=== PATIENT | female | born 1955 ===

== ENCOUNTER 2020-03-25 06:20 | Day surgery (SDC) | payer MEDICARE, MEDICAID, SELFPAY ==
[2020-03-19 13:16] VITALS: BMI 29.7
--- NOTE | 2020-03-21 15:33 | P.CONAN_ITS ---
Documented by User: Remedios Barclay 03/21/20 15:34 HPI - Anesthesia Eval Consult details Narrative: 64yo F for Upper Endoscopy and Colonoscopy FOR[facility] Past Medical History Medical History (Updated 03/19/20 @ 13:07 by Raven Glover) Arthritis GERD (gastroesophageal reflux disease) Hiatal hernia Restless leg syndrome Surgical History Surgical History (Updated 03/19/20 @ 13:24 by Raven Glover) History of carpal tunnel release History of ear surgery History of esophagogastroduodenoscopy (EGD) History of pterygium excision Hx of colonoscopy Hx of hysterectomy Social History Social History (Updated 03/19/20 @ 13:08 by Raven Glover) Alcohol intake: current Alcohol intake frequency: holidays/special occasions only Smoking Status: Never smoker Use of substances other than those prescribed or required for medical reasons: No Advance Directives: No Advance Directives Information Provided: No Advance Directives on File: No Meds Allergies Allergy/AdvReac Type Severity Reaction Status Date / Time metronidazole [Flagyl] Allergy Unknown unknown Verified 04/24/19 00:00 Penicillins Allergy Rash Verified 03/19/20 13:10 egg Allergy Unknown GI upset Uncoded 03/19/20 13:10 Codeine Sulfate AdvReac Unknown palpitation Uncoded 03/19/20 13:10 Home Medications Medication Instructions Recorded Confirmed Type ergocalciferol (vitamin D2) 1,250 mcg PO QWEEK 03/19/20 03/19/20 History [Vitamin D2] esomeprazole magnesium [Nexium] 40 mg PO DAILY 03/19/20 03/19/20 History ropinirole [Requip] 5 mg PO BEDTIME 03/19/20 03/19/20 History spironolactone 50 mg PO DAILY 03/19/20 03/19/20 History Exam Exam Date and Time: March 21, 2020 1533 Height,Weight and Vital Signs: Height 5 ft Weight 68.946 kg Assessment and Plan Assessment Anesthesia Assessment: Chart Reviewed Documented by User: Cira Shukla 03/25/20 07:14 [facility] Past Medical History Medical History (Updated 03/19/20 @ 13:07 by Raven Glover) Arthritis GERD (gastroesophageal reflux disease) Hiatal hernia Restless leg syndrome Surgical History Surgical History (Updated 03/19/20 @ 13:24 by Raven Glover) History of carpal tunnel release History of ear surgery History of esophagogastroduodenoscopy (EGD) History of pterygium excision Hx of colonoscopy Hx of hysterectomy Social History Social History (Updated 03/19/20 @ 13:08 by Raven Glover) Alcohol intake: current Alcohol intake frequency: holidays/special occasions only Smoking Status: Never smoker Use of substances other than those prescribed or required for medical reasons: No Advance Directives: No Advance Directives Information Provided: No Advance Directives on File: No Meds Allergies Allergy/AdvReac Type Severity Reaction Status Date / Time metronidazole [Flagyl] Allergy Unknown unknown Verified 04/24/19 00:00 Penicillins Allergy Rash Verified 03/19/20 13:10 egg Allergy Unknown GI upset Uncoded 03/19/20 13:10 Codeine Sulfate AdvReac Unknown palpitation Uncoded 03/19/20 13:10 Home Medications Medication Instructions Recorded Confirmed Type ergocalciferol (vitamin D2) 1,250 mcg PO QWEEK 03/19/20 03/19/20 History [Vitamin D2] esomeprazole magnesium [Nexium] 40 mg PO DAILY 03/19/20 03/19/20 History ropinirole [Requip] 5 mg PO BEDTIME 03/19/20 03/19/20 History spironolactone 50 mg PO DAILY 03/19/20 03/19/20 History Exam Airway Mallampati Class: II TM Dist: >3cm Neck ROM: Full Heart: RRr Lungs: CTA BL Assessment and Plan Assessment Anesthesia Assessment: Anesthesia Plan Discussed and Chart Reviewed Final Anesthetic Review NPO: Yes ASA Class: II Final Preanesthetic Review: Meds/Allgs Chart Reviewed and Consent Obtained/Reviewed Patient Risk: Intermediate Procedure Risk: Intermediate Anesthetic Plan Anesthetic Plan: MAC: Disposition: Standard PACU
[2020-03-25] MEDS: Lactated Ringers 1,000 ML 100 ML IVCONT (07:08)
[2020-03-25 08:41] VITALS: BP 108/67; PULSE 64; RESP 16; TEMP 37.3; O2SAT 96
--- NOTE | 2020-03-25 08:48 | PM.OP ---
Brief Operative Note Date of Service: 03/25/20 Pre-op diagnosis: Monique's, Screening Post-op diagnosis: other (Hiatal hernia, Gastric polyp, colon polyp, Internal/External hemorrhoids) Procedure: EGD bwith biopsy, Colonoscopy to cecum with bx/removal of polyp Surgeon: Prem Arroyo Anesthesia: MAC Estimated blood loss (mL): 3.0 Pathology: other (A. EG Junction at 35cm B. Gastric polyp C. Polyp at 60cm) Condition: stable Disposition: PACU
[2020-03-25 08:56] VITALS: BP 117/65; PULSE 61; RESP 18; TEMP 36.3; O2SAT 99
--- NOTE | 2020-03-25 09:19 | HO.POSTANES ---
Post Anesthesia Evaluation Post Anesthesia Evaluation Vital Signs: Vital Signs Temp Pulse Resp BP Pulse Ox 03/25/20 08:56 97.4 F 61 18 117/65 99 03/25/20 08:41 99.2 F 64 16 108/67 96 Anesthesia: Monitored Mental Status: Awake Pain Control: Satisfactory Nausea/Vomiting: None Hydration: Adequate Anesthesia-Related Issues: No Anes. Related Issues
--- NOTE | 2020-03-25 09:55 | OP_ITS ---
SURGEON: Prem Arroyo MD INDICATIONS: The patient presents for evaluation of gastroesophageal reflux, Monique's esophagus, personal history of tubular adenoma of the colon, family history of colon cancer, and colorectal cancer screening. Full consent was obtained from her for this, including risks of bleeding and perforation. PREOPERATIVE DIAGNOSIS: POSTOPERATIVE DIAGNOSIS: PROCEDURE PERFORMED: Esophagogastroduodenoscopy with biopsies, and colonoscopy to cecum with biopsy and removal of polyp. ESTIMATED BLOOD LOSS: COMPLICATIONS: ANESTHESIA: Monitored anesthesia care. ASSISTANTS: SPECIMENS: PREOPERATIVE DIAGNOSES: Monique's esophagus, personal history of tubular adenoma of the colon, family history of colon cancer, and colorectal cancer screening. POSTOPERATIVE DIAGNOSES: Monique's esophagus, personal history of tubular adenoma of the colon, family history of colon cancer, and colorectal cancer screening, hiatal hernia, gastric polyps, colon polyp, diverticulosis, internal and external hemorrhoids. DESCRIPTION OF PROCEDURE: The patient was placed in the left lateral decubitus position. The Olympus video gastroscope was passed in the posterior oropharynx and upper esophagus under direct vision. The scope was passed slowly into the distal esophagus. The gastroesophageal junction appeared at 35 cm. This area was somewhat irregular consistent with reflux and possible small less than 1 cm areas of Monique's mucosa. There was no esophagitis. There were no lesions. The scope was entered into the stomach. There was a small hiatal hernia. The scope was advanced to pylorus. The duodenum was cannulated the descending portion. The duodenum including the bulb appeared normal without mass or ulceration. Scope was withdrawn back in the stomach. The gastric antrum and body appeared normal with good peristalsis. The scope was retroflexed visualizing the proximal stomach carefully, which appeared normal, without any mass or ulceration, other than an approximately 8 mm probable hyperplastic polyps in the proximal stomach, which was biopsied twice. The remainder of the proximal stomach appeared normal. The scope was straightened and withdrawn back to the esophagus. Multiple biopsies were obtained at the EG junction at 35 cm. Proximal to this, the esophageal mucosa appeared normal. The scope was withdrawn from the patient. She was turned around for the colonoscopy. The digital rectal exam revealed external hemorrhoids. The Olympus video pediatric colonoscope was entered into the rectum and advanced easily to the cecum. Once in the cecum, I did identify normal-appearing cecal pouch with appendiceal orifice and a normal-appearing ileocecal valve. There was transillumination of light deep in the right lower quadrant. The scope was slowly withdrawn assessing all mucosal surfaces carefully. Preparation was excellent. At 60 cm was a flat approximately 3 mm polyp, which was biopsied and completely removed with cold biopsy forceps. I did not visualize any other polyps, colitis, or angiodysplasia. There was a moderate amount of sigmoid diverticulosis. In the rectum, scope was retroflexed visualizing internal hemorrhoids, but no other pathology. The rectal mucosa appeared normal. The scope was straightened and withdrawn from the patient. She tolerated both procedures well and was returned to recovery area in stable condition. IMPRESSION: 1. Hiatal hernia, history of Monique's esophagus. 2. Gastric polyp. 3. Colon polyp. 4. Diverticulosis. 5. Internal and external hemorrhoids. PLAN: The results of the pathology will be checked. I would recommend a repeat upper endoscopy and colonoscopy in 5 years. She will continue her Nexium for reflux. She was advised not to use any aspirin and NSAIDs for 1 week. MD MINAL Torres/VERONICA / [phone]
== END 2020-03-25 09:25 | disposition home or self-care (01) ==
PROVIDERS: PCP Internal Medicine; Visit Provider Internal Medicine
PROC: (CPT 45380; principal; 2020-03-25 07:30)
DX: Z12.11 Encounter for screening for malignant neoplasm of colon (principal); Z86.010 Personal history of colon polyps; Z80.0 Family history of malignant neoplasm of digestive organs; D12.4 Benign neoplasm of descending colon; K57.30 Diverticulosis of large intestine without perforation or abscess without bleeding; K64.8 Other hemorrhoids; K64.4 Residual hemorrhoidal skin tags; K22.70 Barrett's esophagus without dysplasia; K21.9 Gastro-esophageal reflux disease without esophagitis; K44.9 Diaphragmatic hernia without obstruction or gangrene; K31.7 Polyp of stomach and duodenum; B96.81 Helicobacter pylori [H. pylori] as the cause of diseases classified elsewhere; Z88.0 Allergy status to penicillin; Z88.8 Allergy status to other drugs, medicaments and biological substances; Z79.899 Other long term (current) drug therapy
CPT/HCPCS: 45380; 43239; 88305; 88342

== ENCOUNTER 2020-06-10 10:57 | Outpatient (REF) | payer MEDICARE, MEDICAID, SELFPAY ==
[2020-06-10 13:47] LABS: MANUAL DIFF FLAG NO
[2020-06-10 14:08] LABS: Basophils Absolute Auto 0.1 X10*3/uL (0.0-0.2); Basophils Percent Auto 0.7 % (0-2); Eosinophils Absolute Auto 0.1 X10*3/uL (0.0-0.4); Eosinophils Percent Auto 1.5 % (0-4); Hemoglobin 14.3 g/dl (12.0-16.0); Imm Gran Abs Auto 0.04 X10*3/uL (0.00-0.03); Imm Gran Pct Auto 0.5 % (0.0-0.4); Lymphocytes Absolute Auto 2.4 X10*3/uL (1.2-4.9); Lymphocytes Percent Auto 30.3 % (20-40); Mean Corpuscular HGB Conc 33.3 g/dl (31.0-35.0); Mean Corpuscular Hemoglobin 29.8 pg (27.0-33.0); Mean Corpuscular Volume 89.6 fL (80-98); Mean Platelet Volume 10.3 fL (9.4-12.3); Monocytes Absolute Auto 0.6 X10*3/uL (0.1-1.2); Monocytes Percent Auto 7.7 % (2-11); Neutrophils Absolute Auto 4.8 X10*3/uL (2.0-8.3); Neutrophils Percent Auto 59.3 % (45-73); Platelet Count 292 X10*3/uL (160-400); Red Cell Distribution Width 13.3 % (11.0-16.0)
[2020-06-10 14:26] LABS: Alanine Aminotransferase 18 U/L (0-31); Albumin Level 4.1 g/dL (3.5-5.0); Alkaline Phosphatase 116 U/L (39-117); Anion Gap 14 (12-20); Aspartate Amino Transferase 22 U/L (5-31); Bilirubin Total 0.7 mg/dL (0.0-1.0); Blood Urea Nitrogen 14 mg/dL (9-16); Calcium 9.1 mg/dL (8.4-10.2); Carbon Dioxide 27 mmol/L (22-29); Chloride 103 mmol/L (96-108); Cholesterol 222 mg/dL; Estimated Glomerular Filt Rate > 60; Glucose Fasting 117 mg/dL (60-99); HDL Cholesterol 45 mg/dL; LDL Cholesterol Calculated 139 mg/dl; Potassium 4.1 mmol/L (3.3-5.1); Sodium 140 mmol/L (135-145); Total Protein 7.3 g/dL (6.5-8.0); Triglycerides 194 mg/dL
[2020-06-10 14:48] LABS: Vitamin D 25-OH Total 36.3 ng/mL (>30)
== END 2020-06-10 10:58 | disposition home or self-care (01) ==
LOC: HO.HMGCLDS 10:57
PROVIDERS: PCP Internal Medicine; Visit Provider Internal Medicine
DX: E78.5 Hyperlipidemia, unspecified (principal); M85.80 Other specified disorders of bone density and structure, unspecified site; R73.01 Impaired fasting glucose; Z78.0 Asymptomatic menopausal state
CPT/HCPCS: 36415; 80053; 80061; 82306; 85025

== ENCOUNTER 2020-10-04 07:58 | Outpatient (REF) | payer MEDICARE, MEDICAID, SELFPAY ==
[2020-10-04 12:11] LABS: Estimated Average Glucose 146 mg/dL; Hemoglobin A1C 186.9595 umol/L; Hemoglobin A1c % 6.7 %
[2020-10-04 12:21] LABS: Alanine Aminotransferase 10 U/L (0-31); Anion Gap 13 (12-20); Aspartate Amino Transferase 20 U/L (5-31); Blood Urea Nitrogen 11 mg/dL (9-16); Calcium 9.5 mg/dL (8.4-10.2); Carbon Dioxide 26 mmol/L (22-29); Chloride 105 mmol/L (96-108); Cholesterol 202 mg/dL; Estimated Glomerular Filt Rate > 60; Glucose Fasting 129 mg/dL (60-99); HDL Cholesterol 44 mg/dL; LDL Cholesterol Calculated 128 mg/dl; Potassium 4.2 mmol/L (3.3-5.1); Sodium 140 mmol/L (135-145); Triglycerides 152 mg/dL
[2020-10-04 12:23] LABS: Vitamin D 25-OH Total 38.2 ng/mL (>30)
== END 2020-10-04 07:59 | disposition home or self-care (01) ==
LOC: HO.HMGCLDS 07:58
PROVIDERS: PCP Internal Medicine; Visit Provider Internal Medicine
DX: E78.5 Hyperlipidemia, unspecified (principal); M85.80 Other specified disorders of bone density and structure, unspecified site; R73.01 Impaired fasting glucose; Z78.0 Asymptomatic menopausal state; I10 Essential (primary) hypertension
CPT/HCPCS: 36415; 80048; 80061; 82306; 83036; 84450; 84460

== ENCOUNTER 2021-02-10 09:54 | Outpatient (REF) | payer MEDICARE, MEDICAID, SELFPAY ==
[2021-02-10 12:07] LABS: Alanine Aminotransferase 18 U/L (0-31); Anion Gap 12 (12-20); Aspartate Amino Transferase 24 U/L (5-31); Blood Urea Nitrogen 13 mg/dL (9-16); Calcium 9.6 mg/dL (8.4-10.2); Carbon Dioxide 26 mmol/L (22-29); Chloride 106 mmol/L (96-108); Cholesterol 198 mg/dL; Estimated Glomerular Filt Rate > 60; Glucose Fasting 116 mg/dL (60-99); HDL Cholesterol 45 mg/dL; LDL Cholesterol Calculated 120 mg/dl; Potassium 4.5 mmol/L (3.3-5.1); Sodium 139 mmol/L (135-145); Triglycerides 166 mg/dL
[2021-02-10 12:29] LABS: Microalbum/Creatinine Ratio Ur 5.2 ug/mg cr
[2021-02-10 12:55] LABS: Estimated Average Glucose 151 mg/dL; Hemoglobin A1c % 6.9 %
== END 2021-02-10 09:55 | disposition home or self-care (01) ==
LOC: HO.HMGCLDS 09:54
PROVIDERS: Visit Provider Internal Medicine
DX: E11.9 Type 2 diabetes mellitus without complications (principal); E78.5 Hyperlipidemia, unspecified; I10 Essential (primary) hypertension
CPT/HCPCS: 36415; 80048; 80061; 82043; 83036; 84450; 84460

== ENCOUNTER 2021-06-11 10:53 | Outpatient (REF) | payer OTHER, SELFPAY ==
[2021-06-11 13:44] LABS: Basophils Absolute Auto 0.1 X10*3/uL (0.0-0.2); Basophils Percent Auto 0.7 % (0-2); Eosinophils Absolute Auto 0.2 X10*3/uL (0.0-0.4); Eosinophils Percent Auto 1.8 % (0-4); Hematocrit 44.2 % (37.0-47.0); Hemoglobin 14.4 g/dl (12.0-16.0); Imm Gran Abs Auto 0.02 X10*3/uL (0.00-0.03); Imm Gran Pct Auto 0.2 % (0.0-0.4); Lymphocytes Absolute Auto 3.2 X10*3/uL (1.2-4.9); Lymphocytes Percent Auto 32.8 % (20-40); MANUAL DIFF FLAG NO; Mean Corpuscular HGB Conc 32.6 g/dl (31.0-35.0); Mean Corpuscular Hemoglobin 29.6 pg (27.0-33.0); Mean Corpuscular Volume 90.8 fL (80.0-98.0); Mean Platelet Volume 10.1 fL (9.4-12.3); Monocytes Absolute Auto 0.7 X10*3/uL (0.1-1.2); Monocytes Percent Auto 7.6 % (2-11); Neutrophils Absolute Auto 5.6 x10*3/uL (2.0-8.3); Neutrophils Percent Auto 56.9 % (45-73); Platelet Count 324 X10*3/uL (160-400); Red Blood Count 4.87 X10*6/uL (4.20-5.50); Red Cell Distribution Width 13.9 % (11.0-16.0); White Blood Count 9.8 X10*3/uL (4.8-10.8)
[2021-06-11 13:58] LABS: Estimated Average Glucose 137 mg/dL; Hemoglobin A1c % 6.4 %
[2021-06-11 13:59] LABS: Alanine Aminotransferase 17 U/L (0-31); Anion Gap 11 (12-20); Aspartate Amino Transferase 20 U/L (5-31); Blood Urea Nitrogen 11 mg/dL (9-16); Calcium 9.8 mg/dL (8.4-10.2); Carbon Dioxide 30 mmol/L (22-29); Chloride 103 mmol/L (96-108); Cholesterol 156 mg/dL; Estimated Glomerular Filt Rate > 60; Glucose Fasting 109 mg/dL (60-99); HDL Cholesterol 43 mg/dL; LDL Cholesterol Calculated 82 mg/dl; Potassium 4.5 mmol/L (3.3-5.1); Sodium 139 mmol/L (135-145); Triglycerides 155 mg/dL
[2021-06-11 14:13] LABS: Creatinine Urine 299.11 mg/dL
[2021-06-11 14:24] LABS: Vitamin D 25-OH Total 37.4 ng/mL (>30)
[2021-06-11 14:33] LABS: Microalbum/Creatinine Ratio Ur 6.3 ug/mg cr
== END 2021-06-11 10:54 | disposition home or self-care (01) ==
LOC: HO.HMGCLDS 10:53
PROVIDERS: PCP Internal Medicine; Visit Provider Internal Medicine
DX: E11.9 Type 2 diabetes mellitus without complications (principal); E78.5 Hyperlipidemia, unspecified; I10 Essential (primary) hypertension; K21.9 Gastro-esophageal reflux disease without esophagitis; G25.81 Restless legs syndrome; M85.80 Other specified disorders of bone density and structure, unspecified site; Z78.0 Asymptomatic menopausal state
CPT/HCPCS: 36415; 80048; 80061; 82043; 82306; 83036; 84450; 84460; 85025

== ENCOUNTER 2022-04-16 09:47 | Outpatient (REF) | payer OTHER, SELFPAY ==
[2022-04-16 12:01] LABS: Alanine Aminotransferase 17 U/L (0-31); Anion Gap 13 (12-20); Aspartate Amino Transferase 23 U/L (5-31); Blood Urea Nitrogen 10 mg/dL (9-16); Calcium 9.7 mg/dL (8.4-10.2); Carbon Dioxide 28 mmol/L (22-29); Chloride 104 mmol/L (96-108); Cholesterol 191 mg/dL; Estimated Glomerular Filt Rate > 60; Glucose Fasting 115 mg/dL (60-99); HDL Cholesterol 51 mg/dL; LDL Cholesterol Calculated 110 mg/dl; Potassium 4.2 mmol/L (3.3-5.1); Sodium 141 mmol/L (135-145); Triglycerides 152 mg/dL
[2022-04-16 12:10] LABS: Estimated Average Glucose 131 mg/dL; Hemoglobin A1c % 6.2 %
[2022-04-16 12:23] LABS: Vitamin D 25-OH Total 31.8 ng/mL (>30)
== END 2022-04-16 09:48 | disposition home or self-care (01) ==
LOC: HO.HMGCLDS 09:47
PROVIDERS: PCP Internal Medicine; Visit Provider Internal Medicine
DX: E11.9 Type 2 diabetes mellitus without complications (principal); E78.5 Hyperlipidemia, unspecified; M85.80 Other specified disorders of bone density and structure, unspecified site; Z78.0 Asymptomatic menopausal state
CPT/HCPCS: 36415; 80048; 80061; 82306; 83036; 84450; 84460

== ENCOUNTER 2022-04-27 16:33 | Outpatient (REF) | payer OTHER, SELFPAY ==
[2022-04-27 17:53] LABS: Influenza A PCR NEGATIVE (Negative); Influenza B PCR NEGATIVE (Negative); Resp Syncy Virus RNA Qual PCR NEGATIVE (Negative); SARS COV2 PCR INHOUSE NEGATIVE (Negative)
== END 2022-04-27 16:34 | disposition home or self-care (01) ==
LOC: HO.LNP 16:33
PROVIDERS: Visit Provider Physician Assistant
DX: Z20.822 Contact with and (suspected) exposure to COVID-19 (principal)
CPT/HCPCS: 0241U

== ENCOUNTER 2022-05-15 11:47 | Outpatient (AMB) | payer OTHER, SELFPAY ==
[2022-05-15 12:42] VITALS: BP 110/66; PULSE 69; O2SAT 98; BMI 27.7
--- NOTE | 2022-05-15 12:42 | MHC.PC.OV ---
Vital Signs 05/15/22 12:42 Height 5 ft Weight 142 lb BMI 27.7 BP 110/66 Blood Pressure Location Lt brachial Position Sitting Pulse 69 Pulse Source Pulse Oximeter Pulse Oximetry (%) 98 Oxygen Delivery Method Room Air Intake Visit Reasons: Follow up Ear Infection/Walk in 05/05 Intake Note: Pt is here today for a follow up visit after being seen in a walk in twice. Pt states that she still has a cough and her ears are clogged. Allergies metronidazole [Flagyl] Allergy (Unknown, Verified 07/05/23 23:36) unknown Penicillins Allergy (Verified 07/05/23 23:36) Rash egg Allergy (Unknown, Uncoded 07/05/23 23:36) GI upset Codeine Sulfate Adverse Reaction (Unknown, Uncoded 07/05/23 23:36) palpitation Medication List - Last Reconciled 07/06/23 by Argelia Salas MD dicyclomine 20 mg PO BID docusate sodium (DOK) 100 mg PO DAILY lorazepam 0.5 mg PO ONCE PRN omeprazole 40 mg PO DAILY ropinirole 1 mg PO DAILY rosuvastatin 5 mg PO DAILY 90 days spironolactone 50 mg PO DAILY Tobacco use date assessed: 04/17/22 HPI Follow up Ear Infection/Walk in 05/05 HPI Details 67-year-old lady here today for follow-up. She has been seen twice at the walk-in clinic for ear pain, diagnosed with acute otitis media and initially was given doxycycline and ciprofloxacin with bedtime methods some ear drops which afforded only temporary relief. She then presented again to walk-in clinic after a week complaining of cough and nasal congestion as well as earache and was prescribed prednisone and meloxicam which she states has been helping. However she still has a dry cough and sore throat, but has been afebrile , no shortness of breath or ear discharge reported. [facility] Medical History Irritable bowel syndrome with constipation Depression, major, in remission Blurred vision, right eye Tubular adenoma of colon Type 2 diabetes mellitus without complication, with no history of insulin use Heartburn Hirsutism RLS (restless legs syndrome) Osteopenia Dyslipidemia Arthritis Hiatal hernia GERD (gastroesophageal reflux disease) Surgical History History of pterygium excision History of ear surgery History of carpal tunnel release Hx of hysterectomy History of esophagogastroduodenoscopy (EGD) Hx of colonoscopy Family History Mother Mental health disorder Social History Housing: House Alcohol intake: current Alcohol intake frequency: holidays/special occasions only Patient Tobacco Use Status: Never used Tobacco e-Cigarette/Vaping Use: Never Used Second Hand Smoke Exposure: No service: No Current occupational status: unemployed Cognitive needs: No Hearing needs: No Vision needs: Yes Questionnaire Thrive Questionnaire Date Thrive assessed: 06/17/21 FUNMILAYO-7 AMB Questionnaire FUNMILAYO-7 Date FUNMILAYO - 7 assessed: 06/17/21 Source: Developed by Drs. Prem Palacios, Radha Arambula, Cody Rousseau and colleagues, with an educational cameron from [employer]. Review of Systems Const All systems reviewed & are unremarkable except as noted in HPI and below Physical exam (Primary Care) Vital Signs: Last Vital Signs Pulse 69 05/15/22 12:42 BP 110/66 05/15/22 12:42 Pulse Ox 98 05/15/22 12:42 Oxygen Delivery Method Room Air 05/15/22 12:42 BMI result Body Mass Index 27.7 Tobacco/Smoking Status: Tobacco use Status Tobacco use date assessed 04/17/22 05/15/22 12:47 Patient Tobacco Use Status Never used Tobacco 05/15/22 12:47 e-Cigarette/Vaping Use Never Used 05/15/22 12:47 Thrive Assessment: Date of Thrive Assessment Date Thrive assessed 06/17/21 05/15/22 12:47 Const Other: Alert oriented x3, no acute distress noted, ambulatory normal gait Orientation/consciousness: patient oriented x3 HENMT Head: Yes normocephalic Ears: hearing grossly normal bilaterally, external ears normal, TM's normal bilaterally and EAC's normal Mouth: Normal oral and palatal mucosa present, tongue normal, oropharynx normal and moist mucous membranes Throat: Yes posterior oropharynx normal Eyes General: appearance normal, both eyes and all related structures Neck Neck: Yes full ROM, Yes no lymphadenopathy and Yes supple Resp Auscultation: clear to auscultation bilaterally Cardio Other: S1-S2 present regular rate and rhythm Neuro General: patient oriented x3, gait normal, tone normal, moves all extremities and no focal motor deficits Extrem General: Yes full ROM, Yes no joint enlargement, Yes no clubbing, cyanosis or edema, Yes no pedal edema, Yes no calf tenderness and Yes normal gait Assessment and Plan Assessment & Plan (1) Acute pharyngitis: Code(s): J02.9 - Acute pharyngitis, unspecified Plan: Prescription sent for Magic mouthwash, to gargle and spit 5 mL 3 to 4 times a day as needed for her sore throat. May take Tylenol as needed for any generalized body aches or fever that may develop. Return to clinic if no improvement of symptoms after a week Medications: New Magic Mouthwash Diphen/Lido/Antacid 1:1:1 Lidocaine Viscous 2 % 80mL; diphenhydramine 12.5 mg/5 mL 80mL; aluminum-mag hydrox-simeth [id number]/5mL 80mL 5 mL PO QID PRN 240 mL 0RF sore throat Coding Level of Care Code Est Pt Level 3 (73038) Diagnoses Acute pharyngitis J02.9
== END 2022-05-15 13:40 | disposition home or self-care (01) ==
LOC: HO.HMGC 11:47
PROVIDERS: PCP Internal Medicine; Visit Provider Internal Medicine
DX: J02.9 Acute pharyngitis, unspecified (principal)
CPT/HCPCS: 99499

== ENCOUNTER 2022-07-10 09:38 | Outpatient (REF) | payer OTHER, SELFPAY ==
[2022-07-10 12:04] LABS: Estimated Average Glucose 123 mg/dL; Hemoglobin A1c % 5.9 %
[2022-07-10 12:35] LABS: Alanine Aminotransferase 13 U/L (0-31); Anion Gap 9 (12-20); Aspartate Amino Transferase 20 U/L (5-31); Blood Urea Nitrogen 10 mg/dL (9-16); Calcium 9.4 mg/dL (8.4-10.2); Carbon Dioxide 29 mmol/L (22-29); Chloride 106 mmol/L (96-108); Cholesterol 192 mg/dL; Estimated Glomerular Filt Rate > 60; Glucose Fasting 109 mg/dL (60-99); HDL Cholesterol 53 mg/dL; LDL Cholesterol Calculated 113 mg/dl; Potassium 4.4 mmol/L (3.3-5.1); Sodium 140 mmol/L (135-145); Triglycerides 134 mg/dL; Vitamin D 25-OH Total 31.9 ng/mL (>30)
== END 2022-07-10 09:39 | disposition home or self-care (01) ==
LOC: HO.HMGCLDS 09:38
PROVIDERS: PCP Internal Medicine; Visit Provider Internal Medicine
DX: E11.9 Type 2 diabetes mellitus without complications (principal); E78.5 Hyperlipidemia, unspecified; K58.1 Irritable bowel syndrome with constipation; M85.80 Other specified disorders of bone density and structure, unspecified site; Z78.0 Asymptomatic menopausal state
CPT/HCPCS: 36415; 80048; 80061; 82306; 83036; 84450; 84460

== ENCOUNTER 2022-12-24 15:28 | Outpatient (AMB) | payer OTHER, SELFPAY ==
[2022-12-24 15:34] VITALS: BP 118/60; PULSE 70; O2SAT 97; BMI 29.5
--- NOTE | 2022-12-24 15:34 | A.OFFPC_ITS ---
Vital Signs 12/24/22 15:34 Height 5 ft Weight 151 lb BMI 29.5 BP 118/60 Blood Pressure Location Rt brachial Position Sitting Pulse 70 Pulse Source Pulse Oximeter Pulse Oximetry (%) 97 Oxygen Delivery Method Room Air Intake Visit Reasons: L side rib pain Intake Note: pt is here today for L side rib pain Allergies metronidazole [Flagyl] Allergy (Unknown, Verified 12/24/22 16:16) unknown Penicillins Allergy (Verified 12/24/22 16:16) Rash egg Allergy (Unknown, Uncoded 12/24/22 16:16) GI upset Codeine Sulfate Adverse Reaction (Unknown, Uncoded 12/24/22 16:16) palpitation Medication List - Last Reconciled 12/24/22 by Argelia Salas MD dicyclomine 20 mg PO BID docusate sodium (DOK) 100 mg PO DAILY lorazepam 0.5 mg PO ONCE PRN Magic Mouthwash Diphen/Lido/Antacid 1:1:1 5 mL PO QID PRN meloxicam 15 mg PO DAILY omeprazole 40 mg PO DAILY ropinirole 1 mg PO DAILY rosuvastatin 5 mg PO DAILY 90 days spironolactone 50 mg PO DAILY Tobacco use date assessed: 12/24/22 Fall risk assessment: No Falls in past year Last assessed Fall Risk: 12/24/22 Dental Screening Dental Screen Date: 12/24/22 Did you have a dental visit in the last 12 months?: No Did you have a dental problem in the last 6 months where you did not have access to dental care?: No Was dental information given to patient?: Patient has dentist HPI L side rib pain HPI Details 67-year-old lady here today complaining of acute onset of burning pain on her left lower back, radiating up to left mid back up to left side of chest, which started approximately 4 days ago. Patient then started noticing burning rash on left mid back extending to under depressed yesterday. Unable to lie on her left side due to pain. [facility] Medical History (Updated 12/24/22 @ 17:33 by Argelia Salas MD) Irritable bowel syndrome with constipation Depression, major, in remission Blurred vision, right eye Tubular adenoma of colon Type 2 diabetes mellitus without complication, with no history of insulin use Heartburn Hirsutism RLS (restless legs syndrome) Osteopenia Dyslipidemia Arthritis Hiatal hernia GERD (gastroesophageal reflux disease) Surgical History History of pterygium excision History of ear surgery History of carpal tunnel release Hx of hysterectomy History of esophagogastroduodenoscopy (EGD) Hx of colonoscopy Family History Mother Mental health disorder Social History Housing: House Alcohol intake: current Alcohol intake frequency: holidays/special occasions only Patient Tobacco Use Status: Never used Tobacco e-Cigarette/Vaping Use: Never Used Second Hand Smoke Exposure: No service: No Current occupational status: unemployed Cognitive needs: No Hearing needs: No Vision needs: Yes Questionnaire Thrive Questionnaire Date Thrive assessed: 07/15/22 AUDIT C Alcohol Use Questionnaire (AUDIT-C) 1. How often do you have a drink containing alcohol?: Never Total Score: 0 FUNMILAYO-7 AMB Questionnaire FUNMILAYO-7 Date FUNMILAYO - 7 assessed: 06/17/21 Source: Developed by Drs. Prem Palacios, Radha Arambula, Cody Rousseau and colleagues, with an educational cameron from [employer]. Review of Systems Const All systems reviewed & are unremarkable except as noted in HPI and below Physical exam (Primary Care) Vital Signs: Last Vital Signs Pulse 70 12/24/22 15:34 BP 118/60 12/24/22 15:34 Pulse Ox 97 12/24/22 15:34 Oxygen Delivery Method Room Air 12/24/22 15:34 BMI result Body Mass Index 29.5 Tobacco/Smoking Status: Tobacco use Status Tobacco use date assessed 12/24/22 12/24/22 15:50 Patient Tobacco Use Status Never used Tobacco 12/24/22 15:36 e-Cigarette/Vaping Use Never Used 12/24/22 15:36 Thrive Assessment: Date of Thrive Assessment Date Thrive assessed 07/15/22 12/24/22 15:36 Const Other: Alert oriented x3, no acute distress noted, ambulatory normal gait Orientation/consciousness: patient oriented x3 Neck Neck: Yes full ROM, Yes no lymphadenopathy and Yes supple Chest Other: Erythematous papular rash in a linear fashion on left anterior chest under the breast extending to left mid back along the bra line Resp Auscultation: clear to auscultation bilaterally Cardio Other: S1-S2 present regular rate and rhythm Back/Spine/Pelvis Back: back tenderness (Left mid back on palpation and on movement of trunk) Skin Other: Erythematous papular lesion scattered in a linear fashion extending from left anterior chest to left mid back along the bra line Neuro General: patient oriented x3, gait normal, tone normal, moves all extremities and no focal motor deficits Assessment and Plan Assessment & Plan (1) Herpes zoster: Code(s): B02.9 - Zoster without complications Qualifiers: Herpes zoster complications: without complications Qualified Code(s): B02.9 - Zoster without complications (2) HZV (herpes zoster virus) post herpetic neuralgia: Code(s): B02.29 - Other postherpetic nervous system involvement Medications: New valacyclovir 1,000 mg PO Q8H 21 tabs 0RF 7 days B02.9 - Zoster without complications gabapentin 300 mg PO BEDTIME 30 caps 1RF B02.29 - Other postherpetic nervous system involvement Coding Level of Care Code Est Pt Level 3 (10165) Diagnoses Herpes zoster without complication B02.9 Herpes zoster complications: without complications HZV (herpes zoster virus) post herpetic neuralgia B02.29
== END 2022-12-24 16:46 | disposition home or self-care (01) ==
PROVIDERS: PCP Internal Medicine; Visit Provider Internal Medicine
DX: B02.9 Zoster without complications (principal); B02.29 Other postherpetic nervous system involvement
CPT/HCPCS: 99213

== ENCOUNTER 2023-01-25 09:29 | Outpatient (REF) | payer OTHER, SELFPAY ==
[2023-01-25 11:13] LABS: MANUAL DIFF FLAG NO
[2023-01-25 11:36] LABS: Estimated Average Glucose 123 mg/dL; Hemoglobin A1c % 5.9 % (<6.0)
[2023-01-25 11:42] LABS: Basophils Absolute Auto 0.1 X10*3/uL (0.0-0.2); Basophils Percent Auto 0.7 % (0-2); Eosinophils Absolute Auto 0.2 X10*3/uL (0.0-0.4); Eosinophils Percent Auto 2.7 % (0-4); Hematocrit 43.2 % (37.0-47.0); Hemoglobin 14.4 g/dl (12.0-16.0); Imm Gran Abs Auto 0.02 X10*3/uL (0.00-0.03); Imm Gran Pct Auto 0.2 % (0.0-0.4); Lymphocytes Absolute Auto 3.2 X10*3/uL (1.2-4.9); Lymphocytes Percent Auto 38.5 % (20-40); Mean Corpuscular HGB Conc 33.3 g/dl (31.0-35.0); Mean Corpuscular Hemoglobin 29.4 pg (27.0-33.0); Mean Corpuscular Volume 88.2 fL (80.0-98.0); Mean Platelet Volume 10.7 fL (9.4-12.3); Monocytes Absolute Auto 0.7 X10*3/uL (0.1-1.2); Monocytes Percent Auto 8.8 % (2-11); Neutrophils Absolute Auto 4.1 x10*3/uL (2.0-8.3); Neutrophils Percent Auto 49.1 % (45-73); Platelet Count 211 X10*3/uL (160-400); Red Cell Distribution Width 13.8 % (11.0-16.0); White Blood Count 8.3 X10*3/uL (4.8-10.8)
[2023-01-25 11:58] LABS: Creatinine Urine 359.58 mg/dL; Microalbum/Creatinine Ratio Ur 6.1 ug/mg cr (<30)
[2023-01-25 12:01] LABS: Alanine Aminotransferase 18 U/L (0-31); Anion Gap 14 (12-20); Aspartate Amino Transferase 21 U/L (5-31); Blood Urea Nitrogen 10 mg/dL (9-16); Calcium 9.3 mg/dL (8.4-10.2); Carbon Dioxide 28 mmol/L (22-29); Chloride 103 mmol/L (96-108); Cholesterol 249 mg/dL (<200); Estimated Glomerular Filt Rate > 60; Glucose Fasting 101 mg/dL (60-99); HDL Cholesterol 49 mg/dL (>40); LDL Cholesterol Calculated 174 mg/dL (<100); Potassium 3.7 mmol/L (3.3-5.1); Sodium 141 mmol/L (135-145); Triglycerides 134 mg/dL (<150)
[2023-01-25 12:17] LABS: Vitamin D 25-OH Total 34.1 ng/mL (>30)
== END 2023-01-25 09:30 | disposition home or self-care (01) ==
LOC: HO.HMGCLDS 09:29
PROVIDERS: PCP Internal Medicine; Visit Provider Internal Medicine
DX: F32.5 Major depressive disorder, single episode, in full remission (principal); K21.9 Gastro-esophageal reflux disease without esophagitis; K44.9 Diaphragmatic hernia without obstruction or gangrene; E11.9 Type 2 diabetes mellitus without complications; G25.81 Restless legs syndrome; M85.80 Other specified disorders of bone density and structure, unspecified site; E78.5 Hyperlipidemia, unspecified; Z78.0 Asymptomatic menopausal state
CPT/HCPCS: 36415; 80048; 80061; 82043; 82306; 82570; 83036; 84450; 84460; 85025

== ENCOUNTER 2023-01-28 12:55 | Outpatient (AMB) | payer OTHER, SELFPAY ==
--- NOTE | 2023-01-28 13:03 | AM.OFFVISMDC ---
Intake Vital Signs 01/28/23 13:05 Height 5 ft Weight 149 lb 2 oz BMI 29.1 BP 130/76 Blood Pressure Location Lt brachial Position Sitting Pulse 83 Pulse Source Pulse Oximeter Pulse Oximetry (%) 96 Oxygen Delivery Method Room Air Intake Visit Reasons: SWV [id number] Allergies metronidazole [Flagyl] Allergy (Unknown, Verified 01/28/23 13:33) unknown Penicillins Allergy (Verified 01/28/23 13:33) Rash egg Allergy (Unknown, Uncoded 01/28/23 13:33) GI upset Codeine Sulfate Adverse Reaction (Unknown, Uncoded 01/28/23 13:33) palpitation Medication List - Last Reconciled 01/28/23 by Argelia Salas MD dicyclomine 20 mg PO BID docusate sodium (DOK) 100 mg PO DAILY gabapentin 300 mg PO Q8H lorazepam 0.5 mg PO ONCE PRN omeprazole 40 mg PO DAILY ropinirole 1 mg PO DAILY rosuvastatin 5 mg PO DAILY 90 days spironolactone 50 mg PO DAILY HPI SWV G0439 HPI Details SWV ? 58 year old lady with type 2 diabetes mellitus, restless leg syndrome, osteopenia, dyslipidemia, depression in remission, IBS with constipation, presents for her ? Annual Wellness Visit, subsequent visit.? She is up-to-date with her screening mammogram done at [facility] last May 2022. She no longer gets her cervical cancer screening, she had a colonoscopy done by Dr. Fish 03/25/2020 with removal of a tubular adenoma, to be repeated again in 5 years. Patient states that she had already had a bone density done at [facility] earlier this year will obtain a copy of results. She had a fasting lipid panel done 01/25/2023 which showed an LDL cholesterol at 179 mg/dL, most recent hemoglobin A1c done 01/25/2023 was 5.9%. She does not want to get yearly flu shots, is up-to-date with her pneumococcal vaccination reminded to get her COVID booster ? Medical / Social History Reviewed? Past Medical History ?Yes . ? [place] of Care / Care Team list updated ?Yes . ? Surgical/Hospitalization History ?Yes . ? Current Medications (including OTC and supplements) ?Yes . ? Family History ?Yes . ? Tobacco Control form ?Yes . ? AUDIT-C (Alcohol use) form ?Yes . ? Illicit drug use in Social History ?Yes . ? Current diagnosis of depression? ?No ? Appropriate PHQ2/PHQ9 completed ?Yes . ? Data entered by ?[employer] and reviewed by provider ? Fall Risk ? Fall History? Have you had any falls with injury in the past year? ?No . ? Have you had two or more falls in the past year? ?No . ? Fall Risk Assessment: ?No falls in the past year . ? HRA filled out by the patient, reviewed by Provider and scanned. ?? SWV ? Balance? Romberg ?Yes . ? Tandem walk ?Yes . ? Walk and Turn ?Yes . ? Rise from sit to stand ?Yes . ?Vision? Corrective lens ?Yes ? Vision screen ? Up-to-date, she sees Dr. Curtis ?Hearing? Whisper test ?pass . ?Written Plan?Completed. See Patient Documents.? PFSH Medical History Irritable bowel syndrome with constipation Depression, major, in remission Blurred vision, right eye Tubular adenoma of colon Type 2 diabetes mellitus without complication, with no history of insulin use Heartburn Hirsutism RLS (restless legs syndrome) Osteopenia Dyslipidemia Arthritis Hiatal hernia GERD (gastroesophageal reflux disease) Surgical History History of pterygium excision History of ear surgery History of carpal tunnel release Hx of hysterectomy History of esophagogastroduodenoscopy (EGD) Hx of colonoscopy Family History Mother Mental health disorder Social History Housing: House Alcohol intake: current Alcohol intake frequency: holidays/special occasions only Patient Tobacco Use Status: Never used Tobacco e-Cigarette/Vaping Use: Never Used Second Hand Smoke Exposure: No service: No Current occupational status: unemployed Cognitive needs: No Hearing needs: No Vision needs: Yes Questionnaire Medicare Wellness Checkup What [age] What gender do you identify with?: female During the past 4 weeks, how much have you been bothered by emotional problems such as feeling anxious, depressed, irritable, sad or downhearted, and blue?: not at all During the past 4 weeks, has your physical & emotional health limited your social activities with family, friends, neighbors, or groups?: slightly During the past 4 weeks, how much bodily pain have you generally had?: moderate pain During the past 4 weeks, was someone available to help you if you needed & wanted help?: yes, a little During the past 4 weeks, what was the hardest physical activity you could do for at least 2 minutes?: light Can you get to places out of walking distance without help? (For eg., can you travel alone on buses, taxis or drive your car?): Yes Can you go shopping for groceries or clothes without someone's help?: Yes Can you prepare your own meals?: Yes Can you do your housework without help?: Yes Because of any health problems, do you need the help of another person with your personal care needs such as eating, bathing, dressing or getting around the house?: No Can you handle your own money without help?: Yes During the past 4 weeks, how would you rate your health in general?: fair During the past 4 weeks how have things been going for you?: good & bad parts about equal Are you having difficulties driving your car?: no Do you always fasten your seat belt when you are in a car?: yes, usually During past 4 weeks, have you been bothered by the following: never: Falling or dizzy when standing up, Sexual problems?, Trouble eating well?, Teeth or denture problems?, Problems using the telephone? and Tiredness or fatigue? Have you fallen 2 or more times in the past year?: No Are you afraid of falling?: No Are you a smoker?: no During the past 4 weeks, how many drinks of wine, beer, or other alcoholic beverages did you have?: no alcohol at all Do you exercise for about 20 minutes 3 or more times a week?: no, I usually do not exercise this much Have you been given information to help with the following?: no: Hazards in your house that might hurt you? and no: Keeping track of your medications? How often do you have trouble taking medicines the way you have been told to take them?: I always take medicine as prescribed How confident are you that you can control & manage most of your health problems?: very confident What is your race?: or origin or descent Mini Mental State Exam (MMSE) Orientation What is the (year) (season) (date) (day) (month)?: year (2022), season (fall), date (01/28/23), day () and month (jan) Where are we (state) (county) (town or city) (hospital) (floor)?: state ([place]), county ([place]), town or city ([place]) and hospital/clinic ([facility]) Score Score: 9 Activity of Daily Living Bathing - sponge bath, tub bath or shower: receives no assistance (gets in/out by self, if usual bathing means Dressing - getting clothes from closets & drawers, including inner/outer garments & fasteners.: gets clothes & gets completely dressed without help Toileting - going to the 'toilet room' for urine/bowel elimination & cleaning self/arranging clothes: goes to toilet room, cleans self, arranges clothes without help Transfer: moves in & out of bed and chair without help (may use support object) Continence: has occasional 'accidents' Feeding: feeds self without help Total Score: 0 Information obtained from: patient Using telephone: independent Traveling: independent Shopping: independent Preparing meals: independent Housework: independent Taking medicine: independent Managing money: independent PHQ-9 Over the last 2 weeks, how often have you been bothered by any of the following problems? 1. Little interest or pleasure in doing things: not at all 2. Feeling down, depressed, or hopeless: not at all 3. Trouble falling or staying asleep, or sleeping too much: not at all 4. Feeling tired or having little energy: not at all 5. Poor appetite or overeating: not at all 6. Feeling bad about yourself - or that you are a failure or have let yourself or your family down: not at all 7. Trouble concentrating on things, such as reading the newspaper or watching television: not at all 8. Moving or speaking so slowly that other people could have noticed. Or the opposite - being so fidgety or restless that you have been moving around a lot more than usual: not at all 9. Thoughts that you would be better off or of hurting yourself in some way: not at all Total score: 0 Depression Screening Interpretation: Negative Depression Screening Done: Yes 25003 - PHQ-9 Billing: Yes Source: Developed by Drs. Prem Palacios, Radha Arambula, Cody Rousseau and colleagues, with an educational cameron from [employer]. Review of Systems ENT Details: decreased hearing righy ear , sees Dr Dowling Physical Exam Vital Signs: Last Vital Signs Pulse 83 01/28/23 13:05 BP 130/76 01/28/23 13:05 Pulse Ox 96 01/28/23 13:05 Oxygen Delivery Method Room Air 01/28/23 13:05 BMI result Body Mass Index 29.1 Results Reviewed Results Reviewed: Name: Martha Lopez Age/Sex: 67/F : 1955 Unit#: [id number] Attend Dr: Argelia Salas MD Re01/25/23 Status: DEP REF Location: [facility] Disch: SPEC : [id number] PETRA: 01/25/23 STATUS: COMP REQ : [id number] RECD: 01/25/[address]: Argelia Salas MD COMP: 01/25/23 ENTERED: 01/25/[address]: ORDERED: Met Prof Fast, AST, ALT, Lipid Panel, Vitamin D 25-OH Test Result Flag Reference Site Sodium 141 135-145 mmol/L Potassium 3.7 3.3-5.1 mmol/L CL 103 96-108 mmol/L CO2 28 22-29 mmol/L Gap 14 12-20 BUN 10 9-16 mg/dL Creat 0.78 0.5-1.4 mg/dL EGFR > 60 NOTE: For -Greek individuals, multiply the result by 1.210. Chronic Kidney Disease: Estimated GFR < 60 mL/min/1.73m2 Severe Kidney Disease: Estimated GFR < 15 mL/min/1.73m2 FBS 101 H 60-99 mg/dL A fasting glucose from 100-125 mg/dl is considered impaired (pre-diabetes). CA 9.3 8.4-10.2 mg/dL AST (GOT) 21 5-31 U/L ALT (GPT) 18 0-31 U/L Triglyceride 134 <150 mg/dL Desirable Triglyceride: less than 150 mg/dL Borderline High Triglyceride 150-199 mg/dL High Triglyceride: 200-499 mg/dL Very High Triglyceride: greater than or equal to 5OO mg/dL Cholesterol 249 H <200 mg/dL Desirable Cholesterol: less than 200 mg/dL Borderline High Cholesterol: 200-239 mg/dL High Cholesterol: greater than 239 mg/dL LDL Calculated 174 H <100 mg/dL Desirable LDL: less than 100 mg/dL Near Optimal/Above Optimal LDL: 110-129 mg/dL Borderline High LDL: 130-159 mg/dL High LDL: 160-189 mg/dL Very High LDL: greater than or equal to 190 mg/dL HDL 49 >40 mg/dL Desirable HDL: greater than 40 mg/dL Note: This HDL assay may give artificially low results in patients with liver disease. Vit D 25-OH Tot 34.1 >30 ng/mL Health Based Reference Values* < 20 ng/mL Deficient 20-30 ng/mL Insufficient > 30 ng/mL Sufficient Laboratory Tests 07/10/22 01/25/23 09:43 09:38 Estimat Average Glucose 123 123 Hemoglobin A1c % 5.9 5.9 Assessment & Plan Assessment & Plan (1) Depression, major, in remission: Code(s): F32.5 - Major depressive disorder, single episode, in full remission Plan: Takes lorazepam as needed (2) GERD (gastroesophageal reflux disease): Code(s): K21.9 - Gastro-esophageal reflux disease without esophagitis Plan: Currently on omeprazole 40 mg daily (3) Type 2 diabetes mellitus without complication, with no history of insulin use: Code(s): E11.9 - Type 2 diabetes mellitus without complications Plan: Currently diet controlled (4) Dyslipidemia: Code(s): E78.5 - Hyperlipidemia, unspecified Plan: On rosuvastatin 5 mg daily (5) RLS (restless legs syndrome): Code(s): G25.81 - Restless legs syndrome Plan: Takes ropinirole 1 mg once at bedtime (6) Osteopenia: Code(s): M85.80 - Other specified disorders of bone density and structure, unspecified site Qualifiers: Osteopenia location: hip Plan: Stressed importance stressed importance of doing regular weight-bearing exercise, take adequate calcium from dietary sources and taking vitamin-D 3 supplement at least 2000 units daily (7) Irritable bowel syndrome with constipation: Code(s): K58.1 - Irritable bowel syndrome with constipation Plan: On dicyclomine and takes docusate sodium 100 mg daily (8) Encounter for subsequent annual wellness visit (AWV) in Medicare patient: Code(s): Z00.00 - Encounter for general adult medical examination without abnormal findings Plan: Medical wellness checklist reviewed, discussed, and updated., copy given to patient. Quality Reporting (2019) Depression/Bipolar (159/160/161/177) PHQ-9: Total score: 0 Coding Level of Care Code Medicare Subsequent (G0439) Diagnoses Depression, major, in remission F32.5 GERD (gastroesophageal reflux disease) K21.9 Type 2 diabetes mellitus without complication, with no history of insulin use E11.9 Dyslipidemia E78.5 RLS (restless legs syndrome) G25.81 Osteopenia M85.80 Osteopenia location: hip Irritable bowel syndrome with constipation K58.1 Encounter for subsequent annual wellness visit (AWV) in Medicare patient Z00.00 CPT Codes Advance Care Planning - Time spent: 16-45 minutes ([id number]) Advance Care Planning Advance Care Planning discussion: Completed/Scanned Date of discussion: 01/28/23 Who was present: patient Forms completed: Health Care Proxy Time spent: 16-45 minutes Actual minutes spent: 16
[2023-01-28 13:05] VITALS: BP 130/76; PULSE 83; O2SAT 96; BMI 29.1
== END 2023-01-28 13:48 | disposition home or self-care (01) ==
PROVIDERS: Visit Provider Internal Medicine
DX: F32.5 Major depressive disorder, single episode, in full remission (principal); K21.9 Gastro-esophageal reflux disease without esophagitis; E11.9 Type 2 diabetes mellitus without complications; E78.5 Hyperlipidemia, unspecified; G25.81 Restless legs syndrome; M85.80 Other specified disorders of bone density and structure, unspecified site; K58.1 Irritable bowel syndrome with constipation; Z00.00 Encounter for general adult medical examination without abnormal findings
CPT/HCPCS: 99497; G0439

== ENCOUNTER 2023-02-27 13:01 | Outpatient (AMB) | payer OTHER, SELFPAY ==
--- NOTE | 2023-02-27 13:25 | AM.OFFWIN_ITS ---
Intake Vital Signs 02/27/23 13:27 Weight 67.132 kg BP 110/70 Blood Pressure Location Lt brachial Position Sitting Pulse 69 Pulse Source Pulse Oximeter Pulse Oximetry (%) 97 Oxygen Delivery Method Room Air Intake Visit Reasons: EP pain RT shoulder radiates down RT side Intake Note: Patient here right shoulder pain that radiates down to the side, she states its been painful for about 1 week. she has tried multiple OTC meds but nothing helps. Patient Tobacco Use Status: Never used Tobacco Allergies metronidazole [Flagyl] Allergy (Unknown, Verified 02/27/23 13:27) unknown Penicillins Allergy (Verified 02/27/23 13:27) Rash egg Allergy (Unknown, Uncoded 02/27/23 13:27) GI upset Codeine Sulfate Adverse Reaction (Unknown, Uncoded 02/27/23 13:27) palpitation Do you need a note to return to daycare/school/sports/work: No HPI HPI Comments History of Present Illness Details 1335 67-year-old female presents with atrauma tic right-sided upper back pain that radiates into right upper extremity, patient reports this started after waking from her sleep 1 morning she may have slept on it wrong. Pain is worse with movement better at rest reports muscle soreness/tightness. Denies numbness, tingling, fevers, chills, chest pain, shortness of breath, headache, vision changes, dizziness, upper extremity clumsiness Physical examination with tenderness to palpation to right-sided cervical paraspinous muscles, right-sided trapezius muscle, discomfort with range of motion of right upper extremity secondary to muscle tightness however she does have full range of motion just uncomfortable. No overlying skin changes. No wrist drop bilaterally. Normal hand assistant signal maintainer. 2+ radial pulses. Normal sensation distally. Likely trapezius or cervical muscle spasm. Unlikely cauda equina, cord compression, cervical myelopathy, arterial or venous occlusion, ACS. Plan prednisone, cyclobenzaprine, naproxen. Educated patient on diagnosis and treatment plan, answered all question, patient verbalizes understanding. At this time patient will be discharged home, advised to return with new or worsening symptoms. Educated on worrisome signs and symptoms and when to return. At this time I feel comfortable discharge home. [facility] Medical History Irritable bowel syndrome with constipation Depression, major, in remission Blurred vision, right eye Tubular adenoma of colon Type 2 diabetes mellitus without complication, with no history of insulin use Heartburn Hirsutism RLS (restless legs syndrome) Osteopenia Dyslipidemia Arthritis Hiatal hernia GERD (gastroesophageal reflux disease) Surgical History History of pterygium excision History of ear surgery History of carpal tunnel release Hx of hysterectomy History of esophagogastroduodenoscopy (EGD) Hx of colonoscopy Family History Mother Mental health disorder Social History Housing: House Alcohol intake: current Alcohol intake frequency: holidays/special occasions only Patient Tobacco Use Status: Never used Tobacco e-Cigarette/Vaping Use: Never Used Second Hand Smoke Exposure: No service: No Current occupational status: unemployed Cognitive needs: No Hearing needs: No Vision needs: Yes Review of Systems Const Details: Constitutional : No Weight loss, No Fever, No Chills, No Fatigue, No Malaise ENT/Mouth : No sore throat, No Rhinorrhea Eyes: No Eye Pain, No Swelling, No Redness Cardiovascular : No Chest Pain, No SOB, No Dyspnea on Exertion, No Orthopnea, No Edema, No Palpitations Respiratory : No Cough, No Sputum, No Wheezing Gastrointestinal : No Nausea, No Vomiting, No Diarrhea, No Constipation, No abdominal Pain, No Hematochezia, No Melena Genitourinary : No Dysuria, No Urinary Frequency, No Hematuria, Musculoskeletal : + joint pain, No Myalgias, No Joint Swelling Skin : No Skin Lesions, No rash Neuro : No Weakness, No Numbness, No Dizziness, No Headache Psych : No Anxiety/Panic, No Depression All other systems reviewed and are negative All systems reviewed & are unremarkable except as noted in HPI and below Physical Exam Vital Signs: Last Vital Signs Pulse 69 02/27/23 13:27 BP 110/70 02/27/23 13:27 Pulse Ox 97 02/27/23 13:27 Oxygen Delivery Method Room Air 02/27/23 13:27 vss Appearance: Alert.? Oriented X3.? No acute distress.? Head: Normocephalic, atraumatic, no step-offs or deformities Eyes: Pupils equal, round and reactive to light.? Neck: Normal inspection.? Neck supple.? No meningeal signs full range of motion. CVS: Normal heart rate and rhythm.? Pulses normal.? Respiratory: No respiratory distress.? Breath sounds normal.? Abdomen: Soft and nontender.? Skin: Skin warm and dry.? Normal skin color.? Normal skin turgor.? Extremities: No lower extremity edema.? No calf ttp. 5/5 strength to bilateral upper and lower extremities tenderness to palpation to right-sided cervical paraspinous muscles, right-sided trapezius muscle, discomfort with range of motion of right upper extremity secondary to muscle tightness however she does have full range of motion just uncomfortable. No overlying skin changes. No wrist drop bilaterally. Normal hand assistant signal maintainer. 2+ radial pulses. Normal sensation distally. Back: No midline tenderness, no C-spine tenderness, full range of motion, no CVA tenderness bilaterally Neuro: Oriented X 3.? No motor deficit.? No sensory deficit. CN 2-12 intact Assessment & Plan Assessment & Plan (1) Trapezius muscle spasm: Code(s): M62.838 - Other muscle spasm (2) Right shoulder pain: Code(s): M25.511 - Pain in right shoulder Plan Take your medications as prescribed. If you were prescribed antibiotics today, it is important that you take your medication to their entirety, do not skip any doses, do not finish them early. Follow-up with your primary care provider this week. Return to the emergency department with new or worsening symptoms. Such as fevers, chills, chest pain, shortness of breath, nausea, vomiting, dizziness, headache, vision changes, lethargy In case of emergency call 911 Medications: New cyclobenzaprine 10 mg PO BEDTIME PRN 14 tabs 0RF muscle spasm prednisone 20 mg PO DAILY 5 tabs 0RF 5 days lidocaine 4% (AsperFlex (lidocaine)) 1 patch topical DAILY PRN 15 ea 0RF pain naproxen 500 mg PO BID PRN 14 tabs 0RF pain Coding Level of Care Code Est Pt Level 3 (20813) Diagnoses Trapezius muscle spasm M62.838 Right shoulder pain M25.511
[2023-02-27 13:27] VITALS: BP 110/70; PULSE 69; O2SAT 97
== END 2023-02-27 13:54 | disposition home or self-care (01) ==
PROVIDERS: PCP Internal Medicine; Visit Provider Physician Assistant
DX: M62.838 Other muscle spasm (principal); M25.511 Pain in right shoulder
CPT/HCPCS: 99213

== ENCOUNTER 2023-07-02 11:04 | Outpatient (REF) | payer OTHER, SELFPAY ==
[2023-07-02 15:27] LABS: Estimated Average Glucose 140 mg/dL; Hemoglobin A1c % 6.5 % (<6.0)
[2023-07-02 16:35] LABS: Creatinine Urine 247.71 mg/dL; Microalbum/Creatinine Ratio Ur 6.8 ug/mg cr (<30)
[2023-07-02 17:22] LABS: Alanine Aminotransferase 20 U/L (0-31); Anion Gap 9 (12-20); Aspartate Amino Transferase 23 U/L (5-31); Blood Urea Nitrogen 10 mg/dL (9-16); Calcium 9.1 mg/dL (8.4-10.2); Carbon Dioxide 29 mmol/L (22-29); Chloride 107 mmol/L (96-108); Cholesterol 225 mg/dL (<200); Estimated Glomerular Filt Rate > 60; Glucose Fasting 121 mg/dL (60-99); HDL Cholesterol 48 mg/dL (>40); LDL Cholesterol Calculated 139 mg/dL (<100); Potassium 3.9 mmol/L (3.3-5.1); Sodium 141 mmol/L (135-145); Triglycerides 194 mg/dL (<150); Vitamin D 25-OH Total 35.3 ng/mL (>30)
== END 2023-07-02 11:05 | disposition home or self-care (01) ==
LOC: HO.HMGCLDS 11:04
PROVIDERS: PCP Internal Medicine; Visit Provider Internal Medicine
DX: K58.1 Irritable bowel syndrome with constipation (principal); E11.9 Type 2 diabetes mellitus without complications; M85.80 Other specified disorders of bone density and structure, unspecified site; E78.5 Hyperlipidemia, unspecified; G25.81 Restless legs syndrome
CPT/HCPCS: 36415; 80048; 80061; 82043; 82306; 82570; 83036; 84450; 84460

== ENCOUNTER 2023-07-05 10:16 | Outpatient (AMB) | payer OTHER, SELFPAY ==
[2023-07-05 10:23] VITALS: BP 104/70; PULSE 62; O2SAT 95; BMI 29.9
--- NOTE | 2023-07-05 10:23 | A.OFFPC_ITS ---
Vital Signs 07/05/23 10:23 Height 5 ft Weight 153 lb BMI 29.9 BP 104/70 Blood Pressure Location Lt brachial Position Sitting Pulse 62 Pulse Source Pulse Oximeter Pulse Oximetry (%) 95 Oxygen Delivery Method Room Air Intake Visit Reasons: 4 month fu- see comments Intake Note: Pt is here today for her 4 months f/u Allergies metronidazole [Flagyl] Allergy (Unknown, Verified 07/05/23 23:36) unknown Penicillins Allergy (Verified 07/05/23 23:36) Rash egg Allergy (Unknown, Uncoded 07/05/23 23:36) GI upset Codeine Sulfate Adverse Reaction (Unknown, Uncoded 07/05/23 23:36) palpitation Medication List - Last Reconciled 07/05/23 by Argelia Salas MD dicyclomine 20 mg PO BID docusate sodium (DOK) 100 mg PO DAILY lorazepam 0.5 mg PO ONCE PRN omeprazole 40 mg PO DAILY ropinirole 1 mg PO DAILY rosuvastatin 5 mg PO DAILY 90 days spironolactone 50 mg PO DAILY Tobacco use date assessed: 07/05/23 Fall risk assessment: No Falls in past year Last assessed Fall Risk: 07/05/23 Dental Screening Dental Screen Date: 07/05/23 Did you have a dental visit in the last 12 months?: No Was dental information given to patient?: Patient declined HPI 4 month fu- see comments HPI Details 67-year-old lady here today for follow-u p on her hyperlipidemia, diabetes mellitus and osteopenia. She has been adhering to healthy eating habits and getting regular exercise, with diabetes mellitus controlled without medications. Last hemoglobin A1c is at 6.5%, but recent fasting lipids showed triglycerides and LDL cholesterol is not at goal. Blood pressure however is within normal limits. She has been compliant with taking her medications, but admits to not getting any regular exercise these past few months.. [facility] Medical History Irritable bowel syndrome with constipation Depression, major, in remission Blurred vision, right eye Tubular adenoma of colon Type 2 diabetes mellitus without complication, with no history of insulin use Heartburn Hirsutism RLS (restless legs syndrome) Osteopenia Dyslipidemia Arthritis Hiatal hernia GERD (gastroesophageal reflux disease) Surgical History History of pterygium excision History of ear surgery History of carpal tunnel release Hx of hysterectomy History of esophagogastroduodenoscopy (EGD) Hx of colonoscopy Family History Mother Mental health disorder Social History Housing: House Alcohol intake: current Alcohol intake frequency: holidays/special occasions only Patient Tobacco Use Status: Never used Tobacco e-Cigarette/Vaping Use: Never Used Second Hand Smoke Exposure: No service: No Current occupational status: unemployed Cognitive needs: No Hearing needs: No Vision needs: Yes Questionnaire PHQ-9 Over the last 2 weeks, how often have you been bothered by any of the following problems? 1. Little interest or pleasure in doing things: not at all 2. Feeling down, depressed, or hopeless: not at all 3. Trouble falling or staying asleep, or sleeping too much: not at all 4. Feeling tired or having little energy: not at all 5. Poor appetite or overeating: not at all 6. Feeling bad about yourself - or that you are a failure or have let yourself or your family down: not at all 7. Trouble concentrating on things, such as reading the newspaper or watching television: not at all 8. Moving or speaking so slowly that other people could have noticed. Or the opposite - being so fidgety or restless that you have been moving around a lot more than usual: not at all 9. Thoughts that you would be better off or of hurting yourself in some way: not at all Total score: 0 Depression Screening Interpretation: Negative Depression Screening Done: Yes 23587 - PHQ-9 Billing: Yes Source: Developed by Drs. Prem Palacios, Radha Arambula, Cody Rousseau and colleagues, with an educational cameron from [employer]. Thrive Questionnaire Date Thrive assessed: 07/05/23 I am a: Patient What is your living situation today?: I have a steady place to live Within the past 12 months, did the food you bought not last and you didn't have the money to get more?: Never true Within the past 12 months, did you worry whether your food would run out before you got money to buy more?: Never true Do you have trouble paying for medicines?: No Do you have trouble getting transportation to medical appointments?: No Do you have trouble paying your heating and electricity bill?: No Do you have trouble taking care of your child, family member or friend?: No Do you have trouble with day-to-day activities such as bathing, preparing meals, shopping, managing finances, etc.?: No Are you currently unemployed and looking for a job?: No Are you interested in more education?: No THRIVE Score: 0 AUDIT C Alcohol Use Questionnaire (AUDIT-C) 1. How often do you have a drink containing alcohol?: Never Total Score: 0 FUNMILAYO-7 AMB Questionnaire FUNMILAYO-7 Date FUNMILAYO - 7 assessed: 07/05/23 Feeling nervous, anxious, or on edge: 0 = Not at all Not being able to stop or control worryin = Not at all Worrying too much about different things: 0 = Not at all Trouble relaxin = Not at all Being so restless that it is hard to sit still: 0 = Not at all Becoming easily annoyed or irritable: 0 = Not at all Feeling afraid as if something awful might happen: 0 = Not at all Total FUNMILAYO-7 score (0-4 normal; 5-9 mild; 10-14 moderate; 15-21 severe): 0 Source: Developed by Drs. Prem Palacios, Radha Arambula, Cody Rousseau and colleagues, with an educational cameron from [employer]. FUNMILAYO-7 Assessment Billing FUNMILAYO-7 Assessment Tool: FUNMILAYO-7 Assessment 02079 Review of Systems Const Denies chills, Denies fever(s), Denies headache(s) and Denies malaise Eyes Details: sees Dr Enrique Curtis q 6 months ENT Denies dizziness, Denies headache(s) and Denies nasal congestion Card Reports no additional complaints Resp Reports no additional complaints GI Denies abdominal pain, Denies melena, Denies bloating, Denies change in bowel habits and Denies heartburn Reports no additional complaints Musc Reports no additional complaints Skin/Breast Denies breast pain and Denies breast mass Neuro Denies dizziness and Denies headache(s) Psych Reports no additional complaints Endo Reports no additional complaints Ruben/Lymph Reports no additional complaints Aller/Immun Reports no additional complaints Physical exam (Primary Care) Vital Signs: Last Vital Signs Pulse 62 07/05/23 10:23 BP 104/70 07/05/23 10:23 Pulse Ox 95 07/05/23 10:23 Oxygen Delivery Method Room Air 07/05/23 10:23 BMI result Body Mass Index 29.9 Tobacco/Smoking Status: Tobacco use Status Tobacco use date assessed 07/05/23 07/05/23 10:25 Patient Tobacco Use Status Never used Tobacco 07/05/23 10:25 e-Cigarette/Vaping Use Never Used 07/05/23 10:25 PHQ-9: PHQ-9 Score PHQ-9: Total score 0 07/05/23 23:37 Depression Screening Interpretation: Negative Thrive Assessment: Date of Thrive Assessment Date Thrive assessed 07/05/23 07/05/23 10:32 Advance Care Planning discussion: Completed/Scanned Date of discussion: 07/05/23 Who was present: Patient Forms completed: Health Care Proxy and MOLST (Copy Already in patient's medical record) Time spent: 16-45 minutes Actual minutes spent: 16 Const Other: Alert oriented x3, no acute distress noted, ambulatory normal gait Orientation/consciousness: patient oriented x3 Eyes General: appearance normal, both eyes and all related structures Neck Neck: Yes full ROM, Yes no lymphadenopathy and Yes supple Resp Auscultation: clear to auscultation bilaterally Cardio Other: S1-S2 present regular rate and rhythm GI Palpation (GI): Soft to palpation, nontender, no guarding and no masses Auscultation: normal bowel sounds General: Yes no CVA tenderness Back/Spine/Pelvis Back: no CVA tenderness and No back tenderness Neuro General: patient oriented x3, gait normal, tone normal, moves all extremities and no focal motor deficits Extrem General: Yes full ROM, Yes no joint enlargement, Yes no clubbing, cyanosis or edema, Yes no pedal edema, Yes no calf tenderness and Yes normal gait Results Reviewed Results Reviewed: Name: Martha Lopez Age/Sex: 67/F : 1955 Unit#: [id number] Attend Dr: Argelia Salas MD Re07/02/23 Status: DEP [facility] Disch: SPEC : [id number] PETRA: 07/02/23-1107 STATUS: COMP REQ : [id number] RECD: 07/02/23-[address]: Argelia Salas MD COMP: 07/02/23-1721 ENTERED: 07/02/23-[address]: ORDERED: Met Prof Fast, AST, ALT, Lipid Panel, Vitamin D 25-OH Test Result Flag Reference Sodium 141 135-145 mmol/L Potassium 3.9 3.3-5.1 mmol/L CL 107 96-108 mmol/L CO2 29 22-29 mmol/L Gap 9 L 12-20 BUN 10 9-16 mg/dL Creat 0.77 0.5-1.4 mg/dL EGFR > 60 NOTE: For -Indian individuals, multiply the result by 1.210. Chronic Kidney Disease: Estimated GFR < 60 mL/min/1.73m2 Severe Kidney Disease: Estimated GFR < 15 mL/min/1.73m2 FBS 121 H 60-99 mg/dL A fasting glucose from 100-125 mg/dl is considered impaired (pre-diabetes). CA 9.1 8.4-10.2 mg/dL AST (GOT) 23 5-31 U/L ALT (GPT) 20 0-31 U/L Triglyceride 194 H <150 mg/dL Desirable Triglyceride: less than 150 mg/dL Borderline High Triglyceride 150-199 mg/dL High Triglyceride: 200-499 mg/dL Very High Triglyceride: greater than or equal to 5OO mg/dL Cholesterol 225 H <200 mg/dL Desirable Cholesterol: less than 200 mg/dL Borderline High Cholesterol: 200-239 mg/dL High Cholesterol: greater than 239 mg/dL LDL Calculated 139 H <100 mg/dL Desirable LDL: less than 100 mg/dL Near Optimal/Above Optimal LDL: 110-129 mg/dL Borderline High LDL: 130-159 mg/dL High LDL: 160-189 mg/dL Very High LDL: greater than or equal to 190 mg/dL HDL 48 >40 mg/dL Desirable HDL: greater than 40 mg/dL Note: This HDL assay may give artificially low results in patients with liver disease. Vit D 25-OH Tot 35.3 >30 ng/mL Health Based Reference Values* < 20 ng/mL Deficient 20-30 ng/mL Insufficient > 30 ng/mL Sufficient Laboratory Tests 07/02/23 07/02/23 11:08 11:15 Estimat Average Glucose 140 Hemoglobin A1c % 6.5 H Urine Creatinine 247.71 Urine Microalbumin 17.0 Microalb/Creat Ratio 6.8 Assessment and Plan Assessment & Plan (1) Type 2 diabetes mellitus without complication, with no history of insulin use: Code(s): E11.9 - Type 2 diabetes mellitus without complications Plan: Diabetes mellitus stable and well controlled with diet and exercise. Latest hemoglobin A1c is 6.5%. Sees Dr. Enrique Curtis for her diabetes retinopathy screening, up-to-date with her pneumococcal vaccination, and Tdap, only received the initial COVID vaccine was not does not want to get the booster, does not get flu vaccine as she is allergic to eggs peer reminded to get her shingles vaccine given at the pharmacy (2) Dyslipidemia: Code(s): E78.5 - Hyperlipidemia, unspecified Plan: Fasting lipid panel done showed elevated triglycerides and LDL cholesterol. Continue taking rosuvastatin 5 mg once a day, and reinforced importance of following low-cholesterol diet and getting regular exercise. (3) Osteopenia: Code(s): M85.80 - Other specified disorders of bone density and structure, unspecified site Qualifiers: Laterality: left Osteopenia location: hip Qualified Code(s): M85.852 - Other specified disorders of bone density and structure, left thigh Plan: Repeat bone density scan ordered, patient wants it done together with her next scheduled mammogram. Reinforced importance of doing regular weight-bearing exercise, continue taking adequate calcium from dietary sources and take vitamin-D 3 supplements at least 2000 units daily Orders: Orders XR DEXA axial skeleton Today M85.80 - Other specified disorders of bone density and structure, unspecified site, Z78.0 - Asymptomatic menopausal state Hemoglobin A1c 09/13/23 E11.9 - Type 2 diabetes mellitus without complications, E78.5 - Hyperlipidemia, unspecified, M85.80 - Other specified disorders of bone density and structure, unspecified site Alanine Aminotransferase 09/13/23 E11.9 - Type 2 diabetes mellitus without complications, E78.5 - Hyperlipidemia, unspecified, M85.80 - Other specified disorders of bone density and structure, unspecified site Basic Metabolic Panel Fasting 09/13/23 E11.9 - Type 2 diabetes mellitus without complications, E78.5 - Hyperlipidemia, unspecified, M85.80 - Other specified disorders of bone density and structure, unspecified site Vitamin D 25-OH Total 09/20/23 M85.80 - Other specified disorders of bone density and structure, unspecified site, Z78.0 - Asymptomatic menopausal state Aspartate Amino Transferase 09/13/23 E11.9 - Type 2 diabetes mellitus without complications, E78.5 - Hyperlipidemia, unspecified, M85.80 - Other specified disorders of bone density and structure, unspecified site Lipid Panel 09/13/23 E11.9 - Type 2 diabetes mellitus without complications, E78.5 - Hyperlipidemia, unspecified, M85.80 - Other specified disorders of bone density and structure, unspecified site Coding Level of Care Code Est Pt Level 4 (62637) Diagnoses Type 2 diabetes mellitus without complication, with no history of insulin use E11.9 Dyslipidemia E78.5 Osteopenia of left hip M85.852 Laterality: left Osteopenia location: hip Additional Codes FUNMILAYO-7 Assessment Billing - FUNMILAYO-7 Assessment Tool: FUNMILAYO-7 Assessment 91656 ([id number]) Vital Signs *Quality* - Advance Care Planning discussion: Completed/Scanned ([id number]) Vital Signs *Quality* - Time spent: 16-45 minutes ([id number])
== END 2023-07-05 11:24 | disposition home or self-care (01) ==
LOC: HO.HMGC 10:16
PROVIDERS: PCP Internal Medicine; Visit Provider Internal Medicine
DX: E11.9 Type 2 diabetes mellitus without complications (principal); E78.5 Hyperlipidemia, unspecified; M85.852 Other specified disorders of bone density and structure, left thigh; Z00.00 Encounter for general adult medical examination without abnormal findings
CPT/HCPCS: 1123F; 99214; 99497

== ENCOUNTER 2023-10-02 09:06 | Outpatient (REF) | payer OTHER, SELFPAY ==
[2023-10-02 11:54] LABS: Alanine Aminotransferase 17 U/L (0-31); Anion Gap 13 (12-20); Aspartate Amino Transferase 22 U/L (5-31); Blood Urea Nitrogen 10 mg/dL (9-16); Calcium 9.4 mg/dL (8.4-10.2); Carbon Dioxide 24 mmol/L (22-29); Chloride 108 mmol/L (96-108); Cholesterol 202 mg/dL (<200); Estimated Glomerular Filt Rate > 60; Glucose Fasting 127 mg/dL (60-99); HDL Cholesterol 48 mg/dL (>40); LDL Cholesterol Calculated 132 mg/dL (<100); Potassium 4.3 mmol/L (3.3-5.1); Sodium 141 mmol/L (135-145); Triglycerides 110 mg/dL (<150)
[2023-10-02 11:55] LABS: Estimated Average Glucose 128 mg/dL; Hemoglobin A1c % 6.1 % (<6.0)
[2023-10-02 12:11] LABS: Vitamin D 25-OH Total 44.1 ng/mL (>30)
== END 2023-10-02 09:07 | disposition home or self-care (01) ==
LOC: HO.HMGCLDS 09:06
PROVIDERS: PCP Internal Medicine; Visit Provider Internal Medicine
DX: M85.80 Other specified disorders of bone density and structure, unspecified site (principal); E11.9 Type 2 diabetes mellitus without complications; E78.5 Hyperlipidemia, unspecified; Z78.0 Asymptomatic menopausal state
CPT/HCPCS: 36415; 80048; 80061; 82306; 83036; 84450; 84460

== ENCOUNTER 2023-10-06 10:08 | Outpatient (AMB) | payer OTHER, SELFPAY ==
[2023-10-06 10:59] VITALS: BP 122/76; PULSE 63; O2SAT 96; BMI 28.5
--- NOTE | 2023-10-06 10:59 | MHC.PC.OV ---
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 Accompanied by: Self / Same As Patient Allergies metronidazole [Flagyl] Allergy (Unknown, Verified 10/11/23 02:53) unknown Penicillins Allergy (Verified 10/11/23 02:53) Rash egg Allergy (Unknown, Uncoded 10/11/23 02:53) GI upset Codeine Sulfate Adverse Reaction (Unknown, Uncoded 10/11/23 02:53) palpitation Medication List - Last Reconciled 10/11/23 by Argelia Salas MD dicyclomine 20 mg PO BID docusate sodium (DOK) 100 mg PO DAILY lorazepam 0.5 mg PO ONCE PRN omeprazole 40 mg PO DAILY ropinirole 1 mg PO DAILY rosuvastatin 5 mg PO DAILY 90 days spironolactone 50 mg PO DAILY Tobacco use date assessed: 07/05/23 Fall risk assessment: No Falls in past year Last assessed Fall Risk: 10/06/23 Dental Screening Dental Screen Date: 07/05/23 Did you have a dental visit in the last 12 months?: No Did you have a dental problem in the last 6 months where you did not have access to dental care?: No Was dental information given to patient?: Patient declined HPI 3 month follow up HPI Details 67-year-old lady here today for follow-up on her diabetes mellitus and hyperlipidemia . . Has been compliant with her medications and adherence to recommended diabetic diet, stays active. No new complaints at present time. [facility] Medical History Irritable bowel syndrome with constipation Depression, major, in remission Blurred vision, right eye Tubular adenoma of colon Type 2 diabetes mellitus without complication, with no history of insulin use Heartburn Hirsutism RLS (restless legs syndrome) Osteopenia Dyslipidemia Arthritis Hiatal hernia GERD (gastroesophageal reflux disease) Surgical History History of pterygium excision History of ear surgery History of carpal tunnel release Hx of hysterectomy History of esophagogastroduodenoscopy (EGD) Hx of colonoscopy Family History Mother Mental health disorder Social History Housing: House Alcohol intake: current Alcohol intake frequency: holidays/special occasions only Patient Tobacco Use Status: Never used Tobacco e-Cigarette/Vaping Use: Never Used Second Hand Smoke Exposure: No service: No Current occupational status: unemployed Cognitive needs: No Hearing needs: No Vision needs: Yes Questionnaire PHQ-9 Over the last 2 weeks, how often have you been bothered by any of the following problems? 1. Little interest or pleasure in doing things: not at all 2. Feeling down, depressed, or hopeless: not at all 3. Trouble falling or staying asleep, or sleeping too much: not at all 4. Feeling tired or having little energy: not at all 5. Poor appetite or overeating: not at all 6. Feeling bad about yourself - or that you are a failure or have let yourself or your family down: not at all 7. Trouble concentrating on things, such as reading the newspaper or watching television: not at all 8. Moving or speaking so slowly that other people could have noticed. Or the opposite - being so fidgety or restless that you have been moving around a lot more than usual: not at all 9. Thoughts that you would be better off or of hurting yourself in some way: not at all Total score: 0 Depression Screening Interpretation: Negative Depression Screening Done: Yes 84216 - PHQ-9 Billing: Yes Source: Developed by Drs. Prem Palacios, Radha Arambula, Cody Rousseau and colleagues, with an educational cameron from [employer]. Thrive Questionnaire Date Thrive assessed: 10/05/23 I am a: Patient What is your living situation today?: I have a steady place to live Within the past 12 months, did the food you bought not last and you didn't have the money to get more?: I choose not to answer this question Within the past 12 months, did you worry whether your food would run out before you got money to buy more?: I choose not to answer this question Do you have trouble paying for medicines?: I choose not to answer this question Do you have trouble getting transportation to medical appointments?: No Do you have trouble paying your heating and electricity bill?: I choose not to answer this question Do you have trouble taking care of your child, family member or friend?: I choose not to answer this question Do you have trouble with day-to-day activities such as bathing, preparing meals, shopping, managing finances, etc.?: No Are you currently unemployed and looking for a job?: I choose not to answer this question Are you interested in more education?: I choose not to answer this question Please select the resources that you would like help with: Housing/Long-Term Currently or been in a relationship where the following occur: I choose not to answer THRIVE Score: 0 AUDIT C Alcohol Use Questionnaire (AUDIT-C) 1. How often do you have a drink containing alcohol?: Never Total Score: 0 FUNMILAYO-7 AMB Questionnaire FUNMILAYO-7 Date FUNMILAYO - 7 assessed: 07/05/23 Feeling nervous, anxious, or on edge: 0 = Not at all Not being able to stop or control worryin = Not at all Worrying too much about different things: 0 = Not at all Trouble relaxin = Not at all Being so restless that it is hard to sit still: 0 = Not at all Becoming easily annoyed or irritable: 0 = Not at all Feeling afraid as if something awful might happen: 0 = Not at all Total FUNMILAYO-7 score (0-4 normal; 5-9 mild; 10-14 moderate; 15-21 severe): 0 Source: Developed by Drs. Prem Palacios, Radha Arambula, Cody Rousseau and colleagues, with an educational cameron from [employer]. FUNMILAYO-7 Assessment Billing FUNMILAYO-7 Assessment Tool: FUNMILAYO-7 Assessment 28074 Review of Systems Const Denies chills, Denies fever(s), Denies headache(s) and Denies malaise Eyes Details: Sees Dr. Curtis every 6 months ENT Denies dizziness, Denies headache(s) and Denies nasal congestion Card Reports no additional complaints Resp Reports no additional complaints GI Denies abdominal pain, Denies melena, Denies bloating, Denies change in bowel habits and Denies heartburn Reports no additional complaints Musc Reports no additional complaints Skin/Breast Denies breast pain and Denies breast mass Neuro Denies dizziness and Denies headache(s) Psych Reports no additional complaints Endo Reports no additional complaints Ruben/Lymph Reports no additional complaints Aller/Immun Reports no additional complaints Physical exam (Primary Care) Vital Signs: Last Vital Signs Pulse 63 10/06/23 10:59 BP 122/76 10/06/23 10:59 Pulse Ox 96 10/06/23 10:59 Oxygen Delivery Method Room Air 10/06/23 10:59 BMI result Body Mass Index 28.5 Tobacco/Smoking Status: Tobacco use Status Tobacco use date assessed 07/05/23 10/06/23 11:00 Patient Tobacco Use Status Never used Tobacco 10/06/23 11:00 e-Cigarette/Vaping Use Never Used 10/06/23 11:00 PHQ-9: PHQ-9 Score PHQ-9: Total score 0 10/06/23 11:23 Depression Screening Interpretation: Negative Thrive Assessment: Date of Thrive Assessment Date Thrive assessed 10/05/23 10/06/23 11:00 Currently or been in a relationship where the following occur: I choose not to answer Const Other: Alert oriented x3, no acute distress noted, ambulatory normal gait Orientation/consciousness: patient oriented x3 HENNV Ears: hearing grossly normal bilaterally and external ears normal General nose exam: Normal external nose present Face and sinus: Yes face symmetric Mouth: Normal oral and palatal mucosa present and moist mucous membranes Eyes General: appearance normal, both eyes and all related structures Neck Neck: Yes full ROM, Yes no lymphadenopathy and Yes supple Resp Auscultation: clear to auscultation bilaterally Cardio Other: S1-S2 present regular rate and rhythm GI Palpation (GI): Soft to palpation, nontender, no guarding and no masses Auscultation: normal bowel sounds General: Yes no CVA tenderness Back/Spine/Pelvis Back: no CVA tenderness and No back tenderness Neuro General: patient oriented x3, gait normal, tone normal, moves all extremities and no focal motor deficits Extrem General: Yes full ROM, Yes no joint enlargement, Yes no clubbing, cyanosis or edema, Yes no pedal edema, Yes no calf tenderness and Yes normal gait Results Reviewed Results Reviewed: Laboratory Tests 07/02/23 10/02/23 11:15 09:42 Estimat Average Glucose 128 Hemoglobin A1c % 6.1 H Urine Creatinine 247.71 Urine Microalbumin 17.0 Microalb/Creat Ratio 6.8 Name: Martha Lopez Age/Sex: 67/F : 1955 Unit#: [id number] Attend Dr: Argelia Salas MD Re10/02/23 Status: DEP REF Location: [facility] Disch: SPEC : [id number] PETRA: 10/02/23 STATUS: COMP REQ : [id number] RECD: 10/02/[address]: Argelia Salas MD COMP: 10/02/23 ENTERED: 10/02/[address] [facility] [address]: ORDERED: Met Prof Fast, AST, ALT, Lipid Panel, Vitamin D 25-OH Test Result Flag Reference Sodium 141 135-145 mmol/L Potassium 4.3 3.3-5.1 mmol/L CL 108 96-108 mmol/L CO2 24 22-29 mmol/L Gap 13 12-20 BUN 10 9-16 mg/dL Creat 0.82 0.5-1.4 mg/dL EGFR > 60 NOTE: For -British individuals, multiply the result by 1.210. Chronic Kidney Disease: Estimated GFR < 60 mL/min/1.73m2 Severe Kidney Disease: Estimated GFR < 15 mL/min/1.73m2 FBS 127 H 60-99 mg/dL A fasting glucose of 126 mg/dl or greater on more than one occasion is considered diagnostic of diabetes. CA 9.4 8.4-10.2 mg/dL AST (GOT) 22 5-31 U/L ALT (GPT) 17 0-31 U/L Triglyceride 110 <150 mg/dL Desirable Triglyceride: less than 150 mg/dL Borderline High Triglyceride 150-199 mg/dL High Triglyceride: 200-499 mg/dL Very High Triglyceride: greater than or equal to 5OO mg/dL Cholesterol 202 H <200 mg/dL Desirable Cholesterol: less than 200 mg/dL Borderline High Cholesterol: 200-239 mg/dL High Cholesterol: greater than 239 mg/dL LDL Calculated 132 H <100 mg/dL Desirable LDL: less than 100 mg/dL Near Optimal/Above Optimal LDL: 110-129 mg/dL Borderline High LDL: 130-159 mg/dL High LDL: 160-189 mg/dL Very High LDL: greater than or equal to 190 mg/dL HDL 48 >40 mg/dL Desirable HDL: greater than 40 mg/dL Note: This HDL assay may give artificially low results in patients with liver disease. Vit D 25-OH Tot 44.1 >30 ng/mL Health Based Reference Values* < 20 ng/mL Deficient 20-30 ng/mL Insufficient > 30 ng/mL Sufficient Assessment and Plan Assessment & Plan (1) Type 2 diabetes mellitus without complication, with no history of insulin use: Code(s): E11.9 - Type 2 diabetes mellitus without complications Plan: Diabetes mellitus controlled with diet and exercise with hemoglobin A1c at 6.1% . Currently up-to-date with diabetes retinopathy screening, sees Dr. Curtis (2) Dyslipidemia: Code(s): E78.5 - Hyperlipidemia, unspecified Plan: Recent fasting labs showed elevated LDL cholesterol at 132 mg/dL. Continue with rosuvastatin 5 mg daily, in reinforced importance of following a low-cholesterol diet and getting regular exercise. Orders: Orders Hemoglobin A1c 01/22/24 E11.9 - Type 2 diabetes mellitus without complications, E78.5 - Hyperlipidemia, unspecified, M85.852 - Other specified disorders of bone density and structure, left thigh Alanine Aminotransferase 01/22/24 E11.9 - Type 2 diabetes mellitus without complications, E78.5 - Hyperlipidemia, unspecified, M85.852 - Other specified disorders of bone density and structure, left thigh Lipid Panel 01/22/24 E11.9 - Type 2 diabetes mellitus without complications, E78.5 - Hyperlipidemia, unspecified, M85.852 - Other specified disorders of bone density and structure, left thigh Vitamin D 25-OH Total 01/22/24 E11.9 - Type 2 diabetes mellitus without complications, E78.5 - Hyperlipidemia, unspecified, M85.852 - Other specified disorders of bone density and structure, left thigh Aspartate Amino Transferase 01/22/24 E11.9 - Type 2 diabetes mellitus without complications, E78.5 - Hyperlipidemia, unspecified, M85.852 - Other specified disorders of bone density and structure, left thigh Basic Metabolic Panel Fasting 01/22/24 E11.9 - Type 2 diabetes mellitus without complications, E78.5 - Hyperlipidemia, unspecified, M85.852 - Other specified disorders of bone density and structure, left thigh Coding Level of Care Code Est Pt Level 4 (23395) Complex EM visit Add On G2211 Diagnoses Type 2 diabetes mellitus without complication, with no history of insulin use E11.9 Dyslipidemia E78.5 Additional Codes FUNMILAYO-7 Assessment Billing - FUNMILAYO-7 Assessment Tool: FUNMILAYO-7 Assessment 46292 ([id number])
== END 2023-10-06 12:12 | disposition home or self-care (01) ==
PROVIDERS: PCP Internal Medicine; Visit Provider Internal Medicine
DX: E11.9 Type 2 diabetes mellitus without complications (principal); E78.5 Hyperlipidemia, unspecified
CPT/HCPCS: 99214; G2211

== ENCOUNTER 2024-02-01 09:43 | Outpatient (REF) | payer OTHER, SELFPAY ==
[2024-02-01 13:57] LABS: Estimated Average Glucose 131 mg/dL; Hemoglobin A1C 169.6334 umol/L; Hemoglobin A1c % 6.2 % (<6.0); Total Hemoglobin (HGBA1C) 3812.1405 umol/L
[2024-02-01 14:28] LABS: Alanine Aminotransferase 30 U/L (0-31); Anion Gap 13 (12-20); Aspartate Amino Transferase 35 U/L (5-31); Blood Urea Nitrogen 11 mg/dL (9-16); Calcium 9.6 mg/dL (8.4-10.2); Carbon Dioxide 26 mmol/L (22-29); Chloride 106 mmol/L (96-108); Cholesterol 177 mg/dL (<200); Estimated Glomerular Filt Rate > 60; Glucose Fasting 117 mg/dL (60-99); HDL Cholesterol 53 mg/dL (>40); LDL Cholesterol Calculated 104 mg/dL (<100); Potassium 3.9 mmol/L (3.3-5.1); Sodium 141 mmol/L (135-145); Triglycerides 104 mg/dL (<150)
[2024-02-01 14:37] LABS: Vitamin D 25-OH Total 48.6 ng/mL (>30)
== END 2024-02-01 09:44 | disposition home or self-care (01) ==
LOC: HO.HMGCLDS 09:43
PROVIDERS: PCP Internal Medicine; Visit Provider Internal Medicine
DX: E11.9 Type 2 diabetes mellitus without complications (principal); M85.852 Other specified disorders of bone density and structure, left thigh; E78.5 Hyperlipidemia, unspecified
CPT/HCPCS: 36415; 80048; 80061; 82306; 83036; 84450; 84460

== ENCOUNTER 2024-02-08 10:34 | Outpatient (AMB) | payer OTHER, SELFPAY ==
[2024-02-08 11:27] VITALS: BP 118/90; PULSE 62; O2SAT 99; BMI 28.5
--- NOTE | 2024-02-08 11:27 | A.OFFPC_ITS ---
Vital Signs 02/08/24 11:27 Height 5 ft Weight 146 lb BMI 28.5 BP 118/90 H Blood Pressure Location Rt brachial Position Sitting Pulse 62 Pulse Source Pulse Oximeter Pulse Oximetry (%) 99 Oxygen Delivery Method Room Air Intake Visit Reasons: Annual PE Intake Note: Pt is here today for her PE: last mammogram 08/26/23, bone density scan 02/24/19 Allergies metronidazole [Flagyl] Allergy (Unknown, Verified 02/08/24 12:13) unknown Penicillins Allergy (Verified 02/08/24 12:13) Rash egg Allergy (Unknown, Uncoded 02/08/24 12:13) GI upset Codeine Sulfate Adverse Reaction (Unknown, Uncoded 02/08/24 12:13) palpitation Medication List - Last Reconciled 02/08/24 by Argelia Salas MD dicyclomine 20 mg PO BID docusate sodium (DOK) 100 mg PO DAILY lorazepam 0.5 mg PO ONCE PRN omeprazole 40 mg PO DAILY ropinirole 1 mg PO DAILY rosuvastatin 5 mg PO DAILY 90 days spironolactone 50 mg PO DAILY Tobacco use date assessed: 02/08/24 Fall risk assessment: No Falls in past year Last assessed Fall Risk: 02/08/24 Dental Screening Dental Screen Date: 02/08/24 Did you have a dental visit in the last 12 months?: No Did you have a dental problem in the last 6 months where you did not have access to dental care?: No Was dental information given to patient?: No HPI Annual PE HPI Details 68-year-old female with past medical history significant for prediabetes, hyperlipidemia, and osteopenia, here today for her physical exam.. Previous glycemic control measures indicated HbA1c levels at 6.1, which increased slightly to 6.2. She is aware of the potential progression to diabetes if levels reach 6.5. Cholesterol management includes awareness that LDL cholesterol increased to 104 mg/dL, while triglycerides and overall cholesterol levels remain within normal ranges. The patient has osteopenia, particularly noted in the lower back, with a T-score of -1.8 and worsened thinning in her hip. She gets calcium supplementation , though adherence may be inconsistent. Patient reports occasional pain in her elbow, present now for the last 2 weeks worse when sleeping on one side. - Received pneumonia vaccination update. - Mammogram performed; results normal. - Bone density scan showed worsening ost eopenia. - Colonoscopy performed in 2020; next on e scheduled for 2025 due to family history of colon cancer. - RSV vaccine declined; open to consider ing in the future. - Eye and dental care are pending routin e follow-ups. - Completed 3 COVID vaccinations but dec lined any subsequent boosters. - Declined shingles vaccine, despite pas t infection. [facility] Medical History Irritable bowel syndrome with constipation Depression, major, in remission Blurred vision, right eye Tubular adenoma of colon Type 2 diabetes mellitus without complication, with no history of insulin use Heartburn Hirsutism RLS (restless legs syndrome) Osteopenia Dyslipidemia Arthritis Hiatal hernia GERD (gastroesophageal reflux disease) Surgical History History of pterygium excision History of ear surgery History of carpal tunnel release Hx of hysterectomy History of esophagogastroduodenoscopy (EGD) Hx of colonoscopy Family History Mother Mental health disorder Social History Housing: House Alcohol intake: current Alcohol intake frequency: holidays/special occasions only Patient Tobacco Use Status: Never used Tobacco e-Cigarette/Vaping Use: Never Used Second Hand Smoke Exposure: No service: No Current occupational status: unemployed Cognitive needs: No Hearing needs: No Vision needs: Yes Questionnaire Thrive Questionnaire Date Thrive assessed: 02/08/24 I am a: Patient What is your living situation today?: I have a steady place to live Within the past 12 months, did the food you bought not last and you didn't have the money to get more?: I choose not to answer this question Within the past 12 months, did you worry whether your food would run out before you got money to buy more?: I choose not to answer this question Do you have trouble paying for medicines?: I choose not to answer this question Do you have trouble getting transportation to medical appointments?: No Do you have trouble paying your heating and electricity bill?: I choose not to answer this question Do you have trouble taking care of your child, family member or friend?: I choose not to answer this question Do you have trouble with day-to-day activities such as bathing, preparing meals, shopping, managing finances, etc.?: No Are you currently unemployed and looking for a job?: I choose not to answer this question Are you interested in more education?: I choose not to answer this question Please select the resources that you would like help with: None Currently or been in a relationship where the following occur: I choose not to answer THRIVE Score: 0 AUDIT C Alcohol Use Questionnaire (AUDIT-C) 1. How often do you have a drink containing alcohol?: Never Total Score: 0 FUNMILAYO-7 AMB Questionnaire FUNMILAYO-7 Date FUNMILAYO - 7 assessed: 07/05/23 Source: Developed by Drs. Prem Palacios, Radha Arambula, Cody Rousseau and colleagues, with an educational cameron from [employer]. Review of Systems Const Denies chills, Denies fever(s), Denies headache(s) and Denies malaise Eyes Details: Dr Curtis appt 02/22/24 ENT Denies dizziness, Denies headache(s) and Denies nasal congestion Card Reports no additional complaints Resp Reports no additional complaints GI Denies abdominal pain, Denies melena, Denies bloating, Denies change in bowel habits and Denies heartburn Reports no additional complaints Musc Reports no additional complaints Skin/Breast Denies breast pain and Denies breast mass Neuro Denies dizziness and Denies headache(s) Psych Reports no additional complaints Endo Reports no additional complaints Ruben/Lymph Reports no additional complaints Aller/Immun Reports no additional complaints Physical exam (Primary Care) Vital Signs: Last Vital Signs Pulse 62 02/08/24 11:27 BP 118/90 H 02/08/24 11:27 Pulse Ox 99 02/08/24 11:27 Oxygen Delivery Method Room Air 02/08/24 11:27 BMI result Body Mass Index 28.5 Tobacco/Smoking Status: Tobacco use Status Tobacco use date assessed 02/08/24 02/08/24 11:44 Patient Tobacco Use Status Never used Tobacco 02/08/24 11:27 e-Cigarette/Vaping Use Never Used 02/08/24 11:27 Thrive Assessment: Date of Thrive Assessment Date Thrive assessed 02/08/24 02/08/24 11:44 Currently or been in a relationship where the following occur: I choose not to answer Const Other: Alert oriented x3, no acute distress noted, ambulatory normal gait Orientation/consciousness: patient oriented x3 HENMT Ears: hearing grossly normal bilaterally and external ears normal General nose exam: Normal external nose present Face and sinus: Yes face symmetric Mouth: Normal oral and palatal mucosa present and moist mucous membranes Eyes General: appearance normal, both eyes and all related structures Neck Neck: Yes full ROM, Yes no lymphadenopathy and Yes supple Chest Breast/axilla palpation: normal palpation of the breasts Resp Auscultation: clear to auscultation bilaterally Cardio Other: S1-S2 present regular rate and rhythm GI Palpation (GI): Soft to palpation, nontender, no guarding and no masses Auscultation: normal bowel sounds General: Yes no CVA tenderness Back/Spine/Pelvis Back: no CVA tenderness and No back tenderness Skin General skin exam: no rashes or lesions noted Neuro General: patient oriented x3, gait normal, tone normal, moves all extremities and no focal motor deficits Extrem General: Yes full ROM, Yes no joint enlargement, Yes no clubbing, cyanosis or edema, Yes no pedal edema, Yes no calf tenderness and Yes normal gait Psych Appearance: grossly normal and well kempt Mental Status: mental status grossly normal Speech and movement: Normal speech and movement present Affect: normal affect Results Reviewed Results Reviewed: Laboratory Tests 07/02/23 02/01/24 11:15 09:47 Estimat Average Glucose 131 Hemoglobin A1c % 6.2 H Microalb/Creat Ratio 6.8 Name: Martha Quintero Age/Sex: 68/F : 1955 Unit#: [id number] Attend Dr: Argelia Salas MD Re02/01/24 Status: DEP [facility] Disch: SPEC : [id number] PETRA: 02/01/24 STATUS: COMP REQ : [id number] RECD: 02/01/[address]: Argelia Salas MD COMP: 02/01/24 ENTERED: 02/01/[address]: ORDERED: Met Prof Fast, AST, ALT, Lipid Panel, Vitamin D 25-OH Test Result Flag Reference Sodium 141 135-145 mmol/L Potassium 3.9 3.3-5.1 mmol/L CL 106 96-108 mmol/L CO2 26 22-29 mmol/L Gap 13 12-20 BUN 11 9-16 mg/dL Creat 0.78 0.5-1.4 mg/dL eGFR > 60 Chronic Kidney Disease: Estimated GFR < 60 mL/min/1.73m2 Severe Kidney Disease: Estimated GFR < 15 mL/min/1.73m2 FBS 117 H 60-99 mg/dL A fasting glucose from 100-125 mg/dl is considered impaired (pre-diabetes). CA 9.6 8.4-10.2 mg/dL AST (GOT) 35 H 5-31 U/L ALT (GPT) 30 0-31 U/L Triglyceride 104 <150 mg/dL Desirable Triglyceride: less than 150 mg/dL Borderline High Triglyceride 150-199 mg/dL High Triglyceride: 200-499 mg/dL Very High Triglyceride: greater than or equal to 5OO mg/dL Cholesterol 177 <200 mg/dL Desirable Cholesterol: less than 200 mg/dL Borderline High Cholesterol: 200-239 mg/dL High Cholesterol: greater than 239 mg/dL LDL Calculated 104 H <100 mg/dL Desirable LDL: less than 100 mg/dL Near Optimal/Above Optimal LDL: 110-129 mg/dL Borderline High LDL: 130-159 mg/dL High LDL: 160-189 mg/dL Very High LDL: greater than or equal to 190 mg/dL HDL 53 >40 mg/dL Desirable HDL: greater than 40 mg/dL Note: This HDL assay may give artificially low results in patients with liver disease. Vit D 25-OH Tot 48.6 >30 ng/mL Health Based Reference Values* < 20 ng/mL Deficient 20-30 ng/mL Insufficient > 30 ng/mL Sufficient *Layne DIAZ. N Engl J Med. 2007;[id number] Coding Level of Care Code Est Pt Prev Care >65y(87878) Diagnoses Annual visit for general adult medical examination with abnormal findings Z00.01 GERD (gastroesophageal reflux disease) K21.9 Hiatal hernia K44.9 Dyslipidemia E78.5 Osteopenia of left hip M85.852 Laterality: left Osteopenia location: hip RLS (restless legs syndrome) G25.81 Type 2 diabetes mellitus without complication, with no history of insulin use E11.9 Irritable bowel syndrome with constipation K58.1 Assessment & Plan Assessment & Plan (1) Annual visit for general adult medical examination with abnormal findings: Code(s): Z00.01 - Encounter for general adult medical examination with abnormal findings (2) GERD (gastroesophageal reflux disease): Code(s): K21.9 - Gastro-esophageal reflux disease without esophagitis Category: Medical (3) Hiatal hernia: Code(s): K44.9 - Diaphragmatic hernia without obstruction or gangrene Category: Medical (4) Dyslipidemia: Code(s): E78.5 - Hyperlipidemia, unspecified Category: Medical (5) Osteopenia: Code(s): M85.80 - Other specified disorders of bone density and structure, unspecified site Category: Medical Qualifiers: Laterality: left Osteopenia location: hip Qualified Code(s): M85.852 - Other specified disorders of bone density and structure, left thigh (6) RLS (restless legs syndrome): Code(s): G25.81 - Restless legs syndrome Category: Medical (7) Type 2 diabetes mellitus without complication, with no history of insulin use: Code(s): E11.9 - Type 2 diabetes mellitus without complications Category: Medical (8) Irritable bowel syndrome with constipation: Code(s): K58.1 - Irritable bowel syndrome with constipation Category: Medical Plan During the consultation, we discussed the importance of maintaining control over prediabetes status, with a specific focus on lifestyle modifications to prevent progression to type 2 diabetes. Management of cholesterol levels was reviewed, emphasizing the slight elevation in LDL cholesterol and the importance of dietary measures. The patient's osteopenia was seen on recent bone density scan done at [facility] 08/26/2023, with encouragement of regular calcium intake and exercises to improve bone density. We also addressed her pain management strategies, recommending topical treatment for her elbow discomfort and advising on sleep positioning to alleviate nerve compression. She was counseled on the potential benefits of additional vaccinations such as the RSV vaccine. Up-to-date with her screening mammogram done earlier this year, and had a screening colonoscopy done in 2020 with removal of a tubular adenoma, repeat screening colonoscopy due again in 2025. - Schedule regular blood tests to monitor blood glucose and cholesterol levels. - Implement dietary changes to help manage cholesterol and blood glucose levels. - Use Diclofenac gel as directed for elbow pain and avoid sleeping on the affected side. - Maintain calcium intake consistently to support bone health. - Consider RSV vaccination in the future for respiratory protection. - Plan to undertake recommended exercise routines to improve joint flexibility and bone strength. - Follow up with eye examination and dental care as soon as possible. - Reassess vaccine status as new information or recommendations become available. -up-to-date with her screening mammogram and bone density scan done earlier this year. -up-to-date with her screening colonoscopy done in 2020 together with her an upper endoscopy, tubular adenoma removed from colon, repeat due again in 2025 Orders: Orders Lipid Panel 05/13/24 E11.9 - Type 2 diabetes mellitus without complications, E78.5 - Hyperlipidemia, unspecified, G25.81 - Restless legs syndrome, K21.9 - Gastro-esophageal reflux disease without esophagitis, K44.9 - Diaphragmatic hernia without obstruction or gangrene, K58.1 - Irritable bowel syndrome with constipation, M85.852 - Other specified disorders of bone density and structure, left thigh, Z00.01 - Encounter for general adult medical examination with abnormal findings Microalbumin, Random (w Creat) 05/13/24 E11.9 - Type 2 diabetes mellitus without complications, E78.5 - Hyperlipidemia, unspecified, G25.81 - Restless legs syndrome, K21.9 - Gastro-esophageal reflux disease without esophagitis, K44.9 - Diaphragmatic hernia without obstruction or gangrene, K58.1 - Irritable bowel syndrome with constipation, M85.852 - Other specified disorders of bone density and structure, left thigh, Z00.01 - Encounter for general adult medical examination with abnormal findings Basic Metabolic Panel Fasting 05/13/24 E11.9 - Type 2 diabetes mellitus without complications, E78.5 - Hyperlipidemia, unspecified, G25.81 - Restless legs syndrome, K21.9 - Gastro-esophageal reflux disease without esophagitis, K44.9 - Diaphragmatic hernia without obstruction or gangrene, K58.1 - Irritable bowel syndrome with constipation, M85.852 - Other specified disorders of bone density and structure, left thigh, Z00.01 - Encounter for general adult medical examination with abnormal findings Vitamin D 25-OH Total 05/13/24 E11.9 - Type 2 diabetes mellitus without complications, E78.5 - Hyperlipidemia, unspecified, G25.81 - Restless legs syndrome, K21.9 - Gastro-esophageal reflux disease without esophagitis, K44.9 - Diaphragmatic hernia without obstruction or gangrene, K58.1 - Irritable bowel syndrome with constipation, M85.852 - Other specified disorders of bone density and structure, left thigh, Z00.01 - Encounter for general adult medical examination with abnormal findings Hemoglobin A1c 05/13/24 E11.9 - Type 2 diabetes mellitus without complications, E78.5 - Hyperlipidemia, unspecified, G25.81 - Restless legs syndrome, K21.9 - Gastro-esophageal reflux disease without esophagitis, K44.9 - Diaphragmatic hernia without obstruction or gangrene, K58.1 - Irritable bowel syndrome with constipation, M85.852 - Other specified disorders of bone density and structure, left thigh, Z00.01 - Encounter for general adult medical examination with abnormal findings Alanine Aminotransferase 05/13/24 E11.9 - Type 2 diabetes mellitus without complications, E78.5 - Hyperlipidemia, unspecified, G25.81 - Restless legs syndrome, K21.9 - Gastro-esophageal reflux disease without esophagitis, K44.9 - Diaphragmatic hernia without obstruction or gangrene, K58.1 - Irritable bowel syndrome with constipation, M85.852 - Other specified disorders of bone density and structure, left thigh, Z00.01 - Encounter for general adult medical examination with abnormal findings Aspartate Amino Transferase 05/13/24 E11.9 - Type 2 diabetes mellitus without complications, E78.5 - Hyperlipidemia, unspecified, G25.81 - Restless legs syndrome, K21.9 - Gastro-esophageal reflux disease without esophagitis, K44.9 - Diaphragmatic hernia without obstruction or gangrene, K58.1 - Irritable bowel syndrome with constipation, M85.852 - Other specified disorders of bone density and structure, left thigh, Z00.01 - Encounter for general adult medical examination with abnormal findings
== END 2024-02-08 12:39 | disposition home or self-care (01) ==
PROVIDERS: PCP Internal Medicine; Visit Provider Internal Medicine
DX: Z00.00 Encounter for general adult medical examination without abnormal findings (principal); E11.69 Type 2 diabetes mellitus with other specified complication; K21.9 Gastro-esophageal reflux disease without esophagitis; K44.9 Diaphragmatic hernia without obstruction or gangrene; E78.5 Hyperlipidemia, unspecified; M85.852 Other specified disorders of bone density and structure, left thigh; G25.81 Restless legs syndrome; K58.1 Irritable bowel syndrome with constipation

== ENCOUNTER → 2024-02-08 10:34 | Outpatient (BNVA) | payer OTHER, SELFPAY | PROVIDERS: PCP Internal Medicine; Visit Provider Internal Medicine | DX: Z00.01 Encounter for general adult medical examination with abnormal findings (principal); K21.9 Gastro-esophageal reflux disease without esophagitis; K44.9 Diaphragmatic hernia without obstruction or gangrene; E78.5 Hyperlipidemia, unspecified; M85.852 Other specified disorders of bone density and structure, left thigh; G25.81 Restless legs syndrome; E11.9 Type 2 diabetes mellitus without complications; K58.1 Irritable bowel syndrome with constipation | CPT/HCPCS: 99397 ==

== ENCOUNTER 2024-02-19 10:46 | Outpatient (AMB) | payer OTHER, SELFPAY ==
[2024-02-19 12:12] VITALS: BP 110/70; PULSE 62; TEMP 36.7; O2SAT 98; BMI 28.7
--- NOTE | 2024-02-19 12:12 | MHC.OFFWIV ---
Intake Vital Signs 02/19/24 12:12 Height 5 ft Weight 147 lb BMI 28.7 BP 110/70 Blood Pressure Location Lt brachial Position Sitting Pulse 62 Pulse Source Pulse Oximeter Temp 98.0 F Temp Source Oral Pulse Oximetry (%) 98 Oxygen Delivery Method Room Air Intake Visit Reasons: EP- Lt side shoulder & neck pain Intake Note: Pt is here today c/p Lt shoulder and neck recurrent pain: no injury noted Patient Tobacco Use Status: Never used Tobacco Allergies metronidazole [Flagyl] Allergy (Unknown, Verified 02/19/24 12:13) unknown Penicillins Allergy (Verified 02/19/24 12:13) Rash egg Allergy (Unknown, Uncoded 02/19/24 12:13) GI upset Codeine Sulfate Adverse Reaction (Unknown, Uncoded 02/19/24 12:13) palpitation HPI EP- Lt side shoulder & neck pain HPI Details RIGHT shoulder & Neck pain (not L). Ongoing for several weeks now. Has tried stretching exercises and OTC topical medications. Does not tolerate NSAIDs but has used a little Tylenol PFSH Medical History Irritable bowel syndrome with constipation Depression, major, in remission Blurred vision, right eye Tubular adenoma of colon Type 2 diabetes mellitus without complication, with no history of insulin use Heartburn Hirsutism RLS (restless legs syndrome) Osteopenia Dyslipidemia Arthritis Hiatal hernia GERD (gastroesophageal reflux disease) Surgical History History of pterygium excision History of ear surgery History of carpal tunnel release Hx of hysterectomy History of esophagogastroduodenoscopy (EGD) Hx of colonoscopy Family History Mother Mental health disorder Social History Housing: House Alcohol intake: current Alcohol intake frequency: holidays/special occasions only Patient Tobacco Use Status: Never used Tobacco e-Cigarette/Vaping Use: Never Used Second Hand Smoke Exposure: No service: No Current occupational status: unemployed Cognitive needs: No Hearing needs: No Vision needs: Yes Review of Systems Const Denies chills, Denies fatigue, Denies fever(s), Denies headache(s) and Denies weakness ENT Denies dizziness and Denies headache(s) Card Denies dyspnea Resp Denies cough, Denies dyspnea, Denies wheezing and Denies other ( shortness of breath) Musc Details: Right shoulder neck pain-see HPI Denies numbness and Denies tingling Neuro Denies dizziness, Denies headache(s), Denies numbness, Denies tingling, Denies paresthesias and Denies weakness Psych Denies anxiety and Denies depression Endo Denies fatigue Aller/Immun Denies wheezing Physical Exam Vital Signs: Last Vital Signs Temp 98.0 F 02/19/24 12:12 Pulse 62 02/19/24 12:12 BP 110/70 02/19/24 12:12 Pulse Ox 98 02/19/24 12:12 Oxygen Delivery Method Room Air 02/19/24 12:12 BMI result Body Mass Index 28.7 Const General: no acute distress and well developed Nutritional Appearance: well nourished Orientation/consciousness: patient oriented x3 HEENT Head: Yes normocephalic and Yes atraumatic Eyes General: appearance normal, both eyes and all related structures Pupils: Equal, round and reactive pupils present EOM: EOMs intact bilaterally Resp Effort & Inspection: normal respiratory effort Neuro General: patient oriented x3 and gait normal Cranial nerves: Yes Equal, round and reactive pupils present Extrem Other: Right trapezius muscle pain and right cervical paraspinous muscle pain and tension. Normal range of motion Psych Affect: normal affect Assessment & Plan Assessment & Plan (1) Trapezius muscle strain: Code(s): S46.819A - Strain of other muscles, fascia and tendons at shoulder and upper arm level, unspecified arm, initial encounter Plan: Advised ice/heat, relative rest, Tylenol and will give her a script for cyclobenzaprine for up to 5 days Advised caution with cyclobenzaprine: Do not operate machinery or drive a car until you know how will make you feel. Do not use with anything else that could make you drowsy such as alcohol. Will also give her a script for diclofenac gel. Advised physical therapy but she says she is going on a trip and if this has not resolved when she returns she will consider it. Medications: New cyclobenzaprine 5 mg PO BID 5 days PRN 10 tabs 0RF muscle spasm diclofenac sodium 1% apply to single knee, ankle, foot; for foot includes sole/toes/top of foot 4 grams topical BID 10 days 100 grams 0RF Coding Level of Care Code Est Pt Level 3 (82782) Diagnoses Trapezius muscle strain S46.819A
== END 2024-02-19 13:20 | disposition home or self-care (01) ==
PROVIDERS: PCP Internal Medicine; Visit Provider Family Medicine
DX: S46.819A Strain of other muscles, fascia and tendons at shoulder and upper arm level, unspecified arm, initial encounter (principal)

== ENCOUNTER → 2024-02-19 10:46 | Outpatient (BNVA) | payer OTHER, SELFPAY | PROVIDERS: PCP Internal Medicine | DX: S46.811A Strain of other muscles, fascia and tendons at shoulder and upper arm level, right arm, initial encounter (principal) | CPT/HCPCS: 99212 ==

== ENCOUNTER → 2024-03-24 14:41 | Outpatient (BNVA) | payer OTHER, SELFPAY | PROVIDERS: PCP Internal Medicine; Visit Provider Physician Assistant | DX: N63.15 Unspecified lump in the right breast, overlapping quadrants (principal) | CPT/HCPCS: 99212 ==

== ENCOUNTER → 2024-03-24 14:41 | Outpatient (AMB) | payer OTHER, SELFPAY ==
--- NOTE | 2024-03-24 15:59 | MHC.OFFWIV ---
Intake Intake Visit Reasons: EP ?Cyst/bruising RT breast Patient Tobacco Use Status: Never used Tobacco Allergies metronidazole [Flagyl] Allergy (Unknown, Verified 02/19/24 12:13) unknown Penicillins Allergy (Verified 02/19/24 12:13) Rash egg Allergy (Unknown, Uncoded 02/19/24 12:13) GI upset Codeine Sulfate Adverse Reaction (Unknown, Uncoded 02/19/24 12:13) palpitation HPI HPI Comments History of Present Illness Details History of Present Illness - The patient is a 68-year-old female presenting with concern about a lump in the right breast. - The lump has been present for three weeks, initially larger, now smaller, black and blue, with pain on touch. - The patient applied Vicks, which reduced the lump's size, but no drainage occurred. - There's no swelling of lymph nodes observed by the patient. - Previous August mammogram showed no issues, though there is a family history of breast cancer in her mother (dx'd age 70)and sister (unsure what age dx'd). Physical Exam General: Cooperative, healthy appearing, comfortable, no acute distress and well developed Orientation: Patient oriented x3 Limitations: No limitations Head: Normal to inspection Ears: Hearing grossly normal bilaterally Nose: Normal external nose present Face and sinus: Normal facial exam Eyes: Appearance normal, both eyes and all related structures Neck: Normal visual inspection and Yes full ROM Respiratory: Normal respiratory effort and able to speak in complete sentences. Skin: 1cm deep lump palpated on the right lateral breast, tender to touch, surrounding ecchymosis, no drainage, Neuro: Patient oriented x3 Extremities: Normal to inspection [facility] Medical History Irritable bowel syndrome with constipation Depression, major, in remission Blurred vision, right eye Tubular adenoma of colon Type 2 diabetes mellitus without complication, with no history of insulin use Heartburn Hirsutism RLS (restless legs syndrome) Osteopenia Dyslipidemia Arthritis Hiatal hernia GERD (gastroesophageal reflux disease) Surgical History History of pterygium excision History of ear surgery History of carpal tunnel release Hx of hysterectomy History of esophagogastroduodenoscopy (EGD) Hx of colonoscopy Family History Mother Mental health disorder Social History Housing: House Alcohol intake: current Alcohol intake frequency: holidays/special occasions only Patient Tobacco Use Status: Never used Tobacco e-Cigarette/Vaping Use: Never Used Second Hand Smoke Exposure: No service: No Current occupational status: unemployed Cognitive needs: No Hearing needs: No Vision needs: Yes Review of Systems Const All systems reviewed & are unremarkable except as noted in HPI and below Assessment & Plan Assessment & Plan (1) Breast lump on right side at 9 o'clock position: Code(s): N63.15 - Unspecified lump in the right breast, overlapping quadrants Plan: Plan I messaged Dr. Salas, the patient's primary care physician, to request diagnostic right breast US for further coordination of her care and follow-up regarding this exam finding. The antibiotic treatment aims to address any potential abscess in the breast tissue. The plan includes ordering an ultrasound of the right breast to further assess the lump, given its characteristics and family history of breast cancer. Due to the suspicion of an infectious process, Keflex will be prescribed, respecting the patient?s penicillin allergy. Patient was informed and verbally consented to the use of an ambient scribe for clinic note documentation during this visit. Medications: New cephalexin 500 mg PO Q6H 28 caps 0RF Coding Level of Care Code Est Pt Level 4 (59064) Diagnoses Breast lump on right side at 9 o'clock position N63.15
== END ==
PROVIDERS: PCP Internal Medicine; Visit Provider Physician Assistant
DX: N63.15 Unspecified lump in the right breast, overlapping quadrants (principal)

== ENCOUNTER 2024-03-29 08:56 | Outpatient (AMB) | payer OTHER, SELFPAY ==
--- NOTE | 2024-03-29 09:05 | MHC.PC.OV ---
Vital Signs 03/29/24 09:08 Height 5 ft Weight 148 lb BMI 28.9 BP 118/62 Blood Pressure Location Lt brachial Position Sitting Pulse 62 Pulse Source Pulse Oximeter Pulse Oximetry (%) 96 Oxygen Delivery Method Room Air Intake Visit Reasons: lump Rt breast Intake Note: Pt is here today c/o Rt breast lump Allergies metronidazole [Flagyl] Allergy (Unknown, Verified 03/29/24 09:29) unknown Penicillins Allergy (Verified 03/29/24 09:29) Rash egg Allergy (Unknown, Uncoded 03/29/24 09:29) GI upset Codeine Sulfate Adverse Reaction (Unknown, Uncoded 03/29/24 09:29) palpitation Medication List - Last Reconciled 03/29/24 by Argelia Salas MD cephalexin 500 mg PO Q6H cyclobenzaprine 5 mg PO BID PRN 5 days diclofenac sodium 1% 4 grams topical BID 10 days dicyclomine 20 mg PO BID docusate sodium (DOK) 100 mg PO DAILY lorazepam 0.5 mg PO ONCE PRN omeprazole 40 mg PO DAILY ropinirole 1 mg PO DAILY rosuvastatin 5 mg PO DAILY 90 days spironolactone 50 mg PO DAILY Tobacco use date assessed: 03/29/24 Last assessed Fall Risk: 03/29/24 Dental Screening Dental Screen Date: 03/29/24 HPI lump Rt breast HPI Details The patient is a 68-year-old female presenting today for follow up after recent urgent care visit regarding a right breast mass that she noticed several weeks ago. No history of trauma. Describes a burning sensation on touching the area on her breast, initially observed as a small spot that progressed to a cyst-like lesion, some decrease in size with topical application of Vicks Vaporub ointment . Denies axillary lymphadenopathy or discharge from the lesion or right nipple. She was prescribed cephalexin which she has been taking now for the last 5 days, does not notice any resolution of mass. - Family history includes breast cancer in her sister (diagnosed in her 50s) and mother (diagnosed in her 70s. - Last screening mammogram in August 2023 , done at [facility], showed no evidence of malignancy [facility] Medical History Irritable bowel syndrome with constipation Depression, major, in remission Blurred vision, right eye Tubular adenoma of colon Type 2 diabetes mellitus without complication, with no history of insulin use Heartburn Hirsutism RLS (restless legs syndrome) Osteopenia Dyslipidemia Arthritis Hiatal hernia GERD (gastroesophageal reflux disease) Surgical History History of pterygium excision History of ear surgery History of carpal tunnel release Hx of hysterectomy History of esophagogastroduodenoscopy (EGD) Hx of colonoscopy Family History (Updated 03/29/24 @ 09:47 by Argelia Salas MD) Mother Mental health disorder Breast cancer Sister Breast cancer Social History Housing: House Alcohol intake: current Alcohol intake frequency: holidays/special occasions only Patient Tobacco Use Status: Never used Tobacco e-Cigarette/Vaping Use: Never Used Second Hand Smoke Exposure: No service: No Current occupational status: unemployed Cognitive needs: No Hearing needs: No Vision needs: Yes Questionnaire PHQ-9 Over the last 2 weeks, how often have you been bothered by any of the following problems? 1. Little interest or pleasure in doing things: not at all 2. Feeling down, depressed, or hopeless: not at all 3. Trouble falling or staying asleep, or sleeping too much: several days 4. Feeling tired or having little energy: several days 5. Poor appetite or overeating: not at all 6. Feeling bad about yourself - or that you are a failure or have let yourself or your family down: not at all 7. Trouble concentrating on things, such as reading the newspaper or watching television: not at all 8. Moving or speaking so slowly that other people could have noticed. Or the opposite - being so fidgety or restless that you have been moving around a lot more than usual: not at all 9. Thoughts that you would be better off or of hurting yourself in some way: not at all Total score: 2 Depression Screening Interpretation: Negative Depression Screening Done: Yes 15987 - PHQ-9 Billing: Yes Source: Developed by Drs. Prem Palacios, Radha Arambula, Cody Rousseau and colleagues, with an educational cameron from [employer]. Thrive Questionnaire Date Thrive assessed: 03/28/24 I am a: Patient What is your living situation today?: I have a steady place to live Within the past 12 months, did the food you bought not last and you didn't have the money to get more?: I choose not to answer this question Within the past 12 months, did you worry whether your food would run out before you got money to buy more?: I choose not to answer this question Do you have trouble paying for medicines?: No Do you have trouble getting transportation to medical appointments?: No Do you have trouble paying your heating and electricity bill?: I choose not to answer this question Do you have trouble taking care of your child, family member or friend?: I choose not to answer this question Do you have trouble with day-to-day activities such as bathing, preparing meals, shopping, managing finances, etc.?: No Are you currently unemployed and looking for a job?: No Are you interested in more education?: No Please select the resources that you would like help with: None Currently or been in a relationship where the following occur: I choose not to answer THRIVE Score: 0 AUDIT C Alcohol Use Questionnaire (AUDIT-C) 1. How often do you have a drink containing alcohol?: Never 3. How often do you have six or more drinks on one occasion?: Never Total Score: 0 FUNMILAYO-7 AMB Questionnaire FUNMILAYO-7 Date FUNMILAYO - 7 assessed: 07/05/23 Feeling nervous, anxious, or on edge: 0 = Not at all Not being able to stop or control worryin = Not at all Worrying too much about different things: 0 = Not at all Trouble relaxin = Not at all Being so restless that it is hard to sit still: 0 = Not at all Becoming easily annoyed or irritable: 0 = Not at all Feeling afraid as if something awful might happen: 0 = Not at all Total FUNMILAYO-7 score (0-4 normal; 5-9 mild; 10-14 moderate; 15-21 severe): 0 Source: Developed by Drs. Prem Palacios, Radha Arambula, Cody Rousseau and colleagues, with an educational cameron from [employer]. FUNMILAYO-7 Assessment Billing FUNMILAYO-7 Assessment Tool: FUNMILAYO-7 Assessment 50702 Review of Systems Const All systems reviewed & are unremarkable except as noted in HPI and below Physical exam (Primary Care) Vital Signs: Last Vital Signs Pulse 62 03/29/24 09:08 BP 118/62 03/29/24 09:08 Pulse Ox 96 03/29/24 09:08 Oxygen Delivery Method Room Air 03/29/24 09:08 BMI result Body Mass Index 28.9 Tobacco/Smoking Status: Tobacco use Status Tobacco use date assessed 03/29/24 03/29/24 09:16 Patient Tobacco Use Status Never used Tobacco 03/29/24 09:07 e-Cigarette/Vaping Use Never Used 03/29/24 09:07 PHQ-9: PHQ-9 Score PHQ-9: Total score 2 03/29/24 09:33 Depression Screening Interpretation: Negative Thrive Assessment: Date of Thrive Assessment Date Thrive assessed 03/28/24 03/29/24 09:07 Currently or been in a relationship where the following occur: I choose not to answer Const Other: Alert oriented x3, no acute distress noted, ambulatory normal gait Orientation/consciousness: patient oriented x3 HENMT Face and sinus: Yes face symmetric Mouth: moist mucous membranes Neck Neck: Yes full ROM, Yes no lymphadenopathy and Yes supple Chest Other: Slightly raised hyperpigmented circular lesion between 10 to 11 o'clock position on right breast, slightly tender to palpation, normal surrounding skin noted, no nipple discharge Resp Auscultation: clear to auscultation bilaterally Cardio Other: S1-S2 present regular rate and rhythm GI Palpation (GI): Soft to palpation, nontender, no guarding and no masses Auscultation: normal bowel sounds Skin General skin exam: no rashes or lesions noted Neuro General: patient oriented x3, gait normal, tone normal, moves all extremities and no focal motor deficits Extrem General: Yes full ROM, Yes no joint enlargement, Yes no clubbing, cyanosis or edema, Yes no pedal edema, Yes no calf tenderness and Yes normal gait Psych Appearance: grossly normal and well kempt Mental Status: mental status grossly normal Speech and movement: Normal speech and movement present Affect: normal affect Coding Level of Care Code Est Pt Level 3 (24265) Diagnoses Breast lump on right side at 10 o'clock position N63.11 Additional Codes PHQ-9 - 00816 - PHQ-9 Billing: Yes ([id number]) FUNMILAYO-7 Assessment Billing - FUNMILAYO-7 Assessment Tool: FUNMILAYO-7 Assessment 18064 ([id number]) Assessment & Plan Assessment & Plan (1) Breast lump on right side at 10 o'clock position: Code(s): N63.11 - Unspecified lump in the right breast, upper outer quadrant Plan Patient with strong family history for breast cancer, ordered a diagnostic right mammogram and right breast ultrasound for further evaluation and management will refer to breast surgery and Oncology depending on results tests Orders: Orders MM tomosynthesis diagnostic RT 03/29/24 N63.11 - Unspecified lump in the right breast, upper outer quadrant US breast RT complete 03/29/24 N63.11 - Unspecified lump in the right breast, upper outer quadrant
[2024-03-29 09:08] VITALS: BP 118/62; PULSE 62; O2SAT 96; BMI 28.9
== END 2024-03-29 09:41 | disposition home or self-care (01) ==
PROVIDERS: PCP Internal Medicine; Visit Provider Internal Medicine
DX: N63.11 Unspecified lump in the right breast, upper outer quadrant (principal)

== ENCOUNTER → 2024-03-29 08:56 | Outpatient (BNVA) | payer OTHER, SELFPAY | PROVIDERS: PCP Internal Medicine; Visit Provider Internal Medicine | DX: N63.11 Unspecified lump in the right breast, upper outer quadrant (principal) | CPT/HCPCS: 96127; 99212 ==

== ENCOUNTER 2024-06-02 10:22 | Outpatient (REF) | payer OTHER, SELFPAY ==
--- OUTSIDE RECORDS SUMMARY | 2024-06-02 12:25 | XMS_ITS | Patient Health Record ---
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 Name Role Phone Maritza RAMÍREZ, Argelia Primary Care Provider Prem Dubon [phone] Allergies Allergen (clinical drug ingredient) Drug/Non Drug Allergy documented on EMR Reaction Allergy Type Onset Date Status Penicillin Unknown Drug Allergy Active codeine Codeine Sulfate Unknown Drug Allergy A ctive eggs (uncoded) Unknown Allergy Activ e Reason For Referral No Information Medications Medication SIG (Take, Route, Fr equency, Duration) Notes Start Date End Date Status Dulcolax 100 MG 1 tablet as needed O rally Once a day Active Spironolactone 50 MG 1 tablet Orally Once a day Unknown Requip 5 MG 1 tablet Orally Once a day Unknown NexIUM 40 MG 1 capsule Orally Once a day Unknown D3-50 [id number] UNIT 1 capsule Orally once a week Unknown Immunizations Vaccine Route Administration Date Status Comme nts Influenza Unknown 11/17/2018 Refused Problems Problem Type SNOMED Code ICD Code Onset Dates Problem Status W/U Status Risk Notes Problem 952404721 Encounter for screening for malignant neoplasm of colon (Z12.11) Active confirmed Problem 452794272 History of adenomatous polyp of colon (Z86.010) Active confirmed Problem 210821676 Gastroesophageal reflux disease without esophagitis (K21.9) Active confirmed Problem 952416207 Family history o f colon cancer (Z80.0) Active confirmed Problem 618986412 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 Plan Of Treatment Pending Test Test Name Order Date Pathology 03/25/2020 Future Test Test Name Order Date UPPER GI ENDOSCOPY 07/06/2013 COLONOSCOPY 07/06/2013 UPPER GI ENDOSCOPY 11/17/2018 COLONOSCOPY 11/17/2018 Insurance Providers Payer Name Payer Address Payer Phone Subscriber Number Group Number Insured Name Patient Relationship to Insured Coverage Start Date Coverage End Date MEDICARE OF [place] [address] [place] [id number] [phone] [id number] DIANA SOTO Self - patient is the insured MEDICAID [facility] [place] [facility] [address] [place] [address] [id number] DIANA SOTO Self - patient is the insured Medical (General) History Medical History History ICD Code GERD-EGD in 11/2013-smll HH-- minute area of Monique's esophagus but no dysplasia--no esophagitis EGD/Colon 09/18/2008--colono scopy with several small tubular adenomas removed, diverticulosis, and internal hemorrhoids; EGD with a small HH and reflux--no Monique's Denies PA,DM,CVA,Lung disease,renal dise ase Restless leg syndrome Hirsutism-facial hair--uses Spironolacto ne Negative colonoscopy in 11/2013 Hemorrhoidal bleeding-saw Dr. Do-- no surgery Surgical History Surgery Date(Month/Year) Hysterectomy Eye surgery Carpal tunnel on right Right eardrum surgery on 12/09/18-Dr. Julien on
[2024-06-02 13:53] LABS: Estimated Average Glucose 134 mg/dL; Hemoglobin A1C 174.5958 umol/L; Hemoglobin A1c % 6.3 % (<6.0); Total Hemoglobin (HGBA1C) 3869.8481 umol/L
[2024-06-02 14:21] LABS: Creatinine Urine 292.26 mg/dL; Microalbum/Creatinine Ratio Ur 5.8 ug/mg cr (<30)
[2024-06-02 14:23] LABS: Alanine Aminotransferase 37 U/L (0-31); Anion Gap 11 (12-20); Aspartate Amino Transferase 36 U/L (5-31); Blood Urea Nitrogen 11 mg/dL (9-16); Calcium 9.4 mg/dL (8.4-10.2); Carbon Dioxide 26 mmol/L (22-29); Chloride 107 mmol/L (96-108); Cholesterol 218 mg/dL (<200); Estimated Glomerular Filt Rate > 60; Glucose Fasting 109 mg/dL (60-99); HDL Cholesterol 47 mg/dL (>40); LDL Cholesterol Calculated 142 mg/dL (<100); Potassium 4.3 mmol/L (3.3-5.1); Sodium 140 mmol/L (135-145); Triglycerides 149 mg/dL (<150); Vitamin D 25-OH Total 65.2 ng/mL (>30)
== END 2024-06-02 10:23 | disposition home or self-care (01) ==
LOC: HO.HMGCLDS 10:22
PROVIDERS: PCP Internal Medicine; Visit Provider Internal Medicine
DX: Z00.01 Encounter for general adult medical examination with abnormal findings (principal); K58.1 Irritable bowel syndrome with constipation; K21.9 Gastro-esophageal reflux disease without esophagitis; K44.9 Diaphragmatic hernia without obstruction or gangrene; E11.9 Type 2 diabetes mellitus without complications; G25.81 Restless legs syndrome; M85.852 Other specified disorders of bone density and structure, left thigh; E78.5 Hyperlipidemia, unspecified
CPT/HCPCS: 36415; 80048; 80061; 82043; 82306; 82570; 83036; 84450; 84460

== ENCOUNTER 2024-06-08 11:11 | Outpatient (AMB) | payer OTHER, SELFPAY ==
[2024-06-08 12:13] VITALS: BP 122/70; PULSE 66; RESP 15; TEMP 36.7; O2SAT 97; BMI 28.9
--- NOTE | 2024-06-08 12:13 | A.OFFPC_ITS ---
Vital Signs 06/08/24 12:13 Height 5 ft Weight 148 lb BMI 28.9 BP 122/70 Blood Pressure Location Lt brachial Position Sitting Respiration 15 Pulse 66 Pulse Source Pulse Oximeter Temp 98.1 F Temp Source Oral Pulse Oximetry (%) 97 Oxygen Delivery Method Room Air Intake Visit Reasons: 4 months f/up Allergies metronidazole [Flagyl] Allergy (Unknown, Verified 03/29/24 09:29) unknown Penicillins Allergy (Verified 03/29/24 09:29) Rash egg Allergy (Unknown, Uncoded 03/29/24 09:29) GI upset Codeine Sulfate Adverse Reaction (Unknown, Uncoded 03/29/24 09:29) palpitation Medication List - Last Reconciled 06/09/24 by Argelia Salas MD cyclobenzaprine 5 mg PO BID PRN 5 days diclofenac sodium 1% 4 grams topical BID 10 days dicyclomine 20 mg PO BID docusate sodium (DOK) 100 mg PO DAILY lorazepam 0.5 mg PO ONCE PRN omeprazole 40 mg PO DAILY ropinirole 1 mg PO DAILY rosuvastatin 5 mg PO DAILY 90 days spironolactone 50 mg PO DAILY Tobacco use date assessed: 06/08/24 Fall risk assessment: No Falls in past year Last assessed Fall Risk: 06/08/24 Dental Screening Dental Screen Date: 06/08/24 Did you have a dental visit in the last 12 months?: No Did you have a dental problem in the last 6 months where you did not have access to dental care?: No HPI 4 months f/up HPI Details 68-year-old female with past medical hi story significant for prediabetes, hyperlipidemia, and osteopenia, here today for her follow-up. She has been compliant with adhering to a healthy diet, stays active, but does not do any regular exercise. Her latest fasting labs showed hemoglobin A1c slightly higher than last check at 6.3%, with fasting lipids within normal limits. She has osteopenia, in the lower back, with a T-score of -1.8 and worsened thinning in her hip. No history of fractures. She has history of depression, currently in remission, not on any medications at present time. She has been given a prescription for short course of lorazepam to take only as needed for acute anxiety when she has to ride a plane. [facility] Medical History (Updated 06/09/24 @ 03:34 by Argelia Salas MD) Prediabetes Fear of flying Irritable bowel syndrome with constipation Depression, major, in remission Blurred vision, right eye Tubular adenoma of colon Heartburn RLS (restless legs syndrome) Osteopenia Dyslipidemia Arthritis Hiatal hernia GERD (gastroesophageal reflux disease) Surgical History History of pterygium excision History of ear surgery History of carpal tunnel release Hx of hysterectomy History of esophagogastroduodenoscopy (EGD) Hx of colonoscopy Family History Mother Mental health disorder Breast cancer Sister Breast cancer Social History Housing: House Alcohol intake: current Alcohol intake frequency: holidays/special occasions only Patient Tobacco Use Status: Never used Tobacco e-Cigarette/Vaping Use: Never Used Second Hand Smoke Exposure: No service: No Current occupational status: unemployed Cognitive needs: No Hearing needs: No Vision needs: Yes Questionnaire PHQ-9 Over the last 2 weeks, how often have you been bothered by any of the following problems? Depression Screening Interpretation: Negative Depression Screening Done: Yes Source: Developed by Drs. Prem Palacios, Radha Arambula, Cody Rousseau and colleagues, with an educational cameron from [employer]. Thrive Questionnaire Date Thrive assessed: 03/28/24 I am a: Patient What is your living situation today?: I have a steady place to live Within the past 12 months, did the food you bought not last and you didn't have the money to get more?: I choose not to answer this question Within the past 12 months, did you worry whether your food would run out before you got money to buy more?: I choose not to answer this question Do you have trouble paying for medicines?: No Do you have trouble getting transportation to medical appointments?: No Do you have trouble paying your heating and electricity bill?: I choose not to answer this question Do you have trouble taking care of your child, family member or friend?: I choose not to answer this question Do you have trouble with day-to-day activities such as bathing, preparing meals, shopping, managing finances, etc.?: No Are you currently unemployed and looking for a job?: No Are you interested in more education?: No Please select the resources that you would like help with: None Currently or been in a relationship where the following occur: I choose not to answer THRIVE Score: 0 FUNMILAYO-7 AMB Questionnaire FUNMILAYO-7 Date FUNMILAYO - 7 assessed: 07/05/23 Source: Developed by Drs. Prem Palacios, Radha Arambula, Cody Rousseau and colleagues, with an educational cameron from [employer]. Review of Systems Const Denies headache(s) and Denies malaise Eyes Details: Dr Curtis ENT Denies dizziness, Denies headache(s) and Denies nasal congestion Card Reports no additional complaints Resp Reports no additional complaints GI Denies abdominal pain, Denies melena, Denies bloating, Denies change in bowel habits and Denies heartburn Reports no additional complaints Musc Reports no additional complaints Neuro Denies dizziness and Denies headache(s) Psych Reports no additional complaints Endo Reports no additional complaints Ruben/Lymph Reports no additional complaints Aller/Immun Reports no additional complaints Physical exam (Primary Care) Vital Signs: Last Vital Signs Temp 98.1 F 06/08/24 12:13 Pulse 66 06/08/24 12:13 Resp 15 06/08/24 12:13 BP 122/70 06/08/24 12:13 Pulse Ox 97 06/08/24 12:13 Oxygen Delivery Method Room Air 06/08/24 12:13 BMI result Body Mass Index 28.9 Tobacco/Smoking Status: Tobacco use Status Tobacco use date assessed 06/08/24 06/08/24 12:16 Patient Tobacco Use Status Never used Tobacco 06/08/24 12:16 e-Cigarette/Vaping Use Never Used 06/08/24 12:16 Depression Screening Interpretation: Negative Thrive Assessment: Date of Thrive Assessment Date Thrive assessed 03/28/24 06/08/24 12:16 Currently or been in a relationship where the following occur: I choose not to answer Const Other: Alert oriented x3, no acute distress noted, ambulatory normal gait Orientation/consciousness: patient oriented x3 HENMT Face and sinus: Yes face symmetric Mouth: moist mucous membranes Neck Neck: Yes full ROM, Yes no lymphadenopathy and Yes supple Resp Auscultation: clear to auscultation bilaterally Cardio Other: S1-S2 present regular rate and rhythm GI Palpation (GI): Soft to palpation, nontender, no guarding and no masses Auscultation: normal bowel sounds Skin General skin exam: no rashes or lesions noted Neuro General: patient oriented x3, gait normal, tone normal, moves all extremities and no focal motor deficits Extrem General: Yes full ROM, Yes no joint enlargement, Yes no clubbing, cyanosis or edema, Yes no pedal edema, Yes no calf tenderness and Yes normal gait Psych Appearance: grossly normal and well kempt Mental Status: mental status grossly normal Speech and movement: Normal speech and movement present Affect: normal affect Results Reviewed Results Reviewed: Laboratory Tests 06/02/24 06/02/24 10:25 10:30 Estimat Average Glucose 134 Hemoglobin A1c % 6.3 H Urine Creatinine 292.26 Urine Microalbumin 17.0 Microalb/Creat Ratio 5.8 Name: Martha Quintero Age/Sex: 68/F : 1955 Unit#: [id number] Attend Dr: Argelia Salas MD Re06/02/24 Status: DEP REF Location: [facility] Disch: SPEC : [id number] PETRA: 06/02/24-1024 STATUS: COMP REQ : [id number] RECD: 06/02/24-[address]: Argelia Salas MD COMP: 06/02/24-1423 ENTERED: 06/02/24-[address]: ORDERED: Met Prof Fast, AST, ALT, Lipid Panel, Vitamin D 25-OH Test Result Flag Reference Sodium 140 135-145 mmol/L Potassium 4.3 3.3-5.1 mmol/L CL 107 96-108 mmol/L CO2 26 22-29 mmol/L Gap 11 L 12-20 BUN 11 9-16 mg/dL Creat 0.71 0.5-1.4 mg/dL eGFR > 60 Chronic Kidney Disease: Estimated GFR < 60 mL/min/1.73m2 Severe Kidney Disease: Estimated GFR < 15 mL/min/1.73m2 FBS 109 H 60-99 mg/dL A fasting glucose from 100-125 mg/dl is considered impaired (pre-diabetes). CA 9.4 8.4-10.2 mg/dL AST (GOT) 36 H 5-31 U/L ALT (GPT) 37 H 0-31 U/L Triglyceride 149 <150 mg/dL Desirable Triglyceride: less than 150 mg/dL Borderline High Triglyceride 150-199 mg/dL High Triglyceride: 200-499 mg/dL Very High Triglyceride: greater than or equal to 5OO mg/dL Cholesterol 218 H <200 mg/dL Desirable Cholesterol: less than 200 mg/dL Borderline High Cholesterol: 200-239 mg/dL High Cholesterol: greater than 239 mg/dL LDL Calculated 142 H <100 mg/dL Desirable LDL: less than 100 mg/dL Near Optimal/Above Optimal LDL: 110-129 mg/dL Borderline High LDL: 130-159 mg/dL High LDL: 160-189 mg/dL Very High LDL: greater than or equal to 190 mg/dL HDL 47 >40 mg/dL Desirable HDL: greater than 40 mg/dL Note: This HDL assay may give artificially low results in patients with liver disease. Vitamin D 25-OH 65.2 >30 ng/mL Health Based Reference Values* < 20 ng/mL Deficient 20-30 ng/mL Insufficient > 30 ng/mL Sufficient Coding Level of Care Code Est Pt Level 4 (68274) Complex EM visit Add On G2211 Diagnoses Dyslipidemia E78.5 Prediabetes R73.03 Assessment & Plan Assessment & Plan (1) Dyslipidemia: Code(s): E78.5 - Hyperlipidemia, unspecified Category: Medical Plan: Discuss results of recent fasting lipids which showed LDL cholesterol not at goal of less than 100 mg/dL. Patient would like to see if she can still go and bring this down through diet and exercise and continue with the same dose of rosuvastatin 5 mg taken once a day. Will repeat another fasting lipid panel in October 2024 (2) Prediabetes: Code(s): R73.03 - Prediabetes Category: Medical Plan: Your previous fasting blood sugars were elevated above 100 mg/dL. Impaired glucose metabolism increases the risk for developing diabetes mellitus type 2, as well as heart attack and stroke later on. Lifestyle changes that promotes weight loss, healthy eating habits, and regular exercise are important, and can prevent the progression to diabetes Orders: Orders Hemoglobin A1c 10/13/24 E11.9 - Type 2 diabetes mellitus without complications, E78.5 - Hyperlipidemia, unspecified, F32.5 - Major depressive disorder, single episode, in full remission, M85.852 - Other specified disorders of bone density and structure, left thigh Lipid Panel 10/13/24 E11.9 - Type 2 diabetes mellitus without complications, E78.5 - Hyperlipidemia, unspecified, F32.5 - Major depressive disorder, single episode, in full remission, M85.852 - Other specified disorders of bone density and structure, left thigh Aspartate Amino Transferase 10/13/24 E11.9 - Type 2 diabetes mellitus without complications, E78.5 - Hyperlipidemia, unspecified, F32.5 - Major depressive disorder, single episode, in full remission, M85.852 - Other specified disorders of bone density and structure, left thigh Alanine Aminotransferase 10/13/24 E11.9 - Type 2 diabetes mellitus without complications, E78.5 - Hyperlipidemia, unspecified, F32.5 - Major depressive disorder, single episode, in full remission, M85.852 - Other specified disorders of bone density and structure, left thigh Creatine Kinase Total 10/13/24 E11.9 - Type 2 diabetes mellitus without complications, E78.5 - Hyperlipidemia, unspecified, F32.5 - Major depressive disorder, single episode, in full remission, M85.852 - Other specified disorders of bone density and structure, left thigh
== END 2024-06-08 12:58 | disposition home or self-care (01) ==
LOC: HO.HMCC 11:12
PROVIDERS: PCP Internal Medicine; Visit Provider Internal Medicine
DX: E78.5 Hyperlipidemia, unspecified (principal); R73.03 Prediabetes

== ENCOUNTER → 2024-06-08 11:11 | Outpatient (BNVA) | payer OTHER, SELFPAY | PROVIDERS: PCP Internal Medicine; Visit Provider Internal Medicine | DX: E78.5 Hyperlipidemia, unspecified (principal); R73.03 Prediabetes | CPT/HCPCS: 99212 ==

== ENCOUNTER 2024-07-20 09:58 | Outpatient (REF) | payer OTHER, SELFPAY ==
--- NOTE | ~2024-07-20 | XR_ITS ---
EXAMINATION: XR HAND, RIGHT CLINICAL INFORMATION: M79.641 - Pain in right hand: Middle finger pain with swelling base of the PIP. No trauma. COMPARISON: None available. TECHNIQUE: PA, lateral, and oblique views of the right hand. FINDINGS: Bones are intact and normally mineralized. No fracture. Alignment is anatomic. Joint spaces are maintained. Specifically, the DIP and PIP joints of the third digit appear normal. The MCP joints have a normal appearance. No periarticular osteopenia or erosions are identified. There is soft tissue swelling surrounding the MCP joint of the third digit best noted on the lateral radiograph. The carpus are intact and aligned normally. No blunting of the ulnar styloid. Radiocarpal joint is normal. XR/XR hand RT min 3V IMPRESSION: 1. Soft tissue swelling dorsal to the MCP joint of the third digit, best appreciated on the lateral projection. 2. No underlying joint or bone abnormality seen. Electronically signed by: Deyvi Fraire MD 07/20/2024 12:01 PM EDT
== END 2024-07-20 09:59 | disposition home or self-care (01) ==
LOC: HO.HMGCX 09:58
PROVIDERS: PCP Internal Medicine; Visit Provider Nurse Practitioner Family
DX: M79.641 Pain in right hand (principal); M79.89 Other specified soft tissue disorders
CPT/HCPCS: 73130; 99212

== ENCOUNTER 2024-07-20 09:58 | Outpatient (AMB) | payer OTHER, SELFPAY ==
--- OUTSIDE RECORDS SUMMARY | 2024-07-20 10:57 | XMS_ITS | Patient Health Record ---
Author Organization [facility] Address [address] [place] [address] Care Team Providers Care Plating Equipment Tender Name Role Phone Maritza RAMÍREZ, Argelia Primary Care Provider Prem Dubon [phone] Allergies Allergen (clinical drug ingredient) Drug/Non Drug [...] capsule Orally Once a day Unknown D3-50 [id number] UNIT 1 capsule Orally once a week Unknown Immunizations Vaccine Route Administration Date Status Comme nts Influenza Unknown 11/17/2018 Refused Problems Problem Type SNOMED Code ICD Code Onset Dates Problem Status W/U Status Risk Notes Problem 933597240 Encounter for screening for malignant neoplasm of colon (Z12.11) Active confirmed Problem 956589235 History of adenomatous polyp of colon (Z86.010) Active confirmed Problem 114529007 Gastroesophageal reflux disease without esophagitis (K21.9) Active confirmed Problem 076571717 Family history o f colon cancer (Z80.0) Active confirmed Problem 440199773 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) Active [...] [place] [address] [place] [address] [id number] DIANA SOTO Self - patient is the insured [place] [facility] [address] [place] [address] [id number] DIANA SOTO Self - patient is the insured Medical (General) History Medical History History ICD Code GERD-EGD in 11/2013-smll HH-- minute area of Monique's esophagus but no dysplasia--no esophagitis EGD/Colon 09/18/2008--colono scopy with several small tubular adenomas removed, diverticulosis, and internal hemorrhoids; EGD with a small HH and reflux--no Monique's Denies AR,DM,CVA,Lung disease,renal dise ase Restless leg syndrome Hirsutism-facial hair--uses Spironolacto ne Negative colonoscopy in 11/2013 Hemorrhoidal bleeding-saw Dr. Do-- no surgery Surgical History Surgery Date(Month/Year) Hysterectomy Eye surgery Carpal tunnel on right Right eardrum surgery on 12/09/18-Dr. Julien on
--- NOTE | 2024-07-20 10:59 | AM.OFFWIN_ITS ---
Intake Vital Signs 3 07/20/24 11:00 Weight 148 lb BP 120/80 Blood Pressure Location Lt brachial Position Sitting Pulse 60 Pulse Source Pulse Oximeter Pulse Oximetry (%) 100 Oxygen Delivery Method Room Air Intake Visit Reasons: EP-rt hand swollen Intake Note: Patient here for right hand swelling and difficulty moving fingers that started Wednesday. Patient Tobacco Use Status: Never used Tobacco Allergies metronidazole [Flagyl] Allergy (Unknown, Verified 07/20/24 11:21) unknown Penicillins Allergy (Verified 07/20/24 11:21) Rash egg Allergy (Unknown, Uncoded 07/20/24 11:21) GI upset Codeine Sulfate Adverse Reaction (Unknown, Uncoded 07/20/24 11:21) palpitation Medication List - Last Reconciled 07/20/24 by CLIVE Foreman-GONZALO cyclobenzaprine 5 mg PO BID PRN 5 days diclofenac sodium 1% 4 grams topical BID 10 days dicyclomine 20 mg PO BID docusate sodium (DOK) 100 mg PO DAILY lorazepam 0.5 mg PO ONCE PRN omeprazole 40 mg PO DAILY ropinirole 1 mg PO DAILY rosuvastatin 5 mg PO DAILY 90 days spironolactone 50 mg PO DAILY Do you need a note to return to daycare/school/sports/work: No HPI HPI Comments 2 History of Present Illness0 Details History of Present Illness - The patient is a 68 year old female pr esenting with right hand pain and swelling. - The patient reported experiencing init ial finger pain, pointer, on Wednesday of the previous week, which progressed into notable swelling and pain in the right hand by the following morning. - The pain in the right hand is localize d primarily to two fingers, pointer and middle, affecting her ability to use the hand, with significant discomfort noted in specific movements. - The patient experienced similar, albei t less severe, symptoms in the left hand last week, which were quickly relieved with Tylenol for arthritis. - She denies any fever, chills, loss of sensation, trauma, visible redness, history of gout, insect bites, and recent travel that could have contributed to the condition. - No external inciting factors for the c urrent hand pain and swelling were identified. Discussion Notes During the visit, I discussed that the patient's current hand symptoms might result from an inflammatory process. I explained the necessity of obtaining an x-ray of the right hand to assess for any underlying structural issues, such as a fracture, which might require intervention. I informed the patient of the initial management plan, including a short course of steroids to help reduce inflammation and prescribed doxycycline to cover any possible joint infection. We discussed the importance of avoiding ibuprofen while taking prednisone and using Tylenol instead. Elevation of the hand and application of ice would help alleviate symptoms. After the completion of prednisone, if swelling and pain persist, she should continue using Tylenol. I explained how to access her results through the patient portal and the necessity to follow up using the portal to monitor results. Assessment and Plan 1. Right hand pain and swelling The patient exhibits signs consistent with an inflammatory condition affecting her right hand. An x-ray has been scheduled to exclude fractures or structural abnormalities. A course of prednisone and doxycycline is recommended to manage inflammation and prevent possible infection. The patient should avoid ibuprofen during prednisone therapy. She is advised to maintain hand elevation, apply ice, and monitor symptoms via the patient portal. Patient Instructions - Get an x-ray today of your right hand as directed. - Take prednisone as prescribed: 2 table ts once daily in the morning with food for 5 days. - Take doxycycline as prescribed: 1 tabl et twice daily for 7 days. - Avoid taking ibuprofen while on predni sone. - Use Tylenol for pain. Keep your hand e levated and apply ice wrapped in a towel to reduce swelling. - Use the patient portal to access your test results and follow up on your condition. - Seek medical care if symptoms worsen o r persist beyond expected recovery time. Consent Patient was informed and verbally consented to the use of an ambient scribe for clinic note documentation during this visit. Total time spent caring for the patient today was 30 minutes. This includes time spent before the visit reviewing the chart, time spent during the visit, and time spent after the visit on documentation, reviewing laboratory results, diagnostic imaging, medications, performing a medically necessary evaluation, counseling on diagnoses, care coordination, ordering appropriate tests, ordering appropriate medications, review of tests performed by other providers, reporting test results with the patient, communication with other healthcare providers. Right hand neurovasc intact, over area of erythema is warm to the touch, edema is localized the index and pointer fingers along w/ area of erythema; edema is limited ROM [facility] Medical History (Updated 07/20/24 @ 11:26 by Sharon Mcqueen, [facility]) Arthritis Blurred vision, right eye Depression, major, in remission Dyslipidemia Fear of flying GERD (gastroesophageal reflux disease) Heartburn Hiatal hernia Irritable bowel syndrome with constipation Osteopenia Prediabetes RLS (restless legs syndrome) Tubular adenoma of colon Surgical History History of carpal tunnel release History of ear surgery History of esophagogastroduodenoscopy (EGD) History of pterygium excision Hx of colonoscopy Hx of hysterectomy Family History Mother Mental health disorder Breast cancer Sister Breast cancer Social History Housing: House Alcohol intake: current Alcohol intake frequency: holidays/special occasions only Patient Tobacco Use Status: Never used Tobacco e-Cigarette/Vaping Use: Never Used Second Hand Smoke Exposure: No service: No Current occupational status: unemployed Cognitive needs: No Hearing needs: No Vision needs: Yes Physical Exam Vital Signs: Last Vital Signs Pulse 60 07/20/24 11:00 BP 120/80 07/20/24 11:00 Pulse Ox 100 07/20/24 11:00 Oxygen Delivery Method Room Air 07/20/24 11:00 Assessment & Plan Assessment & Plan (1) Hand pain, right: Code(s): M79.641 - Pain in right hand (2) Swelling of right hand: Code(s): M79.89 - Other specified soft tissue disorders Plan . Orders: Orders 2 XR hand RT min 3V Today M79.641 - Pain in right hand, M79.89 - Other specified soft tissue disorders Medications: New 2 prednisone 20 mg PO DAILY 10 tabs 0RF doxycycline hyclate 100 mg PO BID 7 days 14 caps 0RF Coding Level of Care Code Est Pt Level 4 (68154) Diagnoses Hand pain, right M79.641 Swelling of right hand M79.89
[2024-07-20 11:00] VITALS: BP 120/80; PULSE 60; O2SAT 100
== END 2024-07-20 11:36 | disposition home or self-care (01) ==
PROVIDERS: PCP Internal Medicine; Visit Provider Nurse Practitioner Family
DX: M79.641 Pain in right hand (principal); M79.89 Other specified soft tissue disorders

== ENCOUNTER → 2024-07-20 11:41 | Outpatient (BNV) | payer OTHER, SELFPAY | PROVIDERS: PCP Internal Medicine; Visit Provider Radiology Diagnostic Radiology | DX: M79.641 Pain in right hand (principal) | CPT/HCPCS: 73130 ==

== ENCOUNTER 2024-11-06 09:47 | Outpatient (REF) | payer OTHER, SELFPAY ==
--- OUTSIDE RECORDS SUMMARY | 2024-11-06 10:38 | XMS_ITS | Patient Health Record ---
[facility] Address [address] [place] [address] Care Team Providers Care Indoor Landscape Architect Name Role Phone Maritza RAMÍREZ, Argelia Banerjee Primary Care Provider Un available Patriciodung Kylah Unavailable [phone] Allergies Allergen (clinical drug ingredient) Drug/Non Drug Allergy documented on EMR Reaction Allergy Type Onset Date Status metronidazole Flagyl Unknown Drug Allergy Act allyson Penicillin Unknown Drug Allergy Active codeine codeine Unknown Drug Allergy Active Eggs Unknown Drug Allergy Active Reason For Referral No Information Medications Medication SIG (Take, Route, Frequency, Duration) Notes Start Date End Date Status Fish Oil 1000 MG 1 capsule Orally Onc e a day Active Calcium + D Active NexIUM 40 MG 1 capsule Orally Onc e a day Active rOPINIRole HCl 0.5 MG 1 tablet 1 to 3 ho urs before bedtime Orally Once a day Active LORazepam 0.5 MG 1 tablet as needed Orally Twice a day Active Spironolactone 50 MG 1 tablet Orally Onc e a day Active Tylenol Arthritis Pain 650 MG 1 tablet as needed Orally every 8 hrs Active Problems Problem Type SNOMED Code ICD Code Onset Dates Problem Status W/U Status Risk Notes Problem Plantar fascial fibromatosis (07437569) Plantar fascial fibromatosis (M72.2) Active confirmed Plan Of Treatment Pending Test Test Name Order Date ,Q5597-DUP TENDON SHEATH/LIGAMENT 1 Insurance Providers Payer Name Payer Address Payer Phone Subscriber Number Group Number Insured Name Patient Relationship to Insured Coverage Start Date Coverage End Date Medicare [employer] [address] [place] [address] [id number] Mirta Lopez Self - patient is the insured Medical (General) History Medical History History ICD Code Gastroesophageal reflux disease (GERD) Sleep apnea Hirsutism Restless leg syndrome osteoarthritis Osteopenia Surgical History Surgery Date(Month/Year) total hysterectomy eye surgery left carpal tunnel 1982
--- OUTSIDE RECORDS SUMMARY | 2024-11-06 10:38 | XMS_ITS | Patient Health Record ---
Author Organization [facility] Address [address] [place] [address] Care Team Providers Care Collection Systems Technician Name Role Phone Maritza RAMÍREZ, Argelia Primary Care Provider Prem Dubon [phone] Allergies Allergen (clinical drug ingredient) Drug/Non Drug [...] capsule Orally Once a day Unknown D3-50 50353 UNIT 1 capsule Orally once a week Unknown Immunizations Vaccine Route Administration Date Status Comme nts Influenza Unknown 11/17/2018 Refused Problems Problem Type SNOMED Code ICD Code Onset Dates Problem Status W/U Status Risk Notes Problem 334511040 Encounter for screening for malignant neoplasm of colon (Z12.11) Active confirmed Problem 437513334 History of adenomatous polyp of colon (Z86.010) Active confirmed Problem 964443573 Gastroesophageal reflux disease without esophagitis (K21.9) Active confirmed Problem 726994442 Family history o f colon cancer (Z80.0) Active confirmed Problem 254049041 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) Active [...] [place] [address] [place] [address] [id number] DIANA SOTO Self - patient is the insured [facility] [address] [place] [address] [id number] DIANA SOTO Self - patient is the insured Medical (General) History Medical History History ICD Code GERD-EGD in 11/2013-[facility]-- minute area of Monique's esophagus but no dysplasia--no esophagitis EGD/Colon 09/18/2008--colono scopy with several small tubular adenomas removed, diverticulosis, and internal hemorrhoids; EGD with a small HH and reflux--no Monique's Denies [place],DM,CVA,Lung disease,renal dise ase Restless leg syndrome Hirsutism-facial hair--uses Spironolacto ne Negative colonoscopy in 11/2013 Hemorrhoidal bleeding-saw Dr. Do-- no surgery Surgical History Surgery Date(Month/Year) Hysterectomy Eye surgery Carpal tunnel on right Right eardrum surgery on 12/09/18-Dr. Julien on
--- OUTSIDE RECORDS SUMMARY | 2024-11-06 10:39 | XMS_ITS | Clinical Summary ---
Author Organization [facility] Address [address] [place], [place] [address] Phone Care Team Providers Care Cloth Stretcher Name Role Phone Unknown, Unknown Primary Care Provider Aristeo maravilla Social History Tobacco Use Types Packs/Day Years Used Date Smoking Tobacco: Never Assessed Education Answer Date Recorded Are you interested in more education? Not on mendoza e 07/10/2022 Are you concerned about learning? Not on file 07/10/2022 No 07/10/2022 No 07/10/2022 Digital Access Answer Date Recorded No 08/11/2022 No 08/11/2022 Reliable internet access at home? Not on file 08/11/2022 Device with a working camera? Not on file Comments Unknown Sex and Gender Information Value Date Recorded Sex Assigned at Not on file Legal Sex Female 11:32 AM EST Gender Identity Not on file Sexual Orientation Not on file Last Filed Vital Signs Vital Sign Reading Time Taken Comments Blood Pressure 158/90 03/20/2019 11:36 AM EST Pulse 73 03/20/2019 11:36 AM EST Temperature 36.2 C (97.2 F) 03/20/2019 11:36 AM EST Respiratory Rate 16 03/20/2019 11:36 AM EST Oxygen Saturation 98% 03/20/2019 11:36 AM EST Inhaled Oxygen Concentration - - Weight - - Height - - Body Mass Index - - Plan of Treatment Not on file Medical Devices Not on file [place] [address] [place] [address] MED[address]ARE PART A [place] [address] [place] [address] MEDICARE PART A & [place] MEDIC[place] [address] [place] [address] MEDICARE PART A & B Care Teams Cloth Stretcher Relationship Specialty Start Date End Date Unknown, Unknown, PCP - General 03/20/19 Additional Source Comments The information contained in this document represents components of the legal health record. It is not the complete legal health record.[facility]
[2024-11-06 13:51] LABS: Alanine Aminotransferase 32 U/L (0-31); Aspartate Amino Transferase 37 U/L (5-31); Cholesterol 223 mg/dL (<200); HDL Cholesterol 49 mg/dL (>40); Triglycerides 128 mg/dL (<150)
[2024-11-06 16:13] LABS: Hemoglobin A1C 174.2262 umol/L; Total Hemoglobin (HGBA1C) 3825.2865 umol/L
== END 2024-11-06 09:48 | disposition home or self-care (01) ==
LOC: HO.HMGCLDS 09:47
PROVIDERS: PCP Internal Medicine; Visit Provider Internal Medicine
DX: M85.852 Other specified disorders of bone density and structure, left thigh (principal); E11.9 Type 2 diabetes mellitus without complications; F32.5 Major depressive disorder, single episode, in full remission; E78.5 Hyperlipidemia, unspecified
CPT/HCPCS: 36415; 80061; 82550; 83036; 84450; 84460

== ENCOUNTER 2024-11-09 11:15 | Outpatient (AMB) | payer OTHER, SELFPAY ==
[2024-11-09 12:22] VITALS: BP 108/68; PULSE 57; RESP 16; TEMP 36.8; O2SAT 100; BMI 28.3
--- NOTE | 2024-11-09 12:22 | MHC.PC.OV ---
Vital Signs 11/09/24 12:22 Height 5 ft Weight 145 lb BMI 28.3 BP 108/68 Blood Pressure Location Lt brachial Position Sitting Respiration 16 Pulse 57 Pulse Source Pulse Oximeter Temp 98.3 F Temp Source Oral Pulse Oximetry (%) 100 Oxygen Delivery Method Room Air Intake Visit Reasons: 5m follow up Intake Note: Pt is here today for her 5mo. f/u Allergies metronidazole (Flagyl) Allergy (Unknown, Verified 11/09/24 12:46) unknown Penicillins Allergy (Verified 11/09/24 12:46) Rash egg Allergy (Unknown, Uncoded 11/09/24 12:46) GI upset Codeine Sulfate Adverse Reaction (Unknown, Uncoded 11/09/24 12:46) palpitation Medication List - Last Reconciled 11/09/24 by Argelia Salas MD docusate sodium (DOK) 100 mg PO DAILY lorazepam 0.5 mg PO ONCE PRN omeprazole 40 mg PO DAILY ropinirole 1 mg PO DAILY rosuvastatin 5 mg PO DAILY 90 days spironolactone 50 mg PO DAILY Tobacco use date assessed: 11/09/24 Fall risk assessment: No Falls in past year Last assessed Fall Risk: 11/09/24 Dental Screening Dental Screen Date: 11/09/24 Did you have a dental visit in the last 12 months?: No Did you have a dental problem in the last 6 months where you did not have access to dental care?: No Was dental information given to patient?: Patient has dentist HPI 5m follow up HPI Details - The patient is a 69-year-old female presenting with right upper back, shoulder, and arm pain. - The pain began in July, initially assessed with x-ray showing no significant findings. - Swelling was noted, and an ER visit on September 16 attributed the pain to muscular causes, treated with a muscle relaxer. - Pain varies with activity, with some days pain-free and others with persistent discomfort. - Naproxen and Tylenol for arthritis provide temporary relief. - Right arm pain limits use, worsened by repetitive motion activities like cooking. - History of elevated cholesterol managed with rosuvastatin 5 mg daily, though adherence is inconsistent. - Recent labs show stable blood sugar, slightly elevated liver enzymes, and increased cholesterol. - Positive Cologuard test necessitates further evaluation with colonoscopy. [facility] Medical History Prediabetes Fear of flying Irritable bowel syndrome with constipation Depression, major, in remission Blurred vision, right eye Tubular adenoma of colon Heartburn RLS (restless legs syndrome) Osteopenia Dyslipidemia Arthritis Hiatal hernia GERD (gastroesophageal reflux disease) Surgical History History of pterygium excision History of ear surgery History of carpal tunnel release Hx of hysterectomy History of esophagogastroduodenoscopy (EGD) Hx of colonoscopy Family History Mother Mental health disorder Breast cancer Sister Breast cancer Social History Housing: House Alcohol intake: current Alcohol intake frequency: holidays/special occasions only Patient Tobacco Use Status: Never used Tobacco e-Cigarette/Vaping Use: Never Used Second Hand Smoke Exposure: No service: No Current occupational status: unemployed Cognitive needs: No Hearing needs: No Vision needs: Yes Questionnaire Thrive Questionnaire Date Thrive assessed: 03/28/24 I am a: Patient What is your living situation today?: I have a steady place to live Within the past 12 months, did the food you bought not last and you didn't have the money to get more?: I choose not to answer this question Within the past 12 months, did you worry whether your food would run out before you got money to buy more?: I choose not to answer this question Do you have trouble paying for medicines?: No Do you have trouble getting transportation to medical appointments?: No Do you have trouble paying your heating and electricity bill?: I choose not to answer this question Do you have trouble taking care of your child, family member or friend?: I choose not to answer this question Do you have trouble with day-to-day activities such as bathing, preparing meals, shopping, managing finances, etc.?: No Are you currently unemployed and looking for a job?: No Are you interested in more education?: No Please select the resources that you would like help with: None Currently or been in a relationship where the following occur: I choose not to answer THRIVE Score: 0 FUNMILAYO-7 AMB Questionnaire FUNMILAYO-7 Date FUNMILAYO - 7 assessed: 07/05/23 Source: Developed by DrsJesenia Palacios, Radha Arambula, Cody Rousseau and colleagues, with an educational cameron from [employer]. Review of Systems Const Denies headache(s) and Denies malaise Eyes Details: Dr Curtis ENT Denies dizziness, Denies headache(s) and Denies nasal congestion Card Reports no additional complaints Resp Reports no additional complaints GI Denies abdominal pain, Denies melena, Denies bloating, Denies change in bowel habits and Denies heartburn Reports no additional complaints Musc Reports as per HPI Neuro Denies dizziness and Denies headache(s) Psych Reports no additional complaints Endo Reports no additional complaints Ruben/Lymph Reports no additional complaints Aller/Immun Reports no additional complaints Physical exam (Primary Care) Vital Signs: Last Vital Signs Temp 98.3 F 11/09/24 12:22 Pulse 57 11/09/24 12:22 Resp 16 11/09/24 12:22 BP 108/68 11/09/24 12:22 Pulse Ox 100 11/09/24 12:22 Oxygen Delivery Method Room Air 11/09/24 12:22 BMI result Body Mass Index 28.3 Tobacco/Smoking Status: Tobacco use Status Tobacco use date assessed 11/09/24 11/09/24 12:25 Patient Tobacco Use Status Never used Tobacco 11/09/24 12:22 e-Cigarette/Vaping Use Never Used 11/09/24 12:22 Thrive Assessment: Date of Thrive Assessment Date Thrive assessed 03/28/24 11/09/24 12:22 Currently or been in a relationship where the following occur: I choose not to answer Coding Level of Care Code Est Pt Level 4 (24941) Complex EM visit Add On G2211 Diagnoses Upper back pain on right side M54.9 Pain of right upper extremity M79.601 Dyslipidemia E78.5 Prediabetes R73.03 Assessment & Plan Assessment & Plan (1) Upper back pain on right side: Code(s): M54.9 - Dorsalgia, unspecified (2) Pain of right upper extremity: Code(s): M79.601 - Pain in right arm (3) Dyslipidemia: Code(s): E78.5 - Hyperlipidemia, unspecified Category: Medical (4) Prediabetes: Code(s): R73.03 - Prediabetes Category: Medical Plan Patient was informed and verbally consented to the use of an ambient scribe for clinic note documentation during this visit. 1. Arthritis The patient reports right upper back, shoulder, and arm pain, suspected to be related to arthritis and a pinched nerve. Management includes the use of naproxen and Tylenol for arthritis, which provide temporary relief. Physical therapy has been ordered to address the pain and improve function. 2. Hypercholesterolemia The patient has a history of elevated cholesterol, managed with rosuvastatin 5 mg daily. Adherence to medication is inconsistent, and the patient is advised to improve adherence and dietary habits. 3. Positive Cologuard Test The patient has a positive Cologuard test, indicating the need for further evaluation with a colonoscopy. A referral for a colonoscopy has been recommended to investigate the positive result further. 4. Impaired fasting glucose. previous fasting blood sugars were elevated above 100 mg/dL. Impaired glucose metabolism increases the risk for developing diabetes mellitus type 2, as well as heart attack and stroke later on. Lifestyle changes that promotes weight loss, healthy eating habits, and regular exercise are important, and can prevent the progression to diabetes latest hemoglobin A1c is at 6.3% Orders: Orders Alanine Aminotransferase 02/03/25 E78.5 - Hyperlipidemia, unspecified, M85.852 - Other specified disorders of bone density and structure, left thigh, R73.03 - Prediabetes Aspartate Amino Transferase 02/03/25 E78.5 - Hyperlipidemia, unspecified, M85.852 - Other specified disorders of bone density and structure, left thigh, R73.03 - Prediabetes Basic Metabolic Panel Fasting 02/03/25 E78.5 - Hyperlipidemia, unspecified, M85.852 - Other specified disorders of bone density and structure, left thigh, R73.03 - Prediabetes Vitamin D 25-OH Total 02/03/25 E78.5 - Hyperlipidemia, unspecified, M85.852 - Other specified disorders of bone density and structure, left thigh, R73.03 - Prediabetes PT Evaluation and Treatment 11/09/24 M54.9 - Dorsalgia, unspecified, M79.601 - Pain in right arm Lipid Panel 02/03/25 E78.5 - Hyperlipidemia, unspecified, M85.852 - Other specified disorders of bone density and structure, left thigh, R73.03 - Prediabetes Hemoglobin A1c 02/03/25 E78.5 - Hyperlipidemia, unspecified, M85.852 - Other specified disorders of bone density and structure, left thigh, R73.03 - Prediabetes Medications: Discontinued cyclobenzaprine Discontinued Reason: Patient Completed Course 5 mg PO BID 5 days PRN 10 tabs 0RF muscle spasm diclofenac sodium 1% apply to single knee, ankle, foot; for foot includes sole/toes/top of foot Discontinued Reason: Patient Completed Course 4 grams topical BID 10 days 100 grams 0RF
--- OUTSIDE RECORDS SUMMARY | 2024-11-09 12:35 | XMS_ITS | Patient Health Record ---
Author Organization [facility] Address [address] [place] [address] Care Team Providers Care Tester Armature Or Fields Name Role Phone Maritza RAMÍREZ, Argelia Primary Care Provider Prem Dubon [phone] Allergies Allergen (clinical drug ingredient) Drug/Non Drug [...] capsule Orally Once a day Unknown D3-50 88751 UNIT 1 capsule Orally once a week Unknown Immunizations Vaccine Route Administration Date Status Comme nts Influenza Unknown 11/17/2018 Refused Problems Problem Type SNOMED Code ICD Code Onset Dates Problem Status W/U Status Risk Notes Problem 739138558 Encounter for screening for malignant neoplasm of colon (Z12.11) Active confirmed Problem 563331813 History of adenomatous polyp of colon (Z86.010) Active confirmed Problem 880834126 Gastroesophageal reflux disease without esophagitis (K21.9) Active confirmed Problem 368321650 Family history o f colon cancer (Z80.0) Active confirmed Problem 562344385 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) Active [...] [place] [address] [place] [address] [id number] DIANA SOTO Self - patient is the insured [facility] [address] [place] [address] [id number] DIANA SOTO Self - patient is the insured Medical (General) History Medical History History ICD Code GERD-EGD in 11/2013-[facility] HH-- minute area of Monique's esophagus but no dysplasia--no esophagitis EGD/Colon 09/18/2008--colono scopy with several small tubular adenomas removed, diverticulosis, and internal hemorrhoids; EGD with a small HH and reflux--no Monique's Denies [place],DM,CVA,Lung disease,renal dise ase Restless leg syndrome Hirsutism-facial hair--uses Spironolacto ne Negative colonoscopy in 11/2013 Hemorrhoidal bleeding-saw Dr. Do-- no surgery Surgical History Surgery Date(Month/Year) Hysterectomy Eye surgery Carpal tunnel on right Right eardrum surgery on 12/09/18-Dr. Julien on
--- OUTSIDE RECORDS SUMMARY | 2024-11-09 12:35 | XMS_ITS | Clinical Summary ---
Author Organization [facility] Address [address] [place], [place] [address] Phone Care Team Providers Care Cma Name Role Phone Unknown, Unknown Primary Care [...] file Medical Devices Not on file [place] [address] MEDICARE PART A & [place] [address] MEDICARE PART A & [place] & [place] MEDICARE PART A & [place] [address] MEDICARE PART A & B Care Teams Cma Relationship Specialty Start Date End Date Unknown, Unknown, PCP - General 03/20/19 Additional Source Comments The information contained in this document represents components of the legal health record. It is not the complete legal health record.[facility]
--- OUTSIDE RECORDS SUMMARY | 2024-11-09 12:35 | XMS_ITS | Patient Health Record ---
Author Organization [facility] Address [address] [place] [address] Care Team Providers Care Nuclear Weapons Specialist Name Role Phone Maritza RAMÍREZ, Argelia Banerjee Primary Care Provider Un available Patriciodung Kylah Unavailable [phone] Allergies Allergen (clinical drug ingredient) Drug/Non Drug [...] Status Risk Notes Problem Plantar fascial fibromatosis (82962947) Plantar fascial fibromatosis (M72.2) Active confirmed Plan Of Treatment Pending Test Test Name Order Date ,S3304-EIE TENDON SHEATH/LIGAMENT 1 Insurance Providers Payer Name Payer Address Payer Phone Subscriber Number Group Number Insured Name Patient Relationship to Insured Coverage Start Date Coverage End Date Medicare National [employer] [address] [place] [place] [address] [phone] [id number] Mirta Lopez Self - patient is the insured Medical (General) History Medical History History ICD Code Gastroesophageal reflux disease (GERD) Sleep apnea Hirsutism Restless leg syndrome osteoarthritis Osteopenia Surgical History Surgery Date(Month/Year) total hysterectomy eye surgery left carpal tunnel 1982
== END 2024-11-09 13:12 | disposition home or self-care (01) ==
LOC: HO.HMCC 11:16
PROVIDERS: PCP Internal Medicine; Visit Provider Internal Medicine
DX: M54.9 Dorsalgia, unspecified (principal); M79.601 Pain in right arm; E78.5 Hyperlipidemia, unspecified; R73.03 Prediabetes

== ENCOUNTER → 2024-11-09 11:15 | Outpatient (BNVA) | payer OTHER, SELFPAY | PROVIDERS: PCP Internal Medicine; Visit Provider Internal Medicine | DX: M79.601 Pain in right arm (principal); M54.9 Dorsalgia, unspecified; M25.519 Pain in unspecified shoulder; R73.03 Prediabetes; E78.00 Pure hypercholesterolemia, unspecified; R73.01 Impaired fasting glucose | CPT/HCPCS: 99212 ==

== ENCOUNTER 2025-02-12 07:53 | Outpatient (REF) | payer OTHER, SELFPAY ==
--- OUTSIDE RECORDS SUMMARY | 2025-02-12 07:57 | XMS_ITS | Patient Health Record ---
Author Organization [facility] Address [address] [place] [address] Care Team Providers Care Veterinary Manager Name Role Phone Maritza RAMÍREZ, Argelia Banerjee Primary Care Provider Un available Patriciodung Kylah Unavailable [phone] Allergies Allergen (clinical drug ingredient) Drug/Non Drug [...] Status Risk Notes Problem Plantar fascial fibromatosis (36072571) Plantar fascial fibromatosis (M72.2) Active confirmed Plan Of Treatment Pending Test Test Name Order Date ,U2873-YHB TENDON SHEATH/LIGAMENT 1 Insurance Providers Payer Name Payer Address Payer Phone Subscriber Number Group Number Insured Name Patient Relationship to Insured Coverage Start Date Coverage End Date Medicare National [employer]t [employer] [address] [place] [address] [id number] Mirta Lopez Self - patient is the insured Medical (General) History Medical History History ICD Code Gastroesophageal reflux disease (GERD) Sleep apnea Hirsutism Restless leg syndrome osteoarthritis Osteopenia Surgical History Surgery Date(Month/Year) total hysterectomy eye surgery left carpal tunnel 1982
--- OUTSIDE RECORDS SUMMARY | 2025-02-12 07:57 | XMS_ITS | Clinical Summary ---
Author Organization [facility] Address [address] [place], [place] [address] Phone Care Team Providers Care Cab Supervisor Name Role Phone Unknown, Unknown Primary Care [...] file Medical Devices Not on file [place] [address] [address] [address] MEDICARE PART A & [place] [address] [address] MEDICARE PART A & [place] & [place] MEDICARE PART A [place] [address] [address] MEDICARE PART A & B Care Teams Cab Supervisor Relationship Specialty Start Date End Date Unknown, Unknown, PCP - General 03/20/19 Additional Source Comments The information contained in this document represents components of the legal health record. It is not the complete legal health record.[facility]
--- OUTSIDE RECORDS SUMMARY | 2025-02-12 07:57 | XMS_ITS | Patient Health Record ---
Author Organization [facility] Address [address] [place] [address] Care Team Providers Care Locomotive Engineer Electric Name Role Phone Argelia Salas MD Primary Care Provider Prem Dubon [phone] Allergies Allergen (clinical drug ingredient) Drug/Non Drug Allergy documented on EMR Reaction Allergy Type Onset Date Status eggs (uncoded) Unknown Allergy Activ e codeine Codeine Sulfate Unknown Drug Allergy A ctive Penicillin Unknown Drug Allergy Active Reason For Referral No Information Medications Medication SIG (Take, Route, Frequency, Duration) Notes Start Date End Date Status Dulcolax 100 MG Capsule 1 tablet as need ed Orally Once a day Active Spironolactone 50 MG Tablet 1 tablet Ora lly Once a day Unknown Requip 5 MG Tablet 1 tablet Orally Once a day Unknown NexIUM 40 MG Capsule Delayed Release 1 capsule Orally Once a day Unknown D3-50 00637 UNIT Capsule 1 capsule Orall y once a week Unknown Immunizations Vaccine Route Administration Date Status Comme nts Influenza Unknown 11/17/2018 Refused Social History Social History Additional Details Category Social Info Options Details Miscellaneous: Marital status: single, bu t living with same man for 36 years Occupation: unemployed Section Notes: Nonsmoker; no sig alcohol Nonsmoker; no sig alcohol Problems Problem Type SNOMED Code ICD Code Onset Dates Problem Status W/U Status Risk Notes Problem Screening for malignant neoplasm of colon (312663612) Encounter for screening for malignant neoplasm of colon (Z12.11) Active confirmed Problem History of adenomatous polyp of colon (339946398) History of adenomatous polyp of colon (Z86.010) Active confirmed Problem Gastroesophageal reflux disease without esophagitis (114726644) Gastroesophageal reflux disease without esophagitis (K21.9) Active confirmed Problem Family History of Cancer of Colon (Situation) (547120141) Family history of colon cancer (Z80.0) Active confirmed Problem Monique's esophagus (221339111) 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 Plan Of [...] [place] [address] [place] [address] [id number] DIANA SOTO Self - patient is the insured MEDICAID [facility] [address] [place] [address] [id number] SOTO, DIANA Self - patient is the insured Medical (General) History Medical History History ICD Code GERD-[facility]-- minute area of Monique's esophagus but no dysplasia--no esophagitis EGD/Colon 09/18/2008--colono scopy with several small tubular adenomas removed, diverticulosis, and internal hemorrhoids; EGD with a small HH and reflux--no Monique's Denies [place],DM,CVA,Lung disease,renal dise ase Restless leg syndrome Hirsutism-facial hair--uses Spironolacto ne Negative colonoscopy in 11/2013 Hemorrhoidal bleeding-saw Dr. Do-- no surgery Surgical History Surgery Date(Month/Year) Hysterectomy Eye surgery Carpal tunnel on right Right eardrum surgery on 12/09/18-Dr. Julien on
[2025-02-12 11:31] LABS: Alanine Aminotransferase 22 U/L (0-31); Anion Gap 11 (12-20); Aspartate Amino Transferase 30 U/L (5-31); Blood Urea Nitrogen 16 mg/dL (9-16); Calcium 9.0 mg/dL (8.4-10.2); Carbon Dioxide 27 mmol/L (22-29); Chloride 106 mmol/L (96-108); Cholesterol 220 mg/dL (<200); Estimated Glomerular Filt Rate > 60; HDL Cholesterol 50 mg/dL (>40); Potassium 3.9 mmol/L (3.3-5.1); Sodium 140 mmol/L (135-145); Triglycerides 129 mg/dL (<150)
== END 2025-02-12 07:54 | disposition home or self-care (01) ==
LOC: HO.HMGCLDS 07:53
PROVIDERS: PCP Internal Medicine; Visit Provider Internal Medicine
DX: R73.03 Prediabetes (principal); E78.5 Hyperlipidemia, unspecified; M85.852 Other specified disorders of bone density and structure, left thigh
CPT/HCPCS: 36415; 80048; 80061; 82306; 83036; 84450; 84460

== ENCOUNTER 2025-03-13 07:54 | Outpatient (REF) | payer OTHER, SELFPAY ==
--- NOTE | ~2025-03-13 | XR_ITS ---
EXAMINATION: XR WRIST 3 OR MORE VIEWS RIGHT HISTORY: M25.531 - Pain in right wrist COMPARISON: There are no prior studies available for comparison. FINDINGS: Three views of the right wrist are submitted. Osseous mineralization is normal. There is no fracture or dislocation. The joint spaces are preserved. The soft tissues are unremarkable. XR/XR wrist RT min 3V IMPRESSION: Unremarkable examination of the right wrist. Electronically signed by: Prem Obrien MD 03/13/2025 09:59 AM [facility]
--- OUTSIDE RECORDS SUMMARY | 2025-03-13 10:09 | XMS_ITS | Clinical Summary ---
Author Organization [facility] Address [address] [place], [place] [id number] Phone Care Team Providers Care Family Nurse Practitioner Name Role Phone Unknown, Unknown Primary Care [...] file Medical Devices Not on file [place] [address] [place] [address] [address]ARE PART A & [place] [address] [place] [address] MEDICARE PART A & [place] & [place] MEDIC[place] PART [place] [address] [place] [address] MEDICARE PART A & B Care Teams Family Nurse Practitioner Relationship Specialty Start Date End Date Unknown, Unknown, PCP - General 03/20/19 Additional Source Comments The information contained in this document represents components of the legal health record. It is not the complete legal health record.[facility]
--- OUTSIDE RECORDS SUMMARY | 2025-03-13 10:09 | XMS_ITS | Patient Health Record ---
[facility] Address [address] [place] [address] Care Team Providers Care Filteration Operator Name Role Phone Maritza RAMÍREZ, Argelia Banerjee Primary Care Provider Un available Patriciodung Kylah Unavailable [phone] Allergies Allergen (clinical drug ingredient) Drug/Non Drug [...] Status Risk Notes Problem Plantar fascial fibromatosis (55707118) Plantar fascial fibromatosis (M72.2) Active confirmed Plan Of Treatment Pending Test Test Name Order Date ,[id number]-SXM TENDON SHEATH/LIGAMENT 1 Insurance Providers Payer Name Payer Address Payer Phone Subscriber Number Group Number Insured Name Patient Relationship to Insured Coverage Start Date Coverage End Date Medicare [employer] [address] [place] [address] [id number] Mirta Lopez Self - patient is the insured Medical (General) History Medical History History ICD Code Gastroesophageal reflux disease (GERD) Sleep apnea Hirsutism Restless leg syndrome osteoarthritis Osteopenia Surgical History Surgery Date(Month/Year) total hysterectomy eye surgery left carpal tunnel 1982
--- OUTSIDE RECORDS SUMMARY | 2025-03-13 10:09 | XMS_ITS | Patient Health Record ---
Author Organization [facility] Address [address] [place] [address] Care Team Providers Care Billet Checker Name Role Phone Argelia Salas MD Primary Care Provider Prem Dubon [phone] Allergies Allergen (clinical drug ingredient) Drug/Non Drug [...] capsule Orally Once a day Unknown [id number] UNIT Capsule 1 capsule Orall y once [...] Problem Screening for malignant neoplasm of colon (189473853) Encounter for screening for malignant neoplasm of colon (Z12.11) Active confirmed Problem History of adenomatous polyp of colon (642240023) History of adenomatous polyp of colon (Z86.010) Active confirmed Problem Gastroesophageal reflux disease without esophagitis (903189392) Gastroesophageal reflux disease without esophagitis (K21.9) Active confirmed Problem Family History of Cancer of Colon (Situation) (746016915) Family history of colon cancer (Z80.0) Active confirmed Problem Monique's esophagus (061392035) 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 [...] [place] [address] [place] [address] [phone] [id number] DIANA SOTO Self - patient is the insured [facility] [address] [place] [address] [id number] SOTO, DIANA Self - patient is the insured Medical (General) History Medical History History ICD Code GERD-EGD in 11/2013[facility]-- minute area of Monique's esophagus but no dysplasia--no esophagitis EGD/Colon 09/18/2008--colono scopy with several small tubular adenomas removed, diverticulosis, and internal hemorrhoids; EGD with a small HH and reflux--no Monique's Denies [place],DM,CVA,Lung disease,renal dise ase Restless leg syndrome Hirsutism-facial hair--uses Spironolacto ne Negative colonoscopy in 11/2013 Hemorrhoidal bleeding-saw Dr. Do-- no surgery Surgical History Surgery Date(Month/Year) Hysterectomy Eye surgery Carpal tunnel on right Right eardrum surgery on 12/09/18-Dr. Julien on
== END 2025-03-13 07:55 | disposition home or self-care (01) ==
LOC: HO.HOSX 07:54
DX: M65.4 Radial styloid tenosynovitis [de Quervain] (principal)
CPT/HCPCS: 20550; 73110; 99202; J1100; J2003

== ENCOUNTER 2025-03-13 09:17 | Outpatient (AMB) | payer OTHER, SELFPAY ==
[2025-03-13 09:24] VITALS: BMI 28.3
--- NOTE | 2025-03-13 09:24 | A.OFFVIS_ITS ---
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 of right distal radius fracture. [facility], patient presented complaining of 2 weeks of right wrist pain, radiating to the elbow. Patient was placed in a velcro wrist brace. Patient reports she just woke up with pain on 03/05/25 on the radial aspect of her right wrist. This is only 2 days from the day she was seen at the urgent care. She explains her swelling has gone down. She experiences pain when she tries using her hand off the velcro wrist brace. She denies any numbness, tingling, finger locking. She is taking Tylenol for pain with occasional relief. She reports history of right wrist surgery over 40 years ago, ? carpal tunnel release. 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 of right distal radius fracture. [facility], patient presented complaining of 2 weeks of right wrist pain, radiating to the elbow. Patient was placed in a velcro wrist brace. Patient had no acute injury at this time, but was told at the urgent care that she had a fracture, but the patient states she finds this hard to believe. Patient reports she just woke up with pain on 03/05/25 on the radial aspect of her right wrist. This is only 2 days from the day she was seen at the urgent care. She explains her swelling has gone down. She experiences pain when she tries using her hand off the velcro wrist brace. She denies any numbness, tingling, finger locking. She is taking Tylenol for pain with occasional relief. She reports history of right wrist surgery over 40 years ago, for de Quervain tenosynovitis [facility] Medical History Prediabetes Fear of flying Irritable bowel syndrome with constipation Depression, major, in remission Blurred vision, right eye Tubular adenoma of colon Heartburn RLS (restless legs syndrome) Osteopenia Dyslipidemia Arthritis Hiatal hernia GERD (gastroesophageal reflux disease) Surgical History History of pterygium excision History of ear surgery History of carpal tunnel release Hx of hysterectomy History of esophagogastroduodenoscopy (EGD) Hx of colonoscopy Family History Mother Mental health disorder Breast cancer Sister Breast cancer Social History (Updated 03/13/25 @ 09:30 by ERIK Hannah) Housing: House Alcohol intake: current Alcohol intake frequency: holidays/special occasions only Patient Tobacco Use Status: Never used Tobacco e-Cigarette/Vaping Use: Never Used Second Hand Smoke Exposure: No service: No Current occupational status: retired Current occupation: rt handed Cognitive needs: No Hearing needs: No Vision needs: Yes Physical Exam Vital Signs: BMI result Body Mass Index 28.3 Extrem Other: Patient is alert, oriented, and in no acute distress. Neuro: Normal sensation of the tips of all digits of the right hand at this time Vascular: Cap refill brisk Pain: Tenderness to palpation of right radial styloid Positive Chastity on the right No pain with CMC grind or palpation of the MCP joint of the right thumb ROM: Patient was able to make a closed fist and extend all digits of the right hand fully and without difficulty Skin: No lacerations or abrasions. General: No ecchymosis, erythema, or evidence of infection. Psych: Appears grossly normal Affect normal Attitude cooperative Office Procedures AMB Tendon Injection Tendon Injection 30893-Frshag Tendon Sheath Injection All charges added?: Procedure code (CPT) selection complete Results Reviewed Results Reviewed: X-rays obtained in the office today and independently reviewed by , Reno Conteh PA-C, demonstrate no fracture or acute bony abnormality of the right hand or wrist. Assessment & Plan Assessment & Plan (1) De Quervain's tenosynovitis, right: Code(s): M65.4 - Radial styloid tenosynovitis [de Quervain] Category: Medical Plan 1. Right de Quervain tenosynovitis Status post right 1st dorsal compartment release approximately 40 years ago Patient was educated about this condition Patient is educated about the treatment options available Patient would like to proceed with steroid injection at this time Injection #1: The risks and benefits of a steroid injection including but not limited to risk of damage to blood vessels, nerves, tendons, infection, skin bleaching, failure to improve symptoms, increased pain, and possible need for further injections or other intervention were discussed with the patient and the patient wishes to proceed with the steroid injection. Once consent was obtained, I sterilely prepped the area over the 1st dorsal compartment of the right thumb. I then injected the 1st dorsal compartment with a combination of 1 mL of dexamethasone (4mg/ml), and 1% lidocaine. The patient tolerated the procedure well with no complications and good resolution of their symptoms prior to leaving clinic. If the patient continues to have pain 6-8 weeks following this injection, they may call to schedule appointment to discuss alternative treatment options Orders: Orders XR wrist RT min 3V Today M25.531 - Pain in right wrist Coding Level of Care Code New Pt Level 3 (18631) Diagnoses De Quervain's tenosynovitis, right M65.4 CPT Codes Tendon Injection - Tendon Injection 1: [id number]-[id number] Tendon Sheath Injection ([id number])
--- OUTSIDE RECORDS SUMMARY | 2025-03-13 11:45 | XMS_ITS | Data Portability ---
Author Organization [place] - [facility], Allergy Address [address] [place] [id number] Care Team Providers Care Coding Tech Name Role Phone JEN GARDINER Primary Care Provider Assessment Encounter Date Assessment Date Assessment LastModified by Organization Details LastModified Time 08/24/2024 08/24/2024 The right eardrum remains well-healed following tympanoplasty . Mild scarring present, but no signs of acute or chronic inflammation. Not available 08/24/2024 14:07:42 Plan of Treatment Reminders Order Date Submit Date Provider Last Modified By Organization Details Last Modified Time Details Appointments None record ed. Lab None record ed. Referral None record ed. Procedures None record ed. Surgeries None record ed. Imaging None record ed. Medication Orders None record ed. Patient TargetsNo targets recorded. Patient InstructionsNo instructions recorded. Reason for Referral None Reported. Results Created Date Observation Date Name Description Value Unit Range Abnormal Flag Note LastModifiedBy Organization Detail LastModifiedTime 08/26/19 25 audio gram No observ ation record ed. BARCODE Not Available 2024 09:20:51 Result Notes None recorded. 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 , right ear; Note: Date Diagnose d: 9 9:16 AM (H73.811 ) Not Available [facility] 4 03:10:37 Conducti ve hearing loss 95386419 Active 2018 Conducti ve hearing loss, unilater al, right ear, with unrestri cted hearing on the contrala teral side; Note: Date Diagnose d: 9 9:52 AM (H90.11) Not Available [facility] 4 03:10:37 Marginal perforat ion of tympanic membrane 24101817 Completed 201810/15/2023 Other marginal perforat ions of tympanic membrane , right ear; Note: Date Diagnose d: 9 9:15 AM (H72.2X1 ) Not Available [facility] 4 03:10:38 Follow-u p visit Active 2018 Medical surveill ance followin g complete d treatmen t; Note: Date Diagnose d: 9 10:53 AM (Z09) Not Available [facility] 4 03:10:38 Impacted cerumen in right ear 62625172444 75095 Active 2018 Impacted cerumen, right ear; Note: Date Diagnose d: 01/13/20 19 10:25 AM (H61.21) Not Available [facility] 4 03:10:38 Otalgia of right ear 6229198909 Active 2019 Otalgia, right ear; Note: Date Diagnose d: 03/23/2019 11:14 AM (H92.01) Not Available [facility] 4 03:10:37 Cough 07232956 Active 2019 Cough; Note: Date Diagnose d: 03/23/2019 11:13 AM (R05) Not Available [facility] 4 03:10:38 Sensorin eural hearing loss 84587448 Active 2022 Sensorin eural hearing loss, unilater al, right ear, with unrestri cted hearing on the contrala teral side; Note: Date Diagnose d: 3 4:39 PM (H90.41) Not Available [facility] 4 03:10:37 Disorder of right Eustachi an tube 65243995878 26394 Active 2023 Other specifie d disorder s of Eustachi an tube, right ear; Note: Date Diagnose d: 06/22/2023 9:38 AM (H69.81) Not Available [facility] 4 03:10:38 Mixed conducti ve and sensorin eural hearing loss of right ear with normal hearing on left side 1380477339 Active 2024 MARGARITA DEAN MA, CCC-A [address] [facility],[place] [address], [place], [address] , [facility] 5 13:32:38 Referred otalgia of right ear 29897508389 08300 Active 2024 SATNAM TRINH MD [address] [facility],[place] [address], [place], [address] , [facility] 5 14:06:33 Problem Notes None recorded. Procedures Surgical History Date Name Laterality Status Provider Name and Address Organization Details Recorded Time 08/24/2024 Air & Speech Audio with Tymps - 44334, 94266 & 53606 completed MARGARITA DEAN MA, [facility] [address] [facility],[place] [address], [place], [address], [facility] 08/24/2024 13:32:49 Imaging Results None recorded. Procedure Notes None recorded. Medical Equipment None Reported. Allergies Allergen ID Allergen Name Allergen Category Reaction Reaction Severity Criticality Documentation Date Start Date Code Code System Note Provider Name and Address Organization Details Recorded Time 475626 codeine sulfate medicatio n other Not available Not available 07/27/2023 18565 RxNorm React ion: unkno wn, unspe cifie d;; Not Available [facility] 4 01:25:18 738008 Product containin g penicilli n (product) medicatio n other Not available Not available 07/27/2023 65444 8001 SNOMED React ion: unkno wn, unspe cifie d;; Not Available [facility] 4 01:25:18 Medications Name Sig Start Date Stop Date Status Note LastModified by Organization Details LastModified Time doxycycli ne hyclate 100 mg capsule TAKE 1 CAPSULE BY MOUTH TWICE A DAY FOR 7 DAYS 08/24 completed Not Available Not Available Not Available ropinirol e 1 mg tablet 2024 active Medicati on ID: [id number] D uration Value: 30 Brand Name: latosha huerta Send Method: E-Prescr ibed Sub s Allowed: subs OK Speci al Instruct ion: TK 1 T PO HS Medic ationGen ericName : latosha le Not Available Not Available Not Available prednison e 20 mg tablet TAKE 1 TABLET BY MOUTH EVERY DAY 08/24 completed Not Available Not Available Not Available Ciloxan 0.3 % eye drops 4 drop 08/24 completed Medicati on ID: [id number] D uration Value: 14 Prescri bed By Name: MONSE Craig nd Name: Ciloxan Send Method: E-Prescr ibed Sub s Allowed: subs OK Speci al Instruct ion: Instill 4 drops twice a day into the affected ear x 10 days Med icationG enericNa me: Ciloxan Not Available Not Available Not Available omeprazol e 40 mg capsule,d elayed release active Medicati on ID: [id number] B rand Name: omeprazo le Send Method: E-Prescr ibed Sub s Allowed: subs OK Medic ationGen ericName : omeprazo le Not Available Not Available Not Available Nexium 20 mg capsule,d elayed release 06/21 completed Medicati on ID: [id number] B rand Name: Nexium S end Method: E-Prescr ibed Sub s Allowed: subs OK Medic ationGen ericName : Nexium Not Available Not Available Not Available lorazepam 0.5 mg tablet TAKE 1 TABLET BY MOUTH ONCE NEEDED FOR FEAR OF FLYING 08/24 completed Not Available Not Available Not Available DOK 100 mg capsule 08/24 completed Medicati on ID: [id number] D uration Value: 30 Brand Name: DOK Send Method: E-Prescr ibed Sub s Allowed: subs OK Speci al Instruct ion: TK 1 C PO QD PRN Medi cationGe nericNam e: DOK Medi cation ID: [id number] D uration Value: 30 Brand Name: DOK Send Method: E-Prescr ibed Sub s Allowed: subs OK Speci al Instruct ion: TK 1 C PO QD PRN Medi cationGe nericNam e: DOK Not Available Not Available Not Available dicyclomi ne 20 mg tablet TAKE 1 TABLET BY MOUTH TWICE A DAY 08/24 completed Not Available Not Available Not Available cephalexi n 500 mg capsule TAKE 1 CAPSULE ORALLY EVERY 6 HOURS 08/24 completed Not Available Not Available Not Available ropinirol e 0.5 mg tablet 08/24 completed Medicati on ID: [id number] D uration Value: 30 Brand Name: latosha huerta Send Method: E-Prescr ibed Sub s Allowed: subs OK Speci al Instruct ion: TK 1 T PO HS Medic ationGen ericName : tonoro le Medic ation ID: [id number] D uration Value: 30 Brand Name: tonoro le Send Method: E-Prescr ibed Sub s Allowed: subs OK Speci al Instruct ion: TK 1 T PO HS Medic ationGen ericName : tonoro le Not Available Not Available Not Available spironola ctone 50 mg tablet 2018 active Medicati on ID: [id number] D uration Value: 90 Brand Name: spironol actone S end Method: E-Prescr ibed Sub s Allowed: subs OK Speci al Instruct ion: TK 1 T PO BID Medi cationGe nericNam e: spironol actone Not Available Not Available Not Available oxycodone 5 mg tablet 1 tablet by mouth 08/24 completed Medicati on ID: [id number] D uration Value: 3 Prescri bed By Name: Ania Garcia nd Name: oxycodon e Send Method: E-Prescr ibed Sub s Allowed: subs OK Medic ationGen ericName : oxycodon e Not Available Not Available Not Available TobraDex 0.3 %-0.1 % eye drops,anna pension 02/01 completed Medicati on ID: [id number] D uration Value: 10 Prescri bed By Name: Ania Garcia nd Name: TobraDex Send Method: E-Prescr ibed Sub s Allowed: subs OK Speci al Instruct ion: Instill 4 drops in the affected ear BID for 5 days Med icationG enericNa me: TobraDex Not Available Not Available Not Available cyclobenz aprine 5 mg tablet TAKE 1 TABLET BY MOUTH 2 TIMES A DAY NEEDED FOR MUSCLE SPASM FOR 5 DAYS 08/24 completed Not Available Not Available Not Available rosuvasta tin 5 mg tablet active Medicati on ID: [id number] B rand Name: rosuvast atin Sen d Method: E-Prescr ibed Sub s Allowed: subs OK Medic ationGen ericName : rosuvast atin Not Available Not Available Not Available DOK 06/21 completed Medicati on ID: [id number] D uration Value: 30 Brand Name: DOK Send Method: E-Prescr ibed Sub s Allowed: subs OK Speci al Instruct ion: TK 1 C PO QD PRN Medi cationGe nericNam e: DOK Not Available Not Available Not Available cholecalc iferol (vitamin D3) 1,250 mcg (50,000 unit) capsule 08/24 completed Medicati on ID: [id number] D uration Value: 28 Brand Name: cholecal ciferol (vitamin D3) Send Method: E-Prescr ibed Sub s Allowed: subs OK Speci al Instruct ion: TK 1 C PO ONCE WEEKLY X 8 WEEKS Me dication GenericN rema: cholecal ciferol (vitamin D3) Not Available Not Available Not Available Reguloid, Sugar Free oral powder 08/24 completed Medicati on ID: [id number] D uration Value: 24 Brand Name: Reguloid , Sugar Free Sen d Method: E-Prescr ibed Sub s Allowed: subs OK Medic ation ericName : Reguloid , Sugar Free Med ication ID: [id number] D uration Value: 24 Brand Name: Reguloid , Sugar Free Sen d Method: E-Prescr ibed Sub s Allowed: subs OK Medic ationGen ericName : Reguloid , Sugar Free Not Available Not Available Not Available Reguloid, Sugar Free 06/21 completed Medicati on ID: [id number] D uration Value: 24 Brand Name: Reguloid , Sugar Free Sen d Method: E-Prescr ibed Sub s Allowed: subs OK Medic ationGen ericName : Reguloid , Sugar Free Not Available Not Available Not Available Vitals None Recorded Social History None recorded. Functional Status None recorded. Mental Status None recorded. Family History Nothing Reported. Medical History Condition Response Migraines Y High Cholesterol Y GERD/Reflux Y Gynecological HistoryNo gynecological history recorded. Obstetrics History GPAL:G 0 P 0 0 0 0 Past Encounters Encounter ID Performer Location Encounter Start Date Encounter Closed Date Diagnosis/Indication Diagnosis SNOMED-CT Code Diagnosis ICD10 Code Diagnosis IMO Codes Diagnosis Note [id number] SATNAM TRINH MD [facility] [address] [address] 08/24/2024 12:58:43 08/24/2024 16:07:15 Mixed conductive and sensorineural hearing loss of right ear with normal hearing on left side [id number] H90.71 [id number] Audiologic al evaluation results:[facility] ear: 08-24-2024 orderline normal to a to a mild mixed hearing loss with excellent word recognitio n.Left ear:Normal hearing with excellent word recognitio n. Tympanomet ry:Right Ear:Type ALeft Ear:Type AMinimal difference between the right ear and the left ear, overall stable in comparison to previous audiograms Referred o talgia of right ear [id number] 462480 H92.01 M26.621 M79.11 The patient complains of intermitte nt right-side d periauricu lar discomfort . Physical exam reveals no identifiab le source of these symptoms involving the auricle, external auditory canal, or tympanic membrane. Audiometri c testing and tympanomet ry are similarly unrevealin g. Furthermor e, examinatio n was positive for crepitus and tenderness of the right jaw joint and kan-TMJ musculatur e. The patient's periauricu lar discomfort is most likely consistent with intermitte nt inflammati on of the jaw joint or spasm of the surroundin g musculatur e. This is likely exacerbate d by the missing teeth . I recommende d the patient use light massage, warm compresses and anti-infla mmatories for symptomati c management . Stressed chewing evenly on both sides of the mouth to keep from overworkin g the jaw joint. Use soft food diet as needed. Jaw Joint Program informatio n sheet was shared. If this treatment plan is ineffectiv e, recommend follow up with their dentist, in particular to deal with her multiple missing molars which is affecting her chewing.. Referral to physical therapist who specialize s in TMJ disorders could also be considered . Health Concerns Section Related Observation LastModified by Organization Detai ls LastModified Time None Recorded Concern Status LastModified by Organization Details LastModified Time None Recorded Advance Directives Directive None Recorded Payers Insurance Date Sequence Insurance Name Policy Number Policy Mendez Covered Member ID Mendez Member ID Guarantor Name 08/24/2024 1 [facility] - DOS ON OR AFTER 2022 - MEDICARE ADVANTAGE [place] (MEDICARE REPLACEMENT/ADV ANTAGE - PPO) Martha E Lopez [id number] Martha E Lopez 08/24/2024 1 [facility] - DOS ON OR AFTER 2022 - [employer] AND [employer] (MEDICARE REPLACEMENT/ADV ANTAGE - PPO) Martha E E Lopez [id number] Martha E Lopez Notes Date Note Type Note Provider Name and Address Organization Details Recorded Time 08/24/2024 text/html Patient with history of right transcanal tympanoplasty with me back in 2018. Procedure was successful. Last seen back in June 2023 at which point she was noted to have a dimeric area in the drum which gives the appearance of a perforation when in fact the tympanic membrane was intact. Patient noted at that time to have mild eustachian tube dysfunction.Patient reports that for the past 2 weeks, she has been getting intermittent pain in the right periauricular region, right greater than left. She reports the pain will come all of a sudden and be quite painful for 5 or 10 minutes, then it will go away. No discharge from the ear. No changes in the hearing. Patient reports multiple missing teeth having had dental surgery many years ago. She has not seen a dentist in many years. Because of her missing teeth she only chews on the left side of her mouth. SATNAM TRINH MD [address] [place] [address], [place], [address], [place] [facility] 08/24/2024 14:08:39 OBGyn Episode No OBEpisode recorded.
== END 2025-03-13 10:05 | disposition home or self-care (01) ==
PROVIDERS: PCP Internal Medicine
DX: M65.4 Radial styloid tenosynovitis [de Quervain] (principal)
CPT/HCPCS: 20550; 99203

== ENCOUNTER → 2025-03-13 09:19 | Outpatient (BNV) | payer OTHER, SELFPAY | PROVIDERS: Visit Provider Radiology Diagnostic Radiology | DX: M25.531 Pain in right wrist (principal) | CPT/HCPCS: 73110 ==